=== PATIENT | male | born 1965 | race Caucasian/White ===

== ENCOUNTER 2020-09-03 08:03 | Emergency (ER) | payer MEDICAID, SELFPAY ==
[2020-09-03 08:04] VITALS: BP 156/86; PULSE 76; RESP 22; TEMP 36; O2SAT 96; BMI 32.4
[2020-09-03 08:05] VITALS: BP 156/86; PULSE 76; RESP 22; TEMP 36; O2SAT 96
--- NOTE | 2020-09-03 08:12 | EDS_ITS ---
HPI History of Present Illness Chief Complaint: Bite Narrative Narrative: Patient presents with multiple dog bites. He states that he went to pet the dog this morning about an hour ago when it started to bite him. He sustained bites to the left and right arm. His last tetanus is unknown. He sustained a laceration to the left proximal forearm and left wrist area. He sustained also multiple puncture wounds. He called EMS and they administered fentanyl for pain control. He has had no fevers. Bleeding was controlled on scene. The dog's immunizations are all up-to-date as well. Tetanus Immunization: Unknown PFSH PFSH Medical History Asthma Chest pain Coronary artery disease GERD (gastroesophageal reflux disease) Hypertension Myocardial infarct Smoker Home Medications cefuroxime axetil 500 mg PO BID #20 tab 09/03/20 [Rx Last Taken Unknown] hydrocodone-acetaminophen 1 tab PO Q6H PRN PRN 3 Days #10 tablet 09/03/20 [Rx Last Taken Unknown] Allergy/AdvReac Type Severity Reaction Status Date / Time Penicillins [PCN] Allergy Vomiting Verified 09/03/20 08:06 Surgical History History of coronary artery stent placement Social History Smoking Status: Current some day smoker ROS [facility] ED Constitutional Constitutional ED: Denies chills or fever(s) Eyes Eyes: Denies blurry vision, change in vision or diplopia ENT ENT ED: Denies ear pain, rhinorrhea or sore throat Cardiovascular Cardiovascular: Denies chest pain or palpitations Respiratory/Chest Respiratory/Chest: Denies cough, dyspnea or sputum Gastrointestinal Gastrointestinal: Denies abdominal pain, diarrhea, nausea or vomiting Genitourinary Genitourinary ED: Denies dysuria, hematuria or urinary frequency Musculoskeletal Musculoskeletal: Denies back pain or neck pain Integumentary Reports other Details: Multiple dog bites Neurologic Neurologic: Denies headache(s), numbness or weakness Psychiatric Psychiatric: Denies anxiety or depression Endocrine Endocrinology: Denies polydipsia or polyuria EXAM Physical Exam Const Vital Signs: 09/03/20 08:04 09/03/20 08:05 Temperature 96.8 F L 96.8 F L Temperature Source Oral Oral Pulse Rate 76 76 Respiratory Rate 22 H 22 H Blood Pressure 156/86 H 156/86 H Blood Pressure Mean 109 109 Pulse Ox 96 96 Oxygen Delivery Method Room Air Room Air Positive well nourished and well developed General Appearance ED: well developed HEENT normocephalic and atraumatic Eyes PERRL and EOMs intact bilaterally Neck full ROM and supple Extremity Extremity Narrative: Distal left upper arm, whole left forearm and right forearm due to dog bitesTenderness Neuro oriented x3, CN's II-XII intact bilaterally and no focal motor deficits Sensorium / Orientation: alert Skin Skin Narrative: Multiple dog bite puncture wounds noted at the left distal forearm, left distal upper arm and right forearm. He also has a 2.5 cm laceration on the dorsal side of left wrist. There is also a 7 cm T-shaped laceration of the left proximal forearm on the radial side. Bleeding is controlled in all of these areas. Trauma: other MDM MDM MDM Narrative Medical decision making narrative: The patient had his tetanus updated. I started him on Ceftin for antibiotic prophylaxis. Lacerations were repaired with 10 total sutures, loosely approximated. I will give him follow-up with wound care as this will likely need multiple visits to ensure proper healing. Discharge Plan Triage Chief Complaint: Bite ED Provider: Benigno Valentin Dx/Rx/DC Orders Clinical Impression: Dog bite of arm Instructions: ED Dog Bite Prescriptions: New cefuroxime axetil 500 mg tablet 500 mg PO BID Qty: 20 RF: 0 hydrocodone-acetaminophen [hydrocodone-acetaminophen] 1 TABLET tablet 1 tab PO Q6H PRN PRN (Reason: Pain) 3 Days Qty: 10 RF: 0 Primary Care Provider: Care Physician,No Primary Referrals: Care Physician,No Primary [Primary Care Provider] - Clinic,NOW [NON-STAFF] - Disposition Disposition: Home, self care
[2020-09-03] MEDS: CEFUROXIME AXETIL 250 MG TABLET 500 MG PO (08:30)
[2020-09-03] MEDS: Diphth,Pertuss(Acell),Tet Vac 0.5 ML Vial IM (08:35)
[2020-09-03] MEDS: Lidocaine 1% (20 ml mdv) 20 ML Vial INFILT (09:30)
[2020-09-03 09:35] VITALS: BP 176/88; PULSE 76; RESP 16; O2SAT 97
== END 2020-09-03 09:35 | disposition home or self-care (01) ==
PROVIDERS: Emergency Provider Emergency Medicine
DX: S50.872A Other superficial bite of left forearm, initial encounter (principal); S50.871A Other superficial bite of right forearm, initial encounter; S60.872A Other superficial bite of left wrist, initial encounter; W54.0XXA Bitten by dog, initial encounter; Y93.9 Activity, unspecified; Y92.9 Unspecified place or not applicable; I25.2 Old myocardial infarction; I25.10 Atherosclerotic heart disease of native coronary artery without angina pectoris; J45.909 Unspecified asthma, uncomplicated; Z95.5 Presence of coronary angioplasty implant and graft; Z87.891 Personal history of nicotine dependence
CPT/HCPCS: 12004; 90471; 90715; 99285

== ENCOUNTER 2020-09-05 23:50 | Emergency (ER) | payer MEDICAID, SELFPAY ==
[2020-09-05 23:50] VITALS: BP 159/76; PULSE 118; RESP 18; TEMP 36.7; O2SAT 99; BMI 33.4
[2020-09-05 23:52] VITALS: BP 159/76; PULSE 100; RESP 18; TEMP 36.7; O2SAT 99
--- NOTE | 2020-09-06 00:27 | CT_ITS ---
STUDY: CT LEFT FOREARM WITH CONTRAST REASON FOR EXAM: Male, 55 years old. infected dog bite to left forearm RADIATION DOSAGE (If Supplied By Facility): CTDIvol = ( 24.58 ) mGy, DLP = ( 910.93 ) mGycm TECHNIQUE: Transaxial CT imaging of the forearm was performed post contrast administration. The examination was performed with intravenous administration of IV 100mL Isovue-300. Sagittal and coronal images were reconstructed. Individualized dose optimization techniques were used for this CT. COMPARISON: None. FINDINGS: No acute osseous injury. Diffuse subcutaneous soft tissue swelling and edema with subcutaneous emphysema compatible with history of dog bite. Likely cellulitis. No evidence of abscess. No evidence of deep muscular extension. CT/Extremity Upper WITH Contrast IMPRESSION: Probable cellulitis. No evidence of abscess. No evidence of osseous involvement. Electronically Signed: Chalo Finch DO at 1:31 EDT Tel , Service support ,
[2020-09-06 00:49] LABS: Anion Gap 4 (5-15); BUN 17 mg/dL (7-18); BUN/Creat Ratio 10.8 RATIO (10-20); Calcium,Total 8.5 mg/dL (8.5-10.1); Chloride 101 mmol/L (98-107); Creatinine, Serum 1.58 mg/dL (0.70-1.30); EST Glomerular Filtration Rate 49 mL/min (>60); Est Glom Filt Rate - Afr Amer 59 mL/min (>60); Estimated Creatinine Clearance 47.11 ml/min; Glucose 132 mg/dL (74-106); Potassium 4.2 mmol/L (3.5-5.1); Sodium Level 132 mmol/L (136-145)
[2020-09-06 00:52] VITALS: BP 159/76; PULSE 100; RESP 18; TEMP 36.7; O2SAT 99
[2020-09-06 01:08] LABS: Absolute Lymphocyte Count 1.34 X10^3/uL (0.83-4.51); Absolute Neutrophil Count 19.4 X10^3/uL (2.0-7.7); Basophil# 0.08 X10^3/uL; Basophil% 0.4 % (0-1); Eosinophil# 0.29 X10^3/uL; Eosinophils% 1.3 % (0-5); Hematocrit 42.1 % (40-54); Hemoglobin 13.8 g/dL (13.0-16.5); Lymphocyte # 1.34 X10^3/ul (0.83-4.51); Lymphocyte % 5.9 % (19-41); Mean Corp Hgb Conc 32.8 g/dL (32-36); Mean Corpuscular Hgb 28.3 pg (27.0-32.0); Mean Corpuscular Volume 86.4 fL (80-94); Mean Platelet Vol. 10.9 fl (6.2-12.0); Monocyte% 6.2 % (0-10); NRBC Flagged by Analyzer 0 % (0-5); Neutrophil # 19.38 X10^3/uL (2.7-7.7); Neutrophil % 85.6 % (47-70); Platelet Count 337 K/mm3 (150-450); RBC Distribution Width CV 13.5 % (11.6-14.6); RBC Distribution Width SD 42.7 fl (35.1-43.9); Red Blood Count 4.87 M/mm3 (4.6-6.2); White Blood Count 22.6 K/mm3 (4.4-11.0)
[2020-09-06] MEDS: Ciprofloxacin 400 MG/200 ML BAG 200 MG IV (01:49)
[2020-09-06 01:50] VITALS: BP 146/80
[2020-09-06 02:00] VITALS: BP 146/80; PULSE 91; RESP 18; TEMP 36.9; O2SAT 99
[2020-09-06 02:52] LABS: Lactic Acid 1.3 mmol/L (0.4-1.9)
--- NOTE | 2020-09-06 03:22 | EDS_ITS ---
HPI History of Present Illness Chief Complaint: Bite Informant: patient Occured/Mechanism Comment: Dog bite on September 03 Onset/Context/Timing Onset: Days Context: Gradual Onset Timing: Continuous Quality of Pain: Aching Location: Left forearm and hand Current Severity: Moderate Maximum Severity: Moderate Worsened by: Use Associated Symptoms Associated Symptoms: Negative for Parasthesia, Weakness and Loss of Funtion Narrative Narrative: Patient was seen on September 03 after dog bite to his left forearm and hand. This was a large wound, gaping open. It was irrigated and closed in the ED. The patient was started on clindamycin. Despite his compliance with antibiotics, the areas have been increasingly warm, red, swollen. He has a wound to his proximal third left forearm that is draining pus Tetanus Immunization: <5 years Prior similar symptoms: No ROS ROS ED Constitutional Constitutional ED: Denies chills, fever(s) or sweats Eyes Eyes: Denies change in vision ENT ENT ED: Denies ear pain Cardiovascular Cardiovascular: Denies chest pain Respiratory/Chest Respiratory/Chest: Denies dyspnea Gastrointestinal Gastrointestinal: Denies abdominal pain Genitourinary Genitourinary ED: Denies dysuria Musculoskeletal Musculoskeletal: Reports arthralgias and myalgias; Denies back pain or neck pain Integumentary Reports abscess; Denies Abrasions or rash Neurologic Neurologic: Denies headache(s), paresthesias or weakness Psychiatric Psychiatric: Denies depression Endocrine Endocrinology: Denies polyuria Hematologic/Lymphatic Hematologic/Lymphatic: Denies easy bruising Allergic/Immunologic Allergic/Immunologic ED: Denies urticaria PFSH PFSH Medical History Asthma Chest pain Coronary artery disease GERD (gastroesophageal reflux disease) Hypertension Myocardial infarct Smoker Home Medications cefuroxime axetil 500 mg PO BID #20 tab 09/03/20 [Rx Last Taken Unknown] hydrocodone-acetaminophen 1 tab PO Q6H PRN PRN 3 Days #10 tablet 09/03/20 [Rx Last Taken Unknown] Allergy/AdvReac Type Severity Reaction Status Date / Time Penicillins [PCN] Allergy Vomiting Verified 09/05/20 23:52 Surgical History History of coronary artery stent placement Social History Smoking Status: Current some day smoker EXAM Physical Exam Const Vital Signs: 09/05/20 23:50 09/05/20 23:52 09/06/20 00:52 Temperature 98.1 F 98.1 F 98.1 F Temperature Source Temporal Temporal Temporal Pulse Rate 118 H 100 100 Respiratory Rate 18 18 18 Blood Pressure 159/76 H 159/76 H 159/76 H Blood Pressure Mean 103 103 103 Pulse Ox 99 99 99 Oxygen Delivery Method Room Air Room Air Room Air 09/06/20 01:50 09/06/20 02:00 Temperature 98.5 F Temperature Source Temporal Pulse Rate 91 Respiratory Rate 18 Blood Pressure 146/80 H 146/80 H Blood Pressure Mean 102 102 Pulse Ox 99 Oxygen Delivery Method Room Air Positive well nourished and well developed General Appearance ED: well developed HEENT normocephalic and atraumatic Eyes EOMs intact bilaterally Neck full ROM Resp normal respiratory effort Cardio regular rhythm Extremity full ROM; Negative for normal to inspection Extremity Narrative: Multiple sutured wounds to his left forearm and hand with diffuse swelling and tenderness, erythema, warmth. There is some minimal pus draining from the wound to his left proximal forearm General Extremety ED: Yes edema and tenderness; Negative for deformity General Extremity: edema; Negative for deformity Neuro oriented x3 and no sensory deficits noted Sensorium / Orientation: alert Motor Exam: strength 5/5 throughout Psych mental status grossly normal Skin Skin Narrative: See above MDM MDM MDM Narrative Medical decision making narrative: Patient has failed outpatient prophylaxis for his dog bite. His white count is 22,000. Lactate was normal. CT showed cell ulitis without signs of abscess. Patient will need his wounds washed out and will need IV antibiotics. He has antibiotic allergies and was treated with clindamycin and Cipro. I do not have hand surgery or plastic surgery at this facility. I spoke with orthopedics and they do not treat this problem. After discussion with the patient, he will be transferred to [facility], accepted by Dr. Wilks. Lab Data Attestation: I reviewed the patient's lab results. Labs: Laboratory Results - last 24 hr 09/06/20 09/06/20 09/06/20 00:25 00:25 00:25 WBC 22.6 H RBC 4.87 Hgb 13.8 Hct 42.1 MCV 86.4 MCH 28.3 MCHC 32.8 RDW Std Deviation 42.7 RDW Coeff of Johnny 13.5 Plt Count 337 MPV 10.9 Immature Gran % (Auto) 0.600 Neut % (Auto) 85.6 H Lymph % (Auto) 5.9 L [place] % (Auto) 6.2 Eos % (Auto) 1.3 Baso % (Auto) 0.4 Absolute Neuts (auto) 19.4 H Absolute Lymphs (auto) 1.34 Nucleated RBC % 0 Sodium 132 L Potassium 4.2 Chloride 101 Carbon Dioxide 27.0 Anion Gap 4 L BUN 17 Creatinine 1.58 H Estim Creat Clear Calc 47.11 Est GFR (MDRD) Af Amer 59 L Est GFR (MDRD) Non-Af 49 L BUN/Creatinine Ratio 10.8 Glucose 132 H Lactic Acid 1.3 Calcium 8.5 Radiography Diagnostic Testing: Radiology Impression Upper Extremity CT 09/06/20 00:27 IMPRESSION: Probable cellulitis. No evidence of abscess. No evidence of osseous involvement. Electronically Signed: Chalo Finch DO at 1:31 EDT Tel , Service support , Discharge Plan Triage Chief Complaint: Bite ED Provider: Bong Holt Dx/Rx/DC Orders Clinical Impression: Dog bite of left forearm, Cellulitis of forearm, left Prescriptions: No Action cefuroxime axetil 500 mg tablet 500 mg PO BID Qty: 20 RF: 0 hydrocodone-acetaminophen [hydrocodone-acetaminophen] 1 TABLET tablet 1 tab PO Q6H PRN PRN (Reason: Pain) 3 Days Qty: 10 RF: 0 Primary Care Provider: Care Physician,No Primary Referrals: Care Physician,No Primary [Primary Care Provider] - Disposition Disposition: Transfer to another type HCF
[2020-09-06 04:00] VITALS: BP 138/83; PULSE 101; RESP 18; TEMP 37; O2SAT 93
--- NOTE | 2020-09-10 14:22 | ED.RN ---
PT NOTIFIED OF PRELIMINARY POSITIVE BLOOD CULTURES. HAS APPT WITH PCP IN 2 DAYS, REPORTS HE IS DOING MUCH BETTER. WILL RELAY INFORMATION TO PCP ON VISIT. PT INSTRUCTED TO RETURN WITH ANY ISSUES.
== END 2020-09-06 04:01 | disposition other institution (70) ==
PROVIDERS: Emergency Provider Emergency Medicine
DX: S50.872A Other superficial bite of left forearm, initial encounter (principal); S60.572A Other superficial bite of hand of left hand, initial encounter; L03.114 Cellulitis of left upper limb; W54.0XXA Bitten by dog, initial encounter; Y93.9 Activity, unspecified; Y92.9 Unspecified place or not applicable; I25.2 Old myocardial infarction; I25.10 Atherosclerotic heart disease of native coronary artery without angina pectoris; J45.909 Unspecified asthma, uncomplicated; Z95.5 Presence of coronary angioplasty implant and graft; Z87.891 Personal history of nicotine dependence
CPT/HCPCS: 36415; 73201; 80048; 83605; 85025; 87040; 87077; 87426; 96365; 96368; 99285; J7050; Q9967; A4216; J0744

== ENCOUNTER 2021-05-16 08:03 | Emergency (ER) | payer MEDICAID, SELFPAY ==
[2021-05-16 08:05] VITALS: BP 189/103; PULSE 101; RESP 18; TEMP 36.2; O2SAT 97; BMI 32.6
--- NOTE | 2021-05-16 08:16 | EDS_ITS ---
HPI HPI - URI History of Present Illness Chief Complaint: Shortness of Breath Detail of Chief Complaint: Mild dyspnea, cough, headache Informant: patient Narrative Narrative: Patient presents to the emergency department with complaint of some mild dyspnea as well as cough and headache that started yesterday. He has not tested himself for COVID and denies any exposures or close contacts. Patient does not have the COVID-vaccine. He denies chest pain. Patient denies fever. He does complain of body aches Prior similar symptoms: No ROS ROS ED Constitutional Constitutional ED: Reports systems reviewed and no addt'l complaints, except as documented; Denies body ache(s), change in weight or chills Eyes Eyes: Denies acute decrease in peripheral vision, change in vision, double vision or loss of vision ENT ENT ED: Reports none and sore throat; Denies ear pain, lip swelling, loss taste/smell, neck pain or otalgia Cardiovascular Cardiovascular: Reports none; Denies abdominal pain, chest pain with activity, leg edema, lightheadedness, palpitations, rapid heart rate or syncope Respiratory/Chest Respiratory/Chest: Reports none, cough and dyspnea; Denies change in mental status, dry cough, hemoptysis, shortness of breath at rest or shortness of breath with exertion Gastrointestinal Gastrointestinal: Reports none; Denies abdominal pain, change in stool characte r, diarrhea, hematemesis, hematochezia, melena, rectal bleeding or vomiting Genitourinary Genitourinary ED: Reports none; Denies abdominal discomfort, anuria, dysuria, genital pain or polyuria Musculoskeletal Musculoskeletal: Reports none and myalgias; Denies arthralgias, back pain, difficulty walking, extremity pain or muscle weakness Integumentary Reports none; Denies abscess or rash Neurologic Neurologic: Reports none and headache(s); Denies abnormal gait, confusion, focal weakness, frequent falls, loss of vision, numbness, paresthesias, radicular pain, vertigo or weakness Psychiatric Psychiatric: Reports systems reviewed and no addt'l complaints, except as documented and none; Denies behavioral changes, confusion, difficulty concentrating, hallucinations, suicidal ideation, tactile hallucinations or visual hallucinations Endocrine Endocrinology: Denies none, cold intolerance, excessive sweating, fatigue or heat intolerance Hematologic/Lymphatic Hematologic/Lymphatic: Reports none; Denies anemia, easy bleeding or easy bruising Allergic/Immunologic Allergic/Immunologic ED: Denies as per HPI, none, lip swelling, mouth swelling, throat swelling, tongue swelling or hives PFSH PFSH Medical History Asthma Chest pain Coronary artery disease GERD (gastroesophageal reflux disease) Hypertension Myocardial infarct Smoker Home Medications lisinopril 5 mg PO DAILY #30 tab 05/16/21 [Rx Last Taken Unknown] Allergy/AdvReac Type Severity Reaction Status Date / Time Penicillins [PCN] Allergy Vomiting Verified 05/16/21 08:04 Surgical History History of coronary artery stent placement Social History Smoking Status: Former smoker EXAM Physical Exam Const Vital Signs: 05/16/21 08:05 05/16/21 08:22 Temperature 97.2 F L Temperature Source Temporal Pulse Rate 101 H Respiratory Rate 18 Respiratory Effort Normal Non-Labored Respiratory Depth Normal Respiratory Pattern Normal Blood Pressure 189/103 H Blood Pressure Mean 131 Pulse Ox 97 Oxygen Delivery Method Room Air Positive well nourished and well developed General Appearance ED: well developed and NAD HEENT Reports TM's clear and moist mucous membranes normocephalic and atraumatic; Negative for trauma or tenderness Tympanic Membrane ED: Yes TM's clear Eyes PERRL and EOMs intact bilaterally General Eye ED: Negative for pale conjunctiva or scleral icterus Neck no lymphadenopathy, supple and no JVD General: Negative for tenderness Chest Wall inspection of chest normal and palpation of chest normal Chest: Negative for tenderness Resp normal respiratory effort and clear to auscultation bilaterally Effort and Inspection: Negative for respiratory distress or pain with movement Auscultation: Negative for rhonchi, wheezes or diminished lung sounds Cardio regular rate, regular rhythm, S1 normal heart sound, S2 normal heart sound and no murmurs Peripheral Pulses: pulses 2+ throughout GI normal to inspection, nondistended, normoactive bowel sounds, soft to palpation, non-tender, non-distended and no masses Back/Spine no CVA tenderness and no thoracic nor lumbar tenderness Extremity normal to inspection General Extremety ED: Negative for edema General Extremity: Negative for edema Neuro oriented x3, CN's II-XII intact bilaterally, no sensory deficits noted and gait normal Sensorium / Orientation: awake, alert, oriented to person, oriented to place and oriented to time Motor Exam: strength 5/5 throughout and strength abnormal Psych mental status grossly normal Skin no rashes or lesions noted and no wounds MDM MDM MDM Narrative Medical decision making narrative: Patient had a rapid COVID-19 test that was positive. At this point I discussed with him monoclonal antibody infusion and he wants to proceed with that. Symptom onset occurred: [date] Positive COVID-19 test occurred: [date] The FDA has authorized the emergency use of monoclonal antibody treatment (bamlanivimab/etesevimab or casirivimab/imdevimab) for mild to moderate COVID-19 in adults and pediatric patients with positive results of direct SARS?Cov?2 viral testing ages 12 and older, at least 40 kg, who are at high risk for progressing to severe COVID-19 and or hospitalization. The significant known and potential risks (allergic reactions, worsening of symptoms after treatment, or side effects from injection including brief pain, bleeding, bruising of the skin, soreness, swelling, possible infection at the infusion site) and benefits (decrease chance of progression to severe COVID-19) of a monoclonal antibody infusion, and the extent to which such potential risks and benefits are unknown. Note that worsening symptoms after treatment may occur but it is unknown whether these symptoms are related to treatment or are due to the progression of COVID-19. Worsening symptoms may include: fever, difficulty breathing, rapid or slow heart rate, tiredness, weakness or confusion. If these symptoms occur, patients are encouraged to seek immediate medical attention. These treatments are still being studied, all possible side effects may not be listed or known at this time. Patients treated with monoclonal antibody infusion should continue to self- isolate and use infection control measures (such as wear mask, isolate, social distance, avoid sharing personal items, clean and disinfect high touch surfaces, and frequent handwashing) according to the CDC guidelines. The fact sheet for patients, parents and caregivers will be provided prior to the administration of the medication. No drugs are approved by the FDA at this time to treat outpatients with mild or moderate symptoms of COVID-19. In addition to IV monoclonal antibodies, there are oral medications that have received authorization from the FDA to treat [id number] COVID-19 in patients at high risk for progression to severe COVID-19. These medications may not be appropriate for all patients and available drug supply may be limited. However, these oral medications may be more effective against the omicron variant. The following information was communicated to the patient or caregiver: Monoclonal antibody infusion for COVID-19 is not an FDA approved drug. The FDA has authorized the emergency use of monoclonal antibody therapy. The patient had the option to refuse or accept treatment with monoclonal antibody therapy. The patient was informed that the number of people treated with monoclonal antibody therapy at this time is small. The potential benefits and the potential risks of monoclonal antibody therapy are not fully known. Potential benefits of monoclonal antibody include a reduced risk of progressing to severe COVID-19 infection. Potential risks or side effects of monoclonal antibody therapy include allergic reactions, side effects from injection including brief pain, bleeding, bruising of the skin, soreness, swelling, possible infection at the infusion site and worsening of symptoms. Due to the changes in the virus that causes COVID-19, some monoclonal antibody treatments may not be effective for all forms of the virus (known as variants). This includes the omicron variant. The patient stated understanding of this information communicated and wished to proceed with monoclonal antibody infusion therapy. Current symptoms include: Shortness of breath, cough (productive versus nonproductive), fever, headache, nausea/vomiting, body aches, chills, general malaise, loss of taste or smell, sneezing, nasal congestion. Discharge Plan Triage Chief Complaint: Shortness of Breath ED Provider: Lorene Lin Dx/Rx/DC Orders Clinical Impression: COVID-19 Instructions: ED - COVID Monoclonal AB Infusion ..., Caring for Someone Who Has COVID-19 Prescriptions: New lisinopril 5 mg tablet 5 mg PO DAILY Qty: 30 RF: 0 Primary Care Provider: Care Physician,No Primary Referrals: Frank Sanchez MD [NON-STAFF] - 5-7 Days Care Physician,No Primary [Primary Care Provider] - Disposition Disposition: Home, Self Care
== END 2021-05-16 09:19 | disposition home or self-care (01) ==
PROVIDERS: Emergency Provider Emergency Medicine; Visit Provider Emergency Medicine
DX: U07.1 COVID-19 (principal); I10 Essential (primary) hypertension; I25.10 Atherosclerotic heart disease of native coronary artery without angina pectoris; Z87.891 Personal history of nicotine dependence; I25.2 Old myocardial infarction; J45.909 Unspecified asthma, uncomplicated; Z79.899 Other long term (current) drug therapy
CPT/HCPCS: 87426; 87804; 99282

== ENCOUNTER 2021-05-20 14:55 | Outpatient (CLI) | payer MEDICAID, SELFPAY ==
[2021-05-20] MEDS: 0.9% Saline Lock 10 ML Syringe IV (15:27)
[2021-05-20 15:28] VITALS: BP 158/86; PULSE 86; RESP 16; TEMP 36.4; O2SAT 100; BMI 28.1
[2021-05-20 16:02] VITALS: BP 137/75; PULSE 71; RESP 16; TEMP 37.1; O2SAT 98
[2021-05-20 16:58] VITALS: BP 129/83; PULSE 69; RESP 16; TEMP 36.9; O2SAT 100
== END 2021-05-20 23:59 | disposition home or self-care (01) ==
LOC: MS3OUT 14:56 → MS3 14:57
PROVIDERS: Referring Provider Emergency Medicine; Visit Provider Emergency Medicine
DX: U07.1 COVID-19 (principal)
CPT/HCPCS: J7050; M0245; Q0245; A4216

== ENCOUNTER 2021-07-19 12:16 | Emergency (ER) | payer MEDICAID, SELFPAY ==
[2021-07-19 12:17] VITALS: BP 146/90; PULSE 60; RESP 18; TEMP 36.4; O2SAT 100; BMI 29.0
[2021-07-19 12:59] LABS: Absolute Lymphocyte Count 1.62 X10^3/uL (0.83-4.51); Absolute Neutrophil Count 11.2 X10^3/uL (2.0-7.7); Basophil# 0.09 X10^3/uL; Basophil% 0.6 % (0-1); Eosinophil# 0.18 X10^3/uL; Eosinophils% 1.3 % (0-5); Hematocrit 44.3 % (40-54); Lymphocyte # 1.62 X10^3/ul (0.83-4.51); Lymphocyte % 11.7 % (19-41); Mean Corp Hgb Conc 33.9 g/dL (32-36); Mean Corpuscular Hgb 29.4 pg (27.0-32.0); Mean Corpuscular Volume 86.9 fL (80-94); Mean Platelet Vol. 11.1 fl (6.2-12.0); Monocyte# 0.72 X10^3/uL; Monocyte% 5.2 % (0-10); NRBC Flagged by Analyzer 0 % (0-5); Neutrophil # 11.16 X10^3/uL (2.7-7.7); Neutrophil % 80.6 % (47-70); Platelet Count 336 K/mm3 (150-450); RBC Distribution Width CV 14.2 % (11.6-14.6); RBC Distribution Width SD 45.4 fl (35.1-43.9); White Blood Count 13.9 K/mm3 (4.4-11.0)
[2021-07-19 13:13] LABS: Anion Gap 3 (5-15); BUN 15 mg/dL (7-18); BUN/Creat Ratio 13.2 RATIO (10-20); Calcium,Total 9.1 mg/dL (8.5-10.1); Chloride 109 mmol/L (98-107); Creatinine, Serum 1.14 mg/dL (0.70-1.30); EST Glomerular Filtration Rate 70 mL/min (>60); Est Glom Filt Rate - Afr Amer 85 mL/min (>60); Estimated Creatinine Clearance 67.65 ml/min; Glucose 119 mg/dL (74-106); Potassium 4.2 mmol/L (3.5-5.1); Sodium Level 138 mmol/L (136-145)
[2021-07-19 13:23] LABS: Mucous, Urine 0 SEEN /hpf (<or=2+); Red Blood Cells-Urine 0 SEEN /hpf (0-5); Squamous Epithelial Cells - UA 0 SEEN /hpf (0-5); White Blood Cells 0 SEEN /hpf (0-5)
[2021-07-19 13:24] LABS: Color, Urine Yellow (Yellow); Glucose, Dipstick Normal (Normal); Ketone-Dipstick Negative (Negative); Leukocyte Esterase-Dipstick Negative /ul (Negative); Nitrite-Dipstick Negative (Negative); Occult Blood-Urine Negative /ul (Negative); Protein-Dipstick Negative (Negative); Specific Gravity, Urine 1.015 (1.002-1.030); Urine Bilirubin Dipstick Negative (Negative); Urine Clarity Clear (Clear); Urine Urobilinogen Normal (Normal)
[2021-07-19 13:32] LABS: Bacteria 2+ /hpf (None Seen)
--- NOTE | 2021-07-19 13:39 | CT_ITS ---
STUDY: CT ABDOMEN AND PELVIS WITHOUT CONTRAST REASON FOR EXAM: Male, 55 years old. Flank pain RADIATION DOSAGE (If Supplied By Facility): CTDIvol = ( 15.20 ) mGy, DLP = ( 767.28 ) mGycm TECHNIQUE: Transaxial images were obtained from the dome of the diaphragm to the symphysis pubis without oral contrast, and without intravenous contrast. Sagittal and coronal images were reconstructed. Individualized dose optimization techniques were used for this CT. COMPARISON: None. FINDINGS: The visualized lung bases are unremarkable. Coronary artery calcification. Normal liver. There are multiple small gallstones. Mildly distended gallbladder. Normal spleen. Normal pancreas. Normal bilateral adrenal glands. Normal right kidney. Normal left kidney. There is a small hiatal hernia. Normal small intestine. Normal colon. The appendix is visualized and appears normal. There is scattered atherosclerotic calcification of the abdominal aorta, without a demonstrated aneurysm. Normal inferior vena cava. Normal retroperitoneum. Normal urinary bladder. Normal abdominal wall. There are mild degenerative changes of the visualized lumbar spine. CT/Abdomen/Pelvis without Cont IMPRESSION: Multiple small gallstones. Electronically Signed: Juan Su MD at 14:22 EDT ,
[2021-07-19] MEDS: Ondansetron 4 MG/2 ML Vial IV (13:49)
[2021-07-19] MEDS: 0.9% Normal Saline 1,000 ML 1000 ML IV (13:49)
[2021-07-19] MEDS: Ketorolac 15 MG/ML Vial IV (13:49)
--- NOTE | 2021-07-19 13:50 | EDS_ITS ---
HPI <BRADY Baker - Last Filed: 07/19/21 16:28> History of Present Illness Chief Complaint: Abd Pain Narrative Narrative: 55-year-old male with history of high blood pressure cardiac stents, CAD presents the emergency department with a sudden onset of left upper, lower abdominal pain with immediate nausea vomiting x3. Patient states it was sharp, stabbing, on arrival here, he states it did come down little bit, he still feels nauseous. Patient denies any history of kidney stones, belly surgeries. Denies any fevers or chills. Patient states this came on all of a sudden. Denies any blood in stool or vomit. PFSH <BRADY Baker - Last Filed: 07/19/21 16:28> FOR[facility]LY [facility], LATER [facility] Medical History Asthma Chest pain Coronary artery disease GERD (gastroesophageal reflux disease) Hypertension Myocardial infarct Smoker Home Medications lisinopril 5 mg PO DAILY #30 tab 05/16/21 [Rx Last Taken Unknown] Allergy/AdvReac Type Severity Reaction Status Date / Time Penicillins [PCN] Allergy Vomiting Verified 07/19/21 12:18 Surgical History History of coronary artery stent placement Social History Smoking Status: Former smoker ROS <BRADY Baker - Last Filed: 07/19/21 16:28> ROS ED ROS Narrative Constitutional: Negative for fever, chills, weight loss or gain, weakness Eyes: Negative for vision loss, vision change, double vision ENT: Negative for any hearing changes, ringing in the ears, dizziness, discharge, pain Nose: Negative for any congestion, runny nose, sinus pain, allergies Throat: Negative for any sore throat hoarseness, voice changes, Cardiovascular: Negative for any chest pain, tightness, palpitations, racing heartbeat Respiratory: Negative for any coughs, sputum production, coughing, hemoptysis, shortness of breath, shortness of breath on exertion, Gastrointestinal: Negative for any diarrhea, constipation, blood in stool, blood in vomit. Positive for abdominal pain, nausea and vomiting : Negative for any urinary frequency, incontinence, dysuria, retention, blood in urine Muscle skeletal: Negative for any muscle joint pain, stiffness, myalgias, arthralgias, neck pain, back pain Neurological: Negative for any headache, head injury, dizziness, syncope, numbness or tingling Skin: Negative for any rashes, lumps, itching, abrasions, lacerations Psychiatric: Negative for any depression, anxiety, stress, suicidal ideation, homicidal ideation Hematologic: Negative for any easy bruising, excessive bruising, easy bleeding Allergies: Negative for any eczema, hives, rash EXAM <BRADY Baker - Last Filed: 07/19/21 16:28> Physical Exam Const Vital Signs: 07/19/21 12:17 07/19/21 15:50 07/19/21 16:31 Temperature 97.6 F L Temperature Source Temporal Pulse Rate 60 62 63 Respiratory Rate 18 22 H 18 Blood Pressure 146/90 H 135/80 H 149/83 H Blood Pressure Mean 108 98 Pulse Ox 100 99 99 Oxygen Delivery Method Room Air Room Air Positive well nourished and well developed General Appearance ED: well developed Eyes PERRL and EOMs intact bilaterally Neck no lymphadenopathy and supple Chest Wall inspection of chest normal and palpation of chest normal Resp normal respiratory effort and clear to auscultation bilaterally Cardio regular rate and regular rhythm GI non-distended GI Narrative: Patient is tenderness left upper quadrant, left lower quadrant. Palpation: soft Rectal Exam: tenderness Back/Spine no CVA tenderness Extremity normal to inspection Neuro oriented x3 and CN's II-XII intact bilaterally Sensorium / Orientation: alert Psych mental status grossly normal Skin no rashes or lesions noted and no wounds <Dr. Hans Whatley, - Last Filed: 07/19/21 16:43> Physical Exam Const Vital Signs: 07/19/21 12:17 07/19/21 15:50 07/19/21 16:31 Temperature 97.6 F L Temperature Source Temporal Pulse Rate 60 62 63 Respiratory Rate 18 22 H 18 Blood Pressure 146/90 H 135/80 H 149/83 H Blood Pressure Mean 108 98 Pulse Ox 100 99 99 Oxygen Delivery Method Room Air Room Air MDM <BRADY Baker Last Filed: 07/19/21 16:28> MDM Lab Data Lab results narrative: Patient appears well, patient appears nontoxic, vital signs are stable. Patient presents to the emergency department with a sudden onset of left upper, lower abdominal pain with nausea vomiting. Patient was given IV fluids, IV Toradol, IV Zofran, this did improve the symptoms, patient was sleeping on repeat exam. Patient CT of the abdomen pelvis showed multiple small gallstones, mild inflammation of the gallbladder. Due to this finding, the patient's white blood count of 13 his sudden onset of pain, patient will be given an ultrasound of the right upper quadrant. Patient returns from ultrasound in no distress, patient is resting. Patient ultrasound shows cholelithiasis, normal distended gallbladder, negative for any cholecystitis. At this time, I believe patient is stable for discharge. Patient remains pain-free on reassessment. Patient will follow up with surgery and instructed to follow-up with surgery. Patient is agreed with the plan instructed to stay away from fried fatty foods. Patient stable for discharge Labs: Laboratory Results - last 24 hr 07/19/21 07/19/21 07/19/21 12:43 12:43 12:43 WBC 13.9 H RBC 5.10 Hgb 15.0 Hct 44.3 MCV 86.9 MCH 29.4 MCHC 33.9 RDW Std Deviation 45.4 H RDW Coeff of Johnny 14.2 Plt Count 336 MPV 11.1 Immature Gran % (Auto) 0.600 Neut % (Auto) 80.6 H Lymph % (Auto) 11.7 L Ness % (Auto) 5.2 Eos % (Auto) 1.3 Baso % (Auto) 0.6 Absolute Neuts (auto) 11.2 H Absolute Lymphs (auto) 1.62 Nucleated RBC % 0 Sodium 138 Potassium 4.2 Chloride 109 H Carbon Dioxide 26.0 Anion Gap 3 L BUN 15 Creatinine 1.14 Estim Creat Clear Calc 67.65 Est GFR (MDRD) Af Amer 85 Est GFR (MDRD) Non-Af 70 BUN/Creatinine Ratio 13.2 Glucose 119 H Calcium 9.1 Total Bilirubin 0.80 Direct Bilirubin 0.11 AST 31 ALT 39 Alkaline Phosphatase 146 H Total Protein 7.9 Albumin 3.9 Globulin 4.0 Lipase 100 Urine Color Urine Clarity Urine pH Ur Specific [place] Urine Protein Urine Glucose (UA) Urine Ketones Urine Occult Blood Urine Nitrite Urine Bilirubin Urine Urobilinogen Ur Leukocyte Esterase Urine RBC Urine WBC Ur Squamous Epith Cells Urine Bacteria Urine Mucus 07/19/21 13:15 WBC RBC Hgb Hct MCV MCH MCHC RDW Std Deviation RDW Coeff of Johnny Plt Count MPV Immature Gran % (Auto) Neut % (Auto) Lymph % (Auto) Ness % (Auto) Eos % (Auto) Baso % (Auto) Absolute Neuts (auto) Absolute Lymphs (auto) Nucleated RBC % Sodium Potassium Chloride Carbon Dioxide Anion Gap BUN Creatinine Estim Creat Clear Calc Est GFR (MDRD) Af Amer Est GFR (MDRD) Non-Af BUN/Creatinine Ratio Glucose Calcium Total Bilirubin Direct Bilirubin AST ALT Alkaline Phosphatase Total Protein Albumin Globulin Lipase Urine Color Yellow Urine Clarity Clear Urine pH 8.0 Ur Specific [place] 1.015 Urine Protein Negative Urine Glucose (UA) Normal Urine Ketones Negative Urine Occult Blood Negative Urine Nitrite Negative Urine Bilirubin Negative Urine Urobilinogen Normal Ur Leukocyte Esterase Negative Urine RBC 0 SEEN Urine WBC 0 SEEN Ur Squamous Epith Cells 0 SEEN Urine Bacteria 2+ Urine Mucus 0 SEEN Radiography Diagnostic Testing: Clinical Impression(s) from Imaging Studies Abdomen/Pelvis CT 07/19/21 13:39 IMPRESSION: Multiple small gallstones. Electronically Signed: Juan Su MD at 14:22 EDT , Gallbladder Ultrasound 07/19/21 15:00 IMPRESSION: Cholelithiasis. Electronically Signed: Aki Bolaños MD at 16:13 EDT , <Dr. 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 Agree with assessment work-up. He complains of right flank pain. Patient medicated for pain with Toradol, Zofran and symptoms improved. CT of the abdomen pelvis did not show any renal calculi or ureteral calculi. There are gallstones present for which an ultrasound of the right upper quadrant was ordered and is negative for acute cholecystitis but does show cholelithiasis. Patient reevaluated is currently pain-free resting comfortably. I feel he is safe for outpatient follow-up and given a general surgery referral. Other than a leukocytosis his lab work is unremarkable. He seems to have a little white blood cell count frequently and this is actually lower than his previous. Lab Data Attestation: I reviewed the patient's lab results. Labs: Laboratory Results - last 24 hr 07/19/21 07/19/21 07/19/21 12:43 12:43 12:43 WBC 13.9 H RBC 5.10 Hgb 15.0 Hct 44.3 MCV 86.9 MCH 29.4 MCHC 33.9 RDW Std Deviation 45.4 H RDW Coeff of Johnny 14.2 Plt Count 336 MPV 11.1 Immature Gran % (Auto) 0.600 Neut % (Auto) 80.6 H Lymph % (Auto) 11.7 L Ness % (Auto) 5.2 Eos % (Auto) 1.3 Baso % (Auto) 0.6 Absolute Neuts (auto) 11.2 H Absolute Lymphs (auto) 1.62 Nucleated RBC % 0 Sodium 138 Potassium 4.2 Chloride 109 H Carbon Dioxide 26.0 Anion Gap 3 L BUN 15 Creatinine 1.14 Estim Creat Clear Calc 67.65 Est GFR (MDRD) Af Amer 85 Est GFR (MDRD) Non-Af 70 BUN/Creatinine Ratio 13.2 Glucose 119 H Calcium 9.1 Total Bilirubin 0.80 Direct Bilirubin 0.11 AST 31 ALT 39 Alkaline Phosphatase 146 H Total Protein 7.9 Albumin 3.9 Globulin 4.0 Lipase 100 Urine Color Urine Clarity Urine pH Ur Specific [place] Urine Protein Urine Glucose (UA) Urine Ketones Urine Occult Blood Urine Nitrite Urine Bilirubin Urine Urobilinogen Ur Leukocyte Esterase Urine RBC Urine WBC Ur Squamous Epith Cells Urine Bacteria Urine Mucus 07/19/21 13:15 WBC RBC Hgb Hct MCV MCH MCHC RDW Std Deviation RDW Coeff of Johnny Plt Count MPV Immature Gran % (Auto) Neut % (Auto) Lymph % (Auto) Ness % (Auto) Eos % (Auto) Baso % (Auto) Absolute Neuts (auto) Absolute Lymphs (auto) Nucleated RBC % Sodium Potassium Chloride Carbon Dioxide Anion Gap BUN Creatinine Estim Creat Clear Calc Est GFR (MDRD) Af Amer Est GFR (MDRD) Non-Af BUN/Creatinine Ratio Glucose Calcium Total Bilirubin Direct Bilirubin AST ALT Alkaline Phosphatase Total Protein Albumin Globulin Lipase Urine Color Yellow Urine Clarity Clear Urine pH 8.0 Ur Specific [place] 1.015 Urine Protein Negative Urine Glucose (UA) Normal Urine Ketones Negative Urine Occult Blood Negative Urine Nitrite Negative Urine Bilirubin Negative Urine Urobilinogen Normal Ur Leukocyte Esterase Negative Urine RBC 0 SEEN Urine WBC 0 SEEN Ur Squamous Epith Cells 0 SEEN Urine Bacteria 2+ Urine Mucus 0 SEEN Radiography Diagnostic Testing: Clinical Impression(s) from Imaging Studies Abdomen/Pelvis CT 07/19/21 13:39 IMPRESSION: Multiple small gallstones. Electronically Signed: Juan Su MD at 14:22 EDT , Gallbladder Ultrasound 07/19/21 15:00 IMPRESSION: Cholelithiasis. Electronically Signed: Aki Bolaños MD at 16:13 EDT , Discharge Plan Triage Chief Complaint: Abd Pain ED Midlevel Provider: De Ortiz ED Provider: De Ortiz Dx/Rx/DC Orders Clinical Impression: Cholelithiasis, Abdominal pain Instructions: Abdominal Pain, ED Gallstones with Biliary Colic Prescriptions: No Action lisinopril 5 mg tablet 5 mg PO DAILY Qty: 30 RF: 0 Primary Care Provider: Care Physician,No Primary Referrals: Zaina Lawler MD [STAFF PHYSICIAN] - (Please follow-up secondary to your cholelithiasis which means you have gallstones) Care Physician,No Primary [Primary Care Provider] - Print Language: Uzbek Disposition Disposition: Home, Self Care Discharge Date/Time: 07/19/21 16:32
[2021-07-19 14:36] LABS: AST(SGOT) 31 U/L (15-37); Alanine Aminotransfer ALT/SGPT 39 U/L (16-61); Albumin, Serum 3.9 g/dL (3.2-5.0); Alkaline Phosphatase 146 U/L (45-117); Bilirubin, Direct 0.11 mg/dL (0.00-0.30); Lipase 100 U/L (73-393); Protein, Total 7.9 g/dL (6.4-8.2)
--- NOTE | 2021-07-19 15:00 | US_ITS ---
STUDY: ABDOMINAL ULTRASOUND - RIGHT UPPER QUADRANT REASON FOR VISIT: Male, 55 years old Gall stones TECHNIQUE: Ultrasound evaluation of the right upper quadrant was performed with real-time and static matos-scale imaging. TECHNICAL QUALITY: Adequate. COMPARISON: CT earlier today FINDINGS: Liver: The liver measures 16.5 cm. There is normal echogenicity of the liver. The bile ducts are within normal limits. There is hepatic color flow. The direction of portal flow is hepatopetal. There is no demonstrated mass lesion. Gallbladder: Normal distended gallbladder. The gallbladder wall measures 2 mm. There is a negative sonographic Arndt''s sign. There is no pericholecystic fluid. There are multiple echogenic structures within the gallbladder, consistent with multiple gallstones. Common Bile Duct (C.B.D.): The common bile duct measures 5 mm. Pancreas: Normal size of the head, body and tail of the pancreas. There is normal echogenicity of the pancreas. There is no demonstrated pancreatic mass or cyst. Right Kidney: Normal size of the right kidney. The right kidney measures 10.6 cm. Normal renal cortex. The right cortex measures 1.3 cm. There is no demonstrated renal mass or cyst. There is no right hydronephrosis. US/Gallbladder IMPRESSION: Cholelithiasis. Electronically Signed: Aki Bolaños MD at 16:13 EDT ,
[2021-07-19 15:50] VITALS: BP 135/80; PULSE 62; RESP 22; O2SAT 99
[2021-07-19 16:31] VITALS: BP 149/83; PULSE 63; RESP 18; O2SAT 99
== END 2021-07-19 16:32 | disposition home or self-care (01) ==
PROVIDERS: Emergency Provider Nurse Practitioner; Visit Provider Nurse Practitioner
DX: K80.20 Calculus of gallbladder without cholecystitis without obstruction (principal); I10 Essential (primary) hypertension; Z87.891 Personal history of nicotine dependence; I25.10 Atherosclerotic heart disease of native coronary artery without angina pectoris; I25.2 Old myocardial infarction; J45.909 Unspecified asthma, uncomplicated; Z79.899 Other long term (current) drug therapy; Z95.5 Presence of coronary angioplasty implant and graft
CPT/HCPCS: 74176; 76705; 80048; 80076; 81001; 83690; 85025; 96361; 96374; 96375; 99282; A4216; J2405

== ENCOUNTER → 2024-05-04 | Outpatient (CLI) | payer MEDICAID, SELFPAY ==
--- NOTE | 2024-05-04 15:23 | RAD_ITS ---
STUDY: X-RAY - LUMBAR SPINE REASON FOR EXAM: Male, 58 years old. Pain. TECHNIQUE: 6 view(s) of the lumbar spine were obtained. COMPARISON: None FINDINGS: Accentuated lordosis. Mild levoscoliosis. Minimal alignment of the vertebrae. Diffuse mild lower thoracic and lumbosacral facet sclerosis. Minimal diffuse intervertebral disc space narrowing with osteophytes most marked at L1-2. Vascular calcification. RAD/L/S Spine Min 4 Views IMPRESSION: Osteopenia with mild lower thoracic and lumbosacral spondylosis as described. No acute finding. Electronically Signed: Gene Whitney MD at 15:48 EST ,
--- NOTE | 2024-05-04 15:30 | RAD_ITS ---
STUDY: X-RAY - RIGHT HAND REASON FOR EXAM: Male, 58 years old. PAIN TECHNIQUE: 4 views of the right hand. COMPARISON: None. FINDINGS: Normal radiocarpal articulation. Normal distal radioulnar joint. Normal visualized carpal bones. Normal carpal articulations. There is severe degenerative arthrosis of the carpometacarpal (CMC) articulation of the thumb. Normal second through fifth carpometacarpal joints. Normal metacarpi. Normal metacarpophalangeal joint of the thumb. Normal interphalangeal joint of the thumb. Normal proximal and distal phalanges of the thumb. Normal metacarpophalangeal joints of the second through fifth fingers. Normal proximal and distal interphalangeal joints of the second through fifth fingers. Normal phalanges of the second through fifth fingers. The soft tissue structures are unremarkable. 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 Electronically Signed: Sav Osborn MD at 15:15 EST ,
== END | disposition home or self-care (01) ==
LOC: RAD 15:23
PROVIDERS: Referring Provider Anesthesiology; Visit Provider Anesthesiology
DX: M79.641 Pain in right hand (principal); M47.816 Spondylosis without myelopathy or radiculopathy, lumbar region
CPT/HCPCS: 72110; 73130

== ENCOUNTER 2024-08-10 11:00 | Outpatient (RCR) | payer MEDICAID, SELFPAY ==
--- NOTE | 2024-07-15 12:42 | HP.PTEVAL_ITS ---
Patient's Visit Information Visit Information Visit Information: CHELO CARSON is a 58 year old M referred to Physical Therapy by Dr. Clay Morgan MD with a diagnosis of Lumbar spondylosis. Date of Evaluation: 07/15/24 Physical Therapist: CORBY Snow Visit Plan Frequency: 2x /Week Duration: 2 Months Plan: 2x/week for 8 weeks for core stability, B hip stretching *HS, piriformis, LTR, B hip strength, posture exercises with HEP HEP: green strap HS stretch, chair piriformis stretch, LTR Subjective Subjective: Pt has back pain everyday. 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 He has pain towards the end of the day/end of his shift. He has no pain with driving. He has to reposition if he sits too long. He has pain that goes down to B sides of his hips with walking. Getting out of bed is hard with back and neck stiffness. C5 DDD and another one in his neck is ruptured and had nerve blocks. He had x-rays of his lumbar spine and he had severe arthritis and some bone weakness. He has no done any injections in his LB. Dr wants him to do PT first and then they will talk about the next step. Pain back pain: Pain Intensity (Out of 10): 4 B leg pain: Pain Intensity (Out of 10): 0 Objective Objective: LE MMT: R hip flex 16.1 and L 16.7 R knee ext 18 and L 15.7 R knee flex 9.9 and L 6.8 Trunk AROM: Flexion 100, ext 25%, SB B 75 and Rot B 100% Gait: walks with decrease stance time on the R LE Standing heel and toe raises able to walk on heels and toes B Pt had increase pain on the R side with LTR Pt has tight B HS and B Piriformis tightness (R hip tighter) prone lying a little bit of stretch pain MAYNOR: a little bit of pain but no pain when went back into prone. Press up: increase back pain Balance/Special Test Scores Oswestry Low Back Score: 11 Goals Goal 1:: I HEP Goal Time Frame: 6-8 Weeks Goal 2:: Increase LE strength (at the time of the eval: LE MMT: R hip flex 16.1 and L 16.7 R knee ext 18 and L 15.7 R knee flex 9.9 and L 6.8). Goal Time Frame: 6-8 Weeks Goal 3:: Increase flexibility on the R side (piriformis, HS, LTR) and complete those ROM stretches without pain Goal Time Frame: 6-8 Weeks Goal 4:: Be able to tolerated work duties longer without having to sit and rest Goal Time Frame: 6-8 Weeks Rehabilitation Potential Rehabilitation Potential: Good Anticipated Interventions Patient/Client Instruction: Educate patient on: Condition For the Purpose of:: To decrease pain, To increase ROM, To improve muscle performance and motor function, To improve ability to perform ADL's, To increase tolerance to activity/condition/position, To improve performance and independence with ADL's, To decrease level of supervision to perform tasks, To improve gait and locomotor functions, To improve health of tissue, To decrease soft tissue restriction and To increase flexibility/ROM Therapeutic Exercise to Include: Strength training, Postural training, Flexibilty training, Gait and locomotor training, Neuromotor development, Active ROM, Dynamic Lumbar Stabilization and Scapular Strength/Stabilization For the Purpose of:: To decrease pain, To increase ROM, To improve nutrient delivery to tissue, To increase oxygenation perfusion, To improve muscle performance and motor function, To improve ability to perform ADL's, To increase tolerance to activity/condition/position, To improve performance and independence with ADL's, To decrease level of supervision to perform tasks, To improve ability of physical actions for home/community/work/leisure, To improve gait and locomotor functions, To improve health of tissue, To decrease soft tissue restriction, To increase flexibility/ROM and To improve endurance Functional Training to Include: Gait training For the Purpose of:: To improve gait and locomotor functions Cryotherapy (ice pack, ice massage): Yes Thermo therapy (hot pack): Yes For the Purpose of:: To decrease pain, To decrease swelling/inflammation and To increase ROM Text: Thank you for the opportunity to evaluate your patient. For Medicare and Medicare HMO plans, please review the plan of care and approve it. It will need to be FAXED BACK to us at [phone] for Medicare purposes. For Medicare only, by signing this I certify the plan of care. Please let me know if there are questions or concerns regarding this plan of care. Physician Signature: Date:
--- NOTE | 2024-08-10 11:25 | HP.PTDCSUM ---
Discharge Summary D/C summary: It has been my pleasure to treat CHELO CARSON referred by Dr. Clay Morgan MD, with the diagnosis of Lumbar spondylosis for a total of 7 visit(s). Discharge Date: 08/10/24 Please see the following information for a summary of their discharge status. Subjective Subjective: Pt starts having back pain mid day and worse in the evenings. His pain is not as intense. He is back to work and his first day was 17.5 hours and back pain got worse. He reports that he just gets up more often. He has to make a follow up with his Dr. He is doing HEP in evenings and it does help some. Pt reports that he will continue with HEP for now and go back to for reassessment. His HEP does help him so not so stiff in the mornings. Pain back pain: Pain Intensity (Out of 10): 5 B leg pain: Pain Intensity (Out of 10): 0 Overall Improvement % Improvement: 20 Objective Objective/Function: R hip flex 18.1 and L 19.1 R knee ext 20.6 and L 20 R knee flex 13 and L 11 Good B Piriformis and HS length Pt is tighter with LTR on the L compared to the R but will continue to work on this at home. Goals Goal 1:: I HEP Goal Progress: Goal Met Goal 2:: Increase LE strength (at the time of the eval: LE MMT: R hip flex 16.1 and L 16.7 R knee ext 18 and L 15.7 R knee flex 9.9 and L 6.8). Goal Progress: Goal Met Goal 3:: Increase flexibility on the R side (piriformis, HS, LTR) and complete those ROM stretches without pain Goal Progress: Goal Met Goal 4:: Be able to tolerated work duties longer without having to sit and rest Goal Progress: Progressing Plan Plan: DC PT back to . D/C Information Discharge Comments: DC PT to HEP and back to for reassessment d/c sentence: If there are questions or concerns regarding this patient's physical therapy, please feel free to call me at [phone]. Thank you for the referral of this patient. Sincerely, Madison Oconnell, MPT Balance/Gait/Functional tests Balance/Special Test Scores Oswestry Low Back Score: 12 Improvement % Improvement: 20
== END 2024-08-10 12:36 | disposition home or self-care (01) ==
LOC: PT 11:00
PROVIDERS: Referring Provider Anesthesiology; Visit Provider Anesthesiology
DX: M47.816 Spondylosis without myelopathy or radiculopathy, lumbar region (principal)
CPT/HCPCS: 97110; 97161; 97530

== ENCOUNTER 2024-10-24 17:31 | Emergency (ER) | payer MEDICAID, SELFPAY ==
[2024-10-24 17:33] VITALS: BP 128/80; PULSE 93; RESP 16; TEMP 36.4; O2SAT 95; BMI 31.9
--- NOTE | 2024-10-24 18:35 | EX.ED.DYSGE1 ---
HPI History of Present Illness Chief Complaint: Overdose Informant: patient and EMS Onset/Context/Timing Onset: Today Context: Sudden Onset Timing: Continuous Quality: Weakness Location: Generalized Worsened by: Nothing Relieved by: Nothing Narrative Narrative: Patient presents with altered mental status that occurred today. Patient states he took what he thought was a anti-inflammatory medicine. Patient states that he passed out shortly after this. EMS reports giving the patient Narcan and his mental status improved after that. Patient denies any shortness of breath. Patient denies any nausea or vomiting. Patient denies any chest pain. Patient denies any fevers or chills. Patient is having difficulty staying awake. Patient is able to answer questions but falls asleep easily. [facility] Medical History Obesity History of ST elevation myocardial infarction (STEMI) (01/14/16) Gallstones Essential hypertension Atherosclerotic heart disease of [place] coronary artery without angina pectoris COVID-19 (05/16/21) Cellulitis of forearm, left Dog bite of left forearm GERD (gastroesophageal reflux disease) Smoker Asthma Home Medications ?Medication ?Instructions ?Recorded ?Last Taken ?Type NK 10/24/24 Unknown History Allergy/AdvReac Type Severity Reaction Status Date / Time Penicillins (PCN) Allergy Vomiting Verified 10/24/24 17:33 Family History Grandmother Diabetes Heart disease Hypertension Uncle Cancer skin Sister Breast cancer Hypertension Mother Hypertension Heart disease Father Heart disease Surgical History History of coronary artery stent placement (03/14/16) Social History Smoking Status: Current some day smoker tobacco type: cigarettes and cigars per week: 7 alcohol intake: never substance use type: does not use ROS ROS ED Constitutional Constitutional ED: Denies chills or fever(s) Eyes Eyes: Denies blurry vision or change in vision ENT ENT ED: Denies rhinorrhea or sore throat Cardiovascular Cardiovascular: Denies chest pain or palpitations Respiratory/Chest Respiratory/Chest: Denies cough or dyspnea Gastrointestinal Gastrointestinal: Denies nausea or vomiting Genitourinary Genitourinary ED: Denies dysuria or hematuria Musculoskeletal Musculoskeletal: Denies back pain or neck pain Integumentary Denies abscess or rash Neurologic Neurologic: Denies headache(s) or weakness Allergic/Immunologic Allergic/Immunologic ED: Denies mouth swelling or urticaria EXAM Physical Exam Const Vital Signs: 10/24/24 17:33 10/24/24 19:33 10/24/24 21:00 Temperature 97.6 F L 97.8 F Temperature Source Oral Oral Pulse Rate 93 96 86 Respiratory Rate 16 19 H 18 Blood Pressure 128/80 H 132/76 H 135/84 H Blood Pressure Mean 96 94 101 Pulse Ox 95 97 94 Oxygen Delivery Method Room Air Room Air 10/24/24 22:17 10/24/24 23:00 Temperature 98.4 F 97.8 F Temperature Source Oral Pulse Rate 83 80 Respiratory Rate 19 H 23 H Blood Pressure 156/78 H 131/87 H Blood Pressure Mean 104 101 Pulse Ox 100 96 Oxygen Delivery Method Room Air Positive well nourished and well developed General Appearance ED: well developed and NAD HEENT Reports moist mucous membranes Eyes PERRL and EOMs intact bilaterally Eyes Narrative: Pupils are 2 mm and reactive. Neck supple and no JVD Resp normal respiratory effort and clear to auscultation bilaterally Cardio regular rate and regular rhythm GI non-tender and non-distended Palpation: soft Neuro oriented x3, CN's II-XII intact bilaterally and no sensory deficits noted Sensorium / Orientation: alert Motor Exam: strength 5/5 throughout Psych mental status grossly normal Skin no rashes or lesions noted MDM MDM MDM Narrative Medical decision making narrative: Differential diagnosis includes opiate overdose, dehydration, and electrolyte abnormality. CBC will be obtained to assess for leukocytosis and anemia. Basic metabolic profile will be obtained to assess for electrolyte abnormality and renal function. History & Record Review Additional record(s) reviewed:: Prior ED visit and Prior labs Lab Data Attestation: I reviewed the patient's lab results. Lab results narrative: CBC was reviewed. There is a leukocytosis of 21.4. This is consistent with previous results. Basic metabolic profile was reviewed. Potassium was 5.4. There is some hemolysis noted. BUN was 23 and creatinine was 2.13. This was increased from previous results. Labs: Laboratory Results - last 24 hr 10/24/24 19:02 WBC 21.4 H RBC 5.22 Hgb 15.2 Hct 45.7 MCV 87.5 MCH 29.1 MCHC 33.3 RDW Std Deviation 45.0 H RDW Coeff of Johnny 14.0 Plt Count 295 MPV 10.9 Immature Gran % (Auto) 0.800 Neut % (Auto) 89.1 H Lymph % (Auto) 3.9 L [place] % (Auto) 6.0 Eos % (Auto) 0.0 Baso % (Auto) 0.2 Absolute Neuts (auto) 19.0 H Absolute Lymphs (auto) 0.83 Nucleated RBC % 0 Sodium 138 Potassium 5.4 H Chloride 107 Carbon Dioxide 18.9 L Anion Gap 13 BUN 23 H Creatinine 2.13 H Estim Creat Clear Calc 40.00 L Est GFR (MDRD) Non-Af 35 L BUN/Creatinine Ratio 10.7 Glucose 93 Calcium 8.4 Treatment and Re-Evaluation :: Patient was given a repeat dose of Narcan here. Patient became more awake and alert after this. Patient was given IV fluids. Patient was advised of his findings. Patient was directed to stop using opiate pain medication. Patient was instructed to drink plenty of fluids. Patient was instructed to follow-up with his primary care physician in 5 to 7 days. Patient understood and was agreeable with plan. All questions were answered. Discharge Plan Triage Chief Complaint: Overdose ED Provider: Sandro Johnson Dx/Rx/DC Orders Clinical Impression: Opiate overdose, Essential hypertension Instructions: ED Overdose, Opiate Prescriptions: No Action NK Primary Care Provider: Care Physician,No Primary Referrals: Care Physician,No Primary [Primary Care Provider] - Activity Restrictions/Additional Instructions: Follow-up with your primary care physician in 5 to 7 days. Print Language: Citizen Of [place] Disposition Disposition: Home, Self Care Discharge Date/Time: 10/24/24 23:11
[2024-10-24] MEDS: Naloxone 2 MG/2 ML Syringe IV (19:01)
[2024-10-24 19:14] LABS: Absolute Lymphocyte Count 0.83 X10^3/uL (0.83-4.51); Basophil# 0.05 X10^3/uL; Basophil% 0.2 % (0-1); Hematocrit 45.7 % (40-54); Hemoglobin 15.2 g/dL (13.0-16.5); Lymphocyte # 0.83 X10^3/ul (0.83-4.51); Lymphocyte % 3.9 % (19-41); Mean Corp Hgb Conc 33.3 g/dL (32-36); Mean Corpuscular Hgb 29.1 pg (27.0-32.0); Mean Corpuscular Volume 87.5 fL (80-94); Mean Platelet Vol. 10.9 fl (6.2-12.0); Monocyte# 1.29 X10^3/uL; NRBC Flagged by Analyzer 0 % (0-5); Neutrophil # 19.02 X10^3/uL (2.7-7.7); Neutrophil % 89.1 % (47-70); Platelet Count 295 K/mm3 (150-450); Red Blood Count 5.22 M/mm3 (4.6-6.2); White Blood Count 21.4 K/mm3 (4.4-11.0)
[2024-10-24 19:33] VITALS: BP 132/76; PULSE 96; RESP 19; TEMP 36.6; O2SAT 97
[2024-10-24 20:09] LABS: Anion Gap 13 (5-15); BUN 23 mg/dL (4-19); BUN/Creat Ratio 10.7 RATIO (10-20); Calcium,Total 8.4 mg/dL (7.6-11.0); Carbon Dioxide 18.9 mmol/L (21.0-32.0); Chloride 107 mmol/L (98-108); Creatinine, Serum 2.13 mg/dL (0.70-1.20); EST Glomerular Filtration Rate 35 (>60); Glucose 93 mg/dL (70-99); Potassium 5.4 mmol/L (3.3-5.1); Sodium Level 138 mmol/L (133-145)
[2024-10-24 21:00] VITALS: BP 135/84; PULSE 86; RESP 18; O2SAT 94
[2024-10-24] MEDS: 0.9% Normal Saline (1000mL) 1,000 ML 1000 ML IV (21:16)
[2024-10-24 22:17] VITALS: BP 156/78; PULSE 83; RESP 19; TEMP 36.9; O2SAT 100
[2024-10-24 23:00] VITALS: BP 131/87; PULSE 80; RESP 23; TEMP 36.6; O2SAT 96
== END 2024-10-24 23:11 | disposition home or self-care (01) ==
PROVIDERS: Emergency Provider Emergency Medicine; Visit Provider Emergency Medicine
DX: T40.2X4A Poisoning by other opioids, undetermined, initial encounter (principal); I25.10 Atherosclerotic heart disease of native coronary artery without angina pectoris; I10 Essential (primary) hypertension; I25.2 Old myocardial infarction; F17.290 Nicotine dependence, other tobacco product, uncomplicated; Z95.5 Presence of coronary angioplasty implant and graft; F17.210 Nicotine dependence, cigarettes, uncomplicated
CPT/HCPCS: 80048; 85025; 96361; 96374; 99285; A4216

== ENCOUNTER → 2024-11-24 | Outpatient (CLI) | payer MEDICAID, SELFPAY ==
[2024-11-24 12:35] LABS: Hematocrit 38.1 % (40-54); Hemoglobin 12.5 g/dL (13.0-16.5); Immature Granulocytes Count 0.100 X10^3/uL (0.0-0.0); Mean Corp Hgb Conc 32.8 g/dL (32-36); Mean Corpuscular Volume 83.7 fL (80-94); Mean Platelet Vol. 11.8 fl (6.2-12.0); NRBC Flagged by Analyzer 0 % (0-5); Platelet Count 525 K/mm3 (150-450); RBC Distribution Width CV 13.2 % (11.6-14.6); RBC Distribution Width SD 40.4 fl (35.1-43.9); Red Blood Count 4.55 M/mm3 (4.6-6.2); White Blood Count 9.5 K/mm3 (4.4-11.0)
[2024-11-24 13:03] LABS: AST(SGOT) 64 U/L (<=37); Alanine Aminotransfer ALT/SGPT 74 U/L (<=46); Albumin, Serum 3.6 g/dL (3.4-4.8); Alkaline Phosphatase 139 U/L (40-129); Anion Gap 16 (5-15); BUN 22 mg/dL (4-19); BUN/Creat Ratio 20.6 RATIO (10-20); Calcium,Total 9.5 mg/dL (7.6-11.0); Carbon Dioxide 22.6 mmol/L (21.0-32.0); Chloride 99 mmol/L (98-108); Cholesterol 171 mg/dL (<=200); Globulin 3.8 g/dL (2.2-4.2); Glucose 138 mg/dL (70-99); Low Density Lipoprotein Calc. 122 mg/dL; Potassium 4.3 mmol/L (3.3-5.1); Triglycerides 109 mg/dL; Very Low Density Lipoprotein 22 mg/dL (5-40); cholesterol:hdl ratio screen 6.20
== END | disposition home or self-care (01) ==
LOC: VSLAB 10:35
PROVIDERS: PCP Family Medicine; Visit Provider Family Medicine
DX: I25.10 Atherosclerotic heart disease of native coronary artery without angina pectoris (principal)
CPT/HCPCS: 36415; 80053; 80061; 83036; 84443; 85025

== ENCOUNTER → 2024-11-28 | Outpatient (CLI) | payer MEDICAID, SELFPAY ==
--- NOTE | 2024-11-28 16:26 | RAD_ITS ---
PROCEDURE: CHEST PA AND LATERAL 11/28/2024 REASON FOR EXAM: Shortness of breath TECHNIQUE: CHEST PA AND LATERAL COMPARISON: None FINDINGS: No focal consolidation. Bibasilar subsegmental atelectasis. Trace left base effusion. No pneumothorax.. Cardiac silhouette is within normal limits. No acute fractures. RAD/Chest PA and Lateral IMPRESSION: No focal consolidation. Bibasilar subsegmental atelectasis. Trace left base eff usion. Reading Location: [id number]
--- OUTSIDE RECORDS SUMMARY | 2024-11-28 22:53 | XMS RPT_ITS | CCD ---
Author Organization [facility] Care Team Providers Care Glass Mechanic Name Role Phone Unavailable Primary Care Provider Unavailabl e Care Physician, No Primary Primary Care Provider Unavailable Cathy CAMARILLO, Dr. Williamson Attending Provider [phone] Dr. Clay Morgan MD Referring Provider [phone] Care Physician, No Primary Primary Care Provider Unavailable Dr. Clay Morgan MD Attending Provider [phone] Dr. Clay Morgan MD Referring Provider [phone] Dr. Sandro Johnson DO Emergency Provider Care Physician, No Primary Primary Care Unava ilable Clay Morgan Referring Unavailable Clay Morgan Attending Unavailable Care Physician, No Primary Primary Care Unava ilable Sandro Johnson Attending Unavailable Rona VSCaron Malave Attending Unavailable Caron Cazares Primary Care Unavailable Care Physician, No Primary Primary Care Unava ilable Clay Morgan Referring Unavailable Clay Morgan Attending Unavailable Allergies Allergy Classification Reported Allergen(s) Allergy Type Date of Onset Reaction(s) Facility Penicillins (antibiotic) (2 sources) Penicillins Drug Allergy 1 Nausea And Vomiting [facility] (4 sources) Penicillins; Translations: [Penicillins] Allergy to substance 2 Vomiting [facility] Medications Current Medications Medication Drug Class(es) Dates Sig (Normalized) Sig (Original) Acetaminophen (1 source) Start: 09-06-2020 acetaminophen (TYLENOL) tablet 650 mg amoxicillin 875 mg / clavulanate 125 mg oral tablet (1 source) Penicillin-class Antibacterial Start: 09-08-2020 End: 09-12-2020 take 1 tablet by mouth twice daily amoxicillin-clavul anate (AUGMENTIN) 875-125 MG per tablet Take 1 tablet by mouth 2 times daily for 4 days 8 tablet 0 09/08/2020 09/12/2020 Active aspirin 81 mg chewable tablet (3 sources) Platelet Aggregation Inhibitor, Nonsteroidal Anti-inflammatory Drug Start: 09-09-2020 take 1 tablet by mouth once daily aspirin 81 MG chewable tablet Take 1 tablet by mouth daily 30 tablet 3 09/09/2020 Active Start: 09-07-2020 aspirin chewab le tablet 81 mg atorvastatin 80 mg oral tablet (3 sources) HMG-CoA Reductase Inhibitor Start: 09-08-2020 take 1 tablet by mouth once daily atorvastatin (LIPITOR) 80 MG tablet Take 1 tablet by mouth nightly 30 tablet 3 09/08/2020 Active Start: 09-06-2020 take 80 mg by mouth once daily 80 mg, Oral, NIGHTLY, First dose on [facility]iana 09/06/20 at 2100 0.4 ml enoxaparin sodium 100 mg/ml prefilled syringe (1 source) Low Molecular Weight Heparin Start: 09-07-2020 enoxaparin (LOVENOX) injection 40 mg famotidine 20 mg oral tablet (1 source) Histamine-2 Receptor Antagonist Start: 09-06-2020 take 20 mg by mouth twice daily 20 mg, Oral, 2 TIMES DAILY, First dose on Eliana 09/06/20 at 2100 Gauze Bandages (BANDAGE COTTON ROLL 4.5X4YD) MISC (1 source) Start: 09-13-2020 Gauze Bandages (BANDAGE COTTON ROLL 4.5X4YD) [facility] Indications: Dog bite of left upper extremity, sequela Wrap gauze bandage around wound as needed daily. 1 each 0 09/13/2020 Active [place] (Nk) (1 source) Start: 10-24-2024 [place] (Nk) Active October 24, 2024 12:00am oxyCODONE hydrochloride 5 mg oral tablet (2 sources) Opioid Agonist Start: 09-06-2020 take 2.5 mg by mouth every six hours as needed for pain 2.5 mg, Oral, EVERY 6 HOURS PRN, Pain Moderate (4-6), Starting [facility] 09/06/20 at 1602 Start: 09-06-2020 take 5 mg by mouth e very six hours as needed for pain 5 mg, Oral, EVERY 6 HOURS PRN, Pain Severe (7-10), Starting [facility] 09/06/20 at 1602 perflutren lipid microspheres (DEFINITY) injection 1.65 mg (1 source) Start: 09-06-2020 End: 09-09-2020 1.65 mg (1.5 mL), Intravenous, IMG ONCE PRN, Other, Suboptimal Echo Image, Starting [facility] 09/06/20 at 1602, For 72 hours Administer up to 1.65 mg via slow IVP for suboptimal echocardiogram enhancement.&nb sp;May administer as concentrated dose or diluted in 8.5 mL of 0.9% sodium chloride for a total volume of 10 mL. May administer as divided doses to reach optimal image enhancement. Promethazine (1 source) Phenothiazine Start: 09-06-2020 promethazine (PHENERGAN) tablet 12.5 mg sennosides, fdc 1.76 mg/ml oral solution (1 source) Start: 09-06-2020 take 8.8 mg by mouth twice daily as needed for constipation 8.8 mg (5 mL), Oral, 2 TIMES DAILY PRN, Constipation, Starting [facility] 09/06/20 at 1602 First line therapy for constipation 3 ml sodium chloride 9 mg/ml injection (4 sources) Start: 09-06-2020 take 1 dose intravenously twice daily 5-40 mL, Intravenous, EVERY 12 HOURS SCHEDULED (2 times per day), First dose on Eliana 09/06/20 at 2100 For Line Patency: Peripheral IV = 5 mL; Midline or Central Line = 10 mL/lumen. &nbs p;If following IV push medication, administer flush at same rate as the IV push. Flush volume is determined by type of infusion therapy being given. F or non-viscous solutions use: Periphera l IV = 5 mL Midline or Central Line = 10 mL/lumen &nbsp ;For viscous solutions (i.e. blood components, parenteral nutrition, contrast media, or after obtaining blood sample) use: Periphera l IV = 10 mL Midline or Central Line = 20 mL/lumen Start: 09-06-2020 End: 09-09-2020 5-40 mL, Intravenous, PRN, L ine Care, Per Aligning Inspector Request, Starting [facility] 09/06/20 at 1602, For 72 hours May use order for Line Care after every IV line use and Agitated Saline Bubble Study. Administration for Bubble Study per narrow gauge operator request for only. Remove 1 mL 0.9% sodium chloride from 10 mL syringe for creating agitated saline. If following IV push medication, administer flush at same rate as the IV push. Flush volume is determined by type of infusion therapy being given. For non-viscous solutions use: Peripheral IV = 5 mL Midline or Central Line = 10 mL/lumen For viscous solutions (i.e. blood components, parenteral nutrition, contrast media, or after obtaining blood sample) use: Peripheral IV = 10 mL Midline or Central Line = 20 mL/lumen Start: 09-06-2020 take 25 mL intraveno usly every hour as needed 25 mL, Intravenous, at 100 mL/hr, PRN, If patient receiving piggyback infusions without ordered maintenance IV fluids or with frequent/long duration piggyback infusions, Starting [facility] 09/06/20 at 1602 Administer at the same rate as the piggyback being infused. sodium chloride flush 0.9 % injection 3 mL (1 source) Start: 09-06-2020 sodium chlorid e flush 0.9 % injection 3 mL vancomycin (VANCOCIN) 1,750 mg in dextrose 5 % 500 mL IVPB (1 source) Start: 09-06-2020 vancomycin (VA NCOCIN) 1,750 mg in dextrose 5 % 500 mL IVPB Completed/Discontinued Medications Medication Drug Class(es) Dates Sig (Normalized) Sig (Original) calcium chloride 0.0014 meq/ml / potassium chloride 0.004 meq/ml / sodium chloride 0.103 meq/ml / sodium lactate 0.028 meq/ml injectable solution (1 source) Start: 09-06-2020 End: 09-07-2020 lactated ringers infusion cefTRIAXone sodium 1,000 mg in dextrose 5 % 50 mL IVPB (add-vantage) (2 sources) Start: 09-07-2020 1,000 mg, Intravenous, EVERY 24 HOURS, First dose on Thu09/07/20 at 0900, Until Discontinued Start: 09-06-2020 End: 09-06-2020 cefTRIAXone sodium 1,000 mg in dextrose 5 % 50 mL IVPB (add-vantage) gadobutrol (GADAVIST) injection 9 mL (1 source) Start: 09-06-2020 End: 09-06-2020 gadobutrol (GADAVIST) injection 9 mL 10 ml lidocaine hydrochloride 10 mg/ml injection (1 source) Antiarrhythmic, Amide Local Anesthetic Start: 09-06-2020 End: 09-06-2020 lidocaine PF 1 % injection 30 mL lisinopril 5 mg oral tablet (3 sources) Angiotensin Converting Enzyme Inhibitor Start: 05-16-2021 End: 10-24-2024 take 1 tablet by mouth once daily Lisinopril 5 mg tablet Discontinued 5 mg PO DAILY 30 0 May 16, 2021 1:00am October 24, 2024 6:23pm 100 ml metroNIDAZOLE 5 mg/ml injection (2 sources) Nitroimidazole Antimicrobial Start: 09-06-2020 500 mg, Intravenous, EVERY 8 HOURS, First dose on Thu09/06/20 at 1800, Until Discontinued Start: 09-06-2020 End: 09-06-2020 metronidazole (FLAGYL) 500 m g in NaCl 100 mL IVPB premix Problems Active Problems Problem Classification Problem Date Documented Da te Episodic/Chronic Abdominal pain (7 sources) Abdominal pain; Translations: [Unspecified abdominal pain] 07-25-2021 Episodic Biliary tract disease (5 sources) Biliary calculus; Translations: [Calculus of gallbladder without cholecystitis without obstruction] 09-17-2021 Episodic Coronary atherosclerosis and other heart disease (5 sources) History of acute ST segment elevation myocardial infarction; Translations: [Old myocardial infarction] Onset: 01-14-2016 09-17-2021 Chronic Comment on above: Inferior STEMI 2015 Diabetes mellitus without complication (1 source) Prediabetes; Translations: [Prediabetes] Onset: 09-13-2020 09-13-2020 Episodic Diseases of white blood cells (1 source) Leukocytosis; Translations: [Elevated white blood cell count, unspecified] Chronic E Codes: Natural/environment (2 sources) Dog bite - wound; Translations: [Bitten by dog, subsequent encounter] Episodic Essential hypertension (2 sources) Essential hypertension; Translations: [Essential (primary) hypertension] 08-22-2021 Chronic Open wounds of extremities (7 sources) Dog bite of upper limb; Translations: [Open bite of unspecified upper arm, initial encounter] 09-13-2020 Episodic Other circulatory disease (1 source) Elevated blood pressure; Translations: [Elevated blood-pressure reading, without diagnosis of hypertension] Onset: 09-13-2020 09-13-2020 Episodic Other nutritional; endocrine; and metabolic disorders (2 sources) Obesity; Translations: [Obesity, unspecified] 09-17-2021 Chronic Poisoning by other medications and drugs (2 sources) Overdose of opiate; Translations: [Poisoning by unspecified narcotics, accidental (unintentional), initial encounter] Onset: 10-27-2024 10-24-2024 Episodic Residual codes; unclassified (2 sources) Family history of cancer of colon; Translations: [Family history of malignant neoplasm of digestive organs] 07-25-2021 Episodic Skin and subcutaneous tissue infections (6 sources) Cellulitis of left upper limb; Translations: [Cellulitis of left upper limb] Onset: 09-06-2020 Episodic Past or Other Problems Problem Classification Problem Date Documented Da te Episodic/Chronic Other connective tissue disease (1 source) Pain in right hand; Translations: [Pain in right hand] Onset: 05-27-2024 Episodic Viral infection (3 sources) Disease caused by 2019-nCoV; Translations: [COVID-19] Onset: 05-16-2021 08-22-2021 Episodic Results Test Name Value Interpretation Reference Range Facility CBC W/Diff, Automatedon -3 Absolute Lymph 2.04 X10 3/uL Normal 0.83-4.51 [facility] Comment on above: Performed By: #### L 501.9985, L500.4100, L500.4050, L100.0100, L501.9520 #### [facility] [place], [address] Absolute Neut 6.3 X10 3/uL Normal 2.0-7.7 [facility] Comment on above: Performed By: #### L [id number], L500.4100, L500.4050, L100.0100, [id number] #### [facility] [address] [place], [address] Basophils/100 WBC (Bld) 1.1 % High 0-1 [facility] Comment on above: Performed By: #### L [id number], L500.4100, L500.4050, L100.0100, [id number] #### [facility] [address] [place], [address] Eosinophils/100 WBC (Bld) 2.1 % Normal 0-5 [facility] Comment on above: Performed By: #### L [id number], L500.4100, L500.4050, L100.0100, [id number] #### [facility] [address] [place], [address] Erythrocyte distribution width (RBC) [Ratio] 13.2 % Normal 11.6-14.6 [facility] Comment on above: Performed By: #### L 501.9985, L500.4100, L500.4050, L100.0100, [id number] #### [facility] [address] [place], [address] Hematocrit (Bld) [Volume fraction] 38.1 % Low 40-54 [facility] Comment on above: Performed By: #### L [id number], L500.4100, L500.4050, L100.0100, [id number] #### [facility] [address] [place], [address] Hemoglobin (Bld) [Mass/Vol] 12.5 g/dL Low 13.0-16.5 [facility] Comment on above: Performed By: #### L 501.9985, L500.4100, L500.4050, L100.0100, [id number] #### [facility] [address] [place], [address] IG% 1.100 High 0.0-0.9 [facility] Comment on above: Result Comment: IG% - Immature Granulocytes (promyelocytes, myelocytes and metamyelocytes) > 1% indicates that a LEFT SHIFT is Present. Performed By: #### L 501.9985, L500.4100, L500.4050, L100.0100, [id number] #### [facility] [address] [place], [address] Lymphocytes/100 WBC (Bld) 21.5 % Normal 19-41 [facility] Comment on above: Performed By: #### L 501.9985, L500.4100, L500.4050, L100.0100, [id number] #### [facility] [address] [place], [address] MCH (RBC) [Entitic mass] 27.5 pg Normal 27.0-32.0 [facility] Comment on above: Performed By: #### L 501.9985, L500.4100, L500.4050, L100.0100, [id number] #### [facility] [address] [place], [address] MCHC (RBC) [Mass/Vol] 32.8 g/dL Normal 32-36 [facility] Comment on above: Performed By: #### L 501.9985, L500.4100, L500.4050, L100.0100, [id number] #### [facility] [address] [place], [address] MCV (RBC) [Entitic vol] 83.7 fL Normal 80-94 [facility] Comment on above: Performed By: #### L 501.9985, L500.4100, L500.4050, L100.0100, [id number] #### [facility] [address] [place], [address] Monocytes/100 WBC (Bld) 7.9 % Normal 0-10 [facility] Comment on above: Performed By: #### L 501.9985, L500.4100, L500.4050, L100.0100, [id number] #### [facility] [address] [place], [address] Neutrophils/100 WBC (Bld) 66.3 % Normal 47-70 [facility] Comment on above: Performed By: #### L 501.9985, L500.4100, L500.4050, L100.0100, [id number] #### [facility] [address] [place], [address] Nucleated RBC (Bld) [#/Vol] 0 10*3/uL Normal 0-5 [facility] Comment on above: Performed By: #### L 501.9985, L500.4100, L500.4050, L100.0100, [id number] #### [facility] [address] [place], [address] Platelet mean volume (Bld) [Entitic vol] 11.8 fL Normal 6.2-12.0 [facility] Comment on above: Performed By: #### L 501.9985, L500.4100, L500.4050, L100.0100, [id number] #### [facility] [address] [place], [address] Platelets (Bld) [#/Vol] 525 10*3/uL High 150-450 [facility] Comment on above: Performed By: #### L 501.9985, L500.4100, L500.4050, L100.0100, [id number] #### [facility] [address] [place], [address] RBC (Bld) [#/Vol] 4.55 10*6/uL Low 4.6-6.2 [facility] Comment on above: Performed By: #### L 501.9985, L500.4100, L500.4050, L100.0100, [id number] #### [facility] [address] [place], [address] RDW SD 40.4 fl Normal 35.1-43.9 [facility] Comment on above: Performed By: #### L 501.9985, L500.4100, L500.4050, L100.0100, [id number] #### [facility] [address] [place], [address] WBC (Bld) [#/Vol] 9.5 10*3/uL Normal 4.4-11.0 [facility] Comment on above: Performed By: #### L 501.9985, L500.4100, L500.4050, L100.0100, [id number] #### [facility] [address] [place], [address] Comprehensive Metabolic Prof [facility] 11-24-2024 Albumin [Mass/Vol] 3.6 g/dL Normal 3.4-4.8 [facility] Comment on above: Performed By: #### L 501.9985, L500.4100, L500.4050, L100.0100, [id number] #### [facility] [address] [place], [address] Albumin/Globulin [Mass ratio] 0.9 {ratio} Normal 0.9-2.4 [facility] Comment on above: Performed By: #### L 501.9985, L500.4100, L500.4050, L100.0100, [id number] #### [facility] [address] [place], [address] ALK PHOS 139 U/L High 40-129 [facility] Comment on above: Performed By: #### L 501.9985, L500.4100, L500.4050, L100.0100, [id number] #### [facility] [address] [place], [address] ALT [Catalytic activity/Vol] 74 U/L High <=46 [facility] Comment on above: Performed By: #### L 501.9985, L500.4100, L500.4050, L100.0100, [id number] #### [facility] [address] [place], [address] AST [Catalytic activity/Vol] 64 U/L High <=37 [facility] Comment on above: Performed By: #### L 501.9985, L500.4100, L500.4050, L100.0100, [id number] #### [facility] [address] [place], [address] Bilirubin [Mass/Vol] 0.42 mg/dL Normal 0.00-1.30 [facility] Comment on above: Performed By: #### L 501.9985, L500.4100, L500.4050, L100.0100, [id number] #### [facility] [address] [place], [address] BUN/CRE 20.6 RATIO High 10-20 [facility] Comment on above: Performed By: #### L 501.9985, L500.4100, L500.4050, L100.0100, [id number] #### [facility] [address] [place], [address] Calcium [Mass/Vol] 9.5 mg/dL Normal 7.6-11.0 [facility] Comment on above: Performed By: #### L 501.9985, L500.4100, L500.4050, L100.0100, [id number] #### [facility] [address] [place], [address] Chloride [Moles/Vol] 99 mmol/L Normal 98-108 [facility] Comment on above: Performed By: #### L 501.9985, L500.4100, L500.4050, L100.0100, [id number] #### [facility] [address] [place], [address] CO2 [Moles/Vol] 22.6 mmol/L Normal 21.0-32.0 [facility] Comment on above: Performed By: #### L 501.9985, L500.4100, L500.4050, L100.0100, [id number] #### [facility] [address] [place], [address] Creatinine [Mass/Vol] 1.06 mg/dL Normal 0.70-1.20 [facility] Comment on above: Performed By: #### L 501.9985, L500.4100, L500.4050, L100.0100, [id number] #### [facility] [address] [place], [address] GAP 16 High 5-15 [facility] Comment on above: Performed By: #### L 501.9985, L500.4100, L500.4050, L100.0100, L501.9520 #### [facility] [address] [place], [address] GFR/1.73 sq M.predicted among non-blacks MDRD (S/P/Bld) [Vol rate/Area] 80 mL/min/{1.73_m2} Normal >60 [facility] Comment on above: Result Comment: mL/m in/1.73m2 CKD-EPI Creatinine Equation (2020) Performed By: #### L 501.9985, L500.4100, L500.4050, L100.0100, [id number] #### [facility] [address] [place], [address] Globulin (S) [Mass/Vol] 3.8 g/dL Normal 2.2-4.2 [facility] Comment on above: Performed By: #### L 501.9985, L500.4100, L500.4050, L100.0100, [id number] #### [facility] [address] [place], [address] Glucose [Mass/Vol] 138 mg/dL High 70-99 [facility] Comment on above: Performed By: #### L 501.9985, L500.4100, L500.4050, L100.0100, [id number] #### [facility] [address] [place], [address] Potassium [Moles/Vol] 4.3 mmol/L Normal 3.3-5.1 [facility] Comment on above: Performed By: #### L 501.9985, L500.4100, L500.4050, L100.0100, L501.9520 #### [facility] [address] [place], [address] Sodium [Moles/Vol] 137 mmol/L Normal 133-145 [facility] Comment on above: Performed By: #### L 501.9985, L500.4100, L500.4050, L100.0100, [id number] #### [facility] [address] [place], [address] T PROT 7.4 g/dL Normal 5.9-8.4 [facility] Comment on above: Performed By: #### L 501.9985, L500.4100, L500.4050, L100.0100, [id number] #### [facility] [address] [place], [address] Urea nitrogen [Mass/Vol] 22 mg/dL High 4-19 [facility] Comment on above: Performed By: #### L 501.9985, L500.4100, L500.4050, L100.0100, L501.9520 #### [facility] [address] [place], [address] Hemoglobin A1con 11-24-2024 HbA1c (Bld) [Mass fraction] 6.6 % High <=5.6 [facility] Comment on above: Result Comment: Norm al < 5.7 % Prediabetic 5.7 - 6.4 % Diabetic >or= 6.5 % Please note range changes. Performed By: #### L 501.9985, L500.4100, L500.4050, L100.0100, L501.9520 #### [facility] [address] [place], [address] Lipid Profileon 11-24-2024 CHOL:HDL 6.20 Normal [facility] Comment on above: Performed By: #### L 501.9985, L500.4100, L500.4050, L100.0100, L501.9520 ####[facility] [address] [place], [address] Cholesterol [Mass/Vol] 171 mg/dL Normal <=200 [facility] Comment on above: Result Comment: Chol esterol level, Desirable <200 mg/dL Borderline high cholesterol 200-239 mg/dL High cholesterol >=240 mg/dL Recommendations of the NCEP Adult Treatment Panel for the following risk-cutoff thresholds for the [place] population. Performed By: #### L 501.9985, L500.4100, L500.4050, L100.0100, L501.9520 ####[facility] [address] [place], [address] Cholesterol in HDL [Mass/Vol] 28 mg/dL Low [facility] Comment on above: Result Comment: Allyn onal Cholesterol Education Program (NCEP) guidelines: <40 mg/dL: Low HDL-cholesterol (major risk factor for CHD) >= 60 mg/dL: High HDL-cholesterol (negative risk factor for CHD) HDL-cholesterol is affected by a number of factors, e.g. smoking, exercise, hormones, sex and age. Performed By: #### L 501.9985, L500.4100, L500.4050, L100.0100, L501.9520 ####[facility] [address] [place], [address] Cholesterol in LDL [Mass/Vol] 122 mg/dL Normal [facility] Comment on above: Result Comment: Bord sfpouv=488-205 mg/dL Higher Uzjt=600 mg/dL or greater Friedwald Equation for LDL-C Performed By: #### L 501.9985, L500.4100, L500.4050, L100.0100, L501.9520 ####[facility] [address] [place], [address] Cholesterol in VLDL [Mass/Vol] 22 mg/dL Normal 5-40 [facility] Comment on above: Performed By: #### L 501.9985, L500.4100, L500.4050, L100.0100, L501.9520 ####[facility] [address] [place], [address] Triglyceride [Mass/Vol] 109 mg/dL Normal [facility] Comment on above: Result Comment: The drugs N-Acetylcysteine and Metamizole may falsely depress this assay. Normal range: <150 mg/dL Borderline High: 150-199 mg/dL High: 200-499 mg/dL Very High: >500 mg/dL Performed By: #### L 501.9985, L500.4100, L500.4050, L100.0100, L501.9520 ####[facility] [address] [place], [address] Thyroid Stim Hormone (TSH)on 11-24-2024 TSH 2.950 uIU/mL Normal 0.300-4.200 [facility] Comment on above: Performed By: #### L 501.9985, L500.4100, L500.4050, L100.0100, L501.9520 ####[facility] [address] [place], [address] Absolute lymphocyte countOrd ered By: Sandro Johnson on 10-24-2024 Lymphocytes Auto (Unsp spec) [#/Vol] 0.83 10*3/uL 0.83-4.51 [facility] Absolute neutrophil countOrd ered By: Sandro Johnson on 10-24-2024 Neutrophils (Bld) [#/Vol] 19.0 10*3/uL High 2.0-7.7 [facility] Anion gap in Serum or Plasma Ordered By: Sandro Johnson on 10-24-2024 Anion gap [Moles/Vol] 13 mmol/L 5-15 [facility] Automated lymphocyte count a s percentage of total leukocytesOrdered By: Sandro Johnson on 10-24-2024 Lymphocytes/100 WBC Auto (Unsp spec) 3.9 % Low 19-41 [facility] BUN/creatinine ratioOrdered By: Sandro Johnson on 10-24-2024 Urea nitrogen/Creatinine [Mass ratio] 10.7 mg/mg 10- [facility] Basic Metabolic Profile (BMP )on 10-24-2024 BUN/CRE 10.7 RATIO Normal - [facility] Comment on above: Performed By: #### L 500.2500, L100.0100 #### [facility] [address] [place], [address] Calcium [Mass/Vol] 8.4 mg/dL Normal 7.6-11.0 [facility] Comment on above: Performed By: #### L 500.2500, L100.0100 #### [facility] [address] [place], [address] Chloride [Moles/Vol] 107 mmol/L Normal 98-108 [facility] Comment on above: Performed By: #### L 500.2500, L100.0100 #### [facility] [address] [place], [address] CO2 [Moles/Vol] 18.9 mmol/L Low 21.0-32.0 [facility] Comment on above: Performed By: #### L 500.2500, L100.0100 #### [facility] [address] [place], [address] Creatinine [Mass/Vol] 2.13 mg/dL High 0.70-1.20 [facility] Comment on above: Performed By: #### L 500.2500, L100.0100 #### [facility] [address] [place], [address] ECRCL 40.00 ml/min Low 50-250 [facility] Comment on above: Performed By: #### L 500.2500, L100.0100 #### [facility] [address] [place], [address] GAP 13 Normal 5-15 [facility] Comment on above: Performed By: #### L 500.2500, L100.0100 #### [facility] [address] [place], [address] GFR/1.73 sq M.predicted among non-blacks MDRD (S/P/Bld) [Vol rate/Area] 35 mL/min/{1.73_m2} Low >60 [facility] Comment on above: Result Comment: mL/m in/1.73m2 CKD-EPI Creatinine Equation (2020) Performed By: #### L 500.2500, L100.0100 #### [facility] [address] [place], [address] Glucose [Mass/Vol] 93 mg/dL Normal 70-99 [facility] Comment on above: Performed By: #### L 500.2500, L100.0100 #### [facility] [address] [place], [address] Potassium [Moles/Vol] 5.4 mmol/L High 3.3-5.1 [facility] Comment on above: Result Comment: Hemo lysis present, Results??could be affected. ?? Performed By: #### L 500.2500, L100.0100 #### [facility] [address] [place], [address] Sodium [Moles/Vol] 138 mmol/L Normal 133-145 [facility] Comment on above: Performed By: #### L 500.2500, L100.0100 #### [facility] [address] [place], [address] Urea nitrogen [Mass/Vol] 23 mg/dL High 4-19 [facility] Comment on above: Performed By: #### L 500.2500, L100.0100 #### [facility] [address] [place], [address] Basophil percentageOrdered B y: Sandro Johnson on 10-24-2024 Basophils/100 WBC (Bld) 0.2 % 0-1 [facility] CBC W/Diff, Automatedon 09-27 Absolute Lymph 0.83 X10 3/uL Normal 0.83-4.51 [facility] Comment on above: Performed By: #### L 500.2500, L100.0100 #### [facility] [address] [place], [address] Absolute Neut 19.0 X10 3/uL High 2.0-7.7 [facility] Comment on above: Performed By: #### L 500.2500, L100.0100 #### [facility] [address] [place], [address] Basophils/100 WBC (Bld) 0.2 % Normal 0-1 [facility] Comment on above: Performed By: #### L 500.2500, L100.0100 #### [facility] [address] [place], [address] Eosinophils/100 WBC (Bld) 0.0 % Normal 0-5 [facility] Comment on above: Performed By: #### L 500.2500, L100.0100 #### [facility] [address] [place], [address] Erythrocyte distribution width (RBC) [Ratio] 14.0 % Normal 11.6-14.6 [facility] Comment on above: Performed By: #### L 500.2500, L100.0100 #### [facility] [address] [place], [address] Hematocrit (Bld) [Volume fraction] 45.7 % Normal 40-54 [facility] Comment on above: Performed By: #### L 500.2500, L100.0100 #### [facility] [address] [place], [address] Hemoglobin (Bld) [Mass/Vol] 15.2 g/dL Normal 13.0-16.5 [facility] Comment on above: Performed By: #### L 500.2500, L100.0100 #### [facility] [address] [place], [address] IG% 0.800 Normal 0.0-0.9 [facility] Comment on above: Result Comment: IG% - Immature Granulocytes (promyelocytes, myelocytes and metamyelocytes) > 1% indicates that a LEFT SHIFT is Present. Performed By: #### L 500.2500, L100.0100 #### [facility] [address] [place], [address] Lymphocytes/100 WBC (Bld) 3.9 % Low 19-41 [facility] Comment on above: Performed By: #### L 500.2500, L100.0100 #### [facility] [address] [place], [address] MCH (RBC) [Entitic mass] 29.1 pg Normal 27.0-32.0 [facility] Comment on above: Performed By: #### L 500.2500, L100.0100 #### [facility] [address] [place], [address] MCHC (RBC) [Mass/Vol] 33.3 g/dL Normal 32-36 [facility] Comment on above: Performed By: #### L 500.2500, L100.0100 #### [facility] [address] [place], [address] MCV (RBC) [Entitic vol] 87.5 fL Normal 80-94 [facility] Comment on above: Performed By: #### L 500.2500, L100.0100 #### [facility] [address] [place], [address] Monocytes/100 WBC (Bld) 6.0 % Normal 0-10 [facility] Comment on above: Performed By: #### L 500.2500, L100.0100 #### [facility] [address] [place], [address] Neutrophils/100 WBC (Bld) 89.1 % High 47-70 [facility] Comment on above: Performed By: #### L 500.2500, L100.0100 #### [facility] [address] [place], [address] Nucleated RBC (Bld) [#/Vol] 0 10*3/uL Normal 0-5 [facility] Comment on above: Performed By: #### L 500.2500, L100.0100 #### [facility] [address] [place], [address] Platelet mean volume (Bld) [Entitic vol] 10.9 fL Normal 6.2-12.0 [facility] Comment on above: Performed By: #### L 500.2500, L100.0100 #### [facility] [address] [place], [address] Platelets (Bld) [#/Vol] 295 10*3/uL Normal 150-450 [facility] Comment on above: Performed By: #### L 500.2500, L100.0100 #### [facility] [address] [place], [address] RBC (Bld) [#/Vol] 5.22 10*6/uL Normal 4.6-6.2 [facility] Comment on above: Performed By: #### L 500.2500, L100.0100 #### [facility] [address] [place], [address] RDW SD 45.0 fl High 35.1-43.9 [facility] Comment on above: Performed By: #### L 500.2500, L100.0100 #### [facility] [address] [place], [address] WBC (Bld) [#/Vol] 21.4 10*3/uL High 4.4-11.0 [facility] Comment on above: Performed By: #### L 500.2500, L100.0100 #### [facility] [address] [place], [address] Carbon dioxide, total [Moles /volume] in Central venous bloodOrdered By: Sandro Johnson on 10-24-2024 CO2 [Moles/Vol] 18.9 mmol/L Low 21.0-32.0 [facility] Chloride assayOrdered By: Marco A Johnson on 10-24-2024 Chloride [Moles/Vol] 107 mmol/L 98-108 [facility] Summary on 10-24-2024 Emergency Department Summary [facility] Medical Records Department [address] [place] [address] Emergency Department Summary 10/24/24 MR#: [id number] Acct: [id number] Name: CHILO CARSON Rep #: [id number] : 1965 59 From: Sandro Johnson DO PCP: Care Physician,No Primary Status:DEP ER Location: ED HPI History of Present Illness Chief Complaint: Overdose Informant: patient and EMS Onset/Context/Timing Onset: Today Context: Sudden Onset Timing: Continuous Quality: Weakness Location: Generalized Worsened by: Nothing Relieved by: Nothing Narrative Narrative: Patient presents with altered mental status that occurred today. Patient states he took what he thought was a anti-inflammatory medicine. Patient states that he passed out shortly after this. EMS reports giving the patient Narcan and his mental status improved after that. Patient denies any shortness of breath. Patient denies any nausea or vomiting. Patient denies any chest pain. Patient denies any fevers or chills. Patient is having difficulty staying awake. Patient is able to answer questions but falls asleep easily. PFSH PFSH Medical History Obesity History of ST elevation myocardial infarction (STEMI) (01/14/16) Gallstones Essential hypertension Atherosclerotic heart disease of [place] coronary artery without angina pectoris COVID-19 (05/16/21) Cellulitis of forearm, left Dog bite of left forearm GERD (gastroesophageal reflux disease) Smoker Asthma Home Medications ???Medication ???Instructions ???Recorded ???Last Taken ???Type NK 10/24/24 Unknown History Allergy/AdvReac Type Severity Reaction Status Date / Time Penicillins (PCN) Allergy Vomiting Verified 10/24/24 17:33 Family History Grandmother Diabetes Heart disease Hypertension Uncle Cancer skin Sister Breast cancer Hypertension Mother Hypertension Heart disease Father Heart disease Surgical History History of coronary artery stent placement (03/14/16) Social History Smoking Status: Current some day smoker tobacco type: cigarettes and cigars per week: 7 alcohol intake: never substance use type: does not use ROS ROS ED Constitutional Constitutional ED: Denies chills or fever(s) Eyes Eyes: Denies blurry vision or change in vision ENT ENT ED: Denies rhinorrhea or sore throat Cardiovascular Cardiovascular: Denies chest pain or palpitations Respiratory/Chest Respiratory/Chest: Denies cough or dyspnea Gastrointestinal Gastrointestinal: Denies nausea or vomiting Genitourinary Genitourinary ED: Denies dysuria or hematuria Musculoskeletal Musculoskeletal: Denies back pain or neck pain Integumentary Denies abscess or rash Neurologic Neurologic: Denies headache(s) or weakness Allergic/Immunologic Allergic/Immunologic ED: Denies mouth swelling or urticaria EXAM Physical Exam Const Vital Signs: 10/24/24 17:33 10/24/24 19:33 10/24/24 21:00 Temperature 97.6 F L 97.8 F Temperature Source Oral Oral Pulse Rate 93 96 86 Respiratory Rate 16 19 H 18 Blood Pressure 128/80 H 132/76 H 135/84 H Blood Pressure Mean 96 94 101 Pulse Ox 95 97 94 Oxygen Delivery Method Room Air Room Air 10/24/24 22:17 10/24/24 23:00 Temperature 98.4 F 97.8 F Temperature Source Oral Pulse Rate 83 80 Respiratory Rate 19 H 23 H Blood Pressure 156/78 H 131/87 H Blood Pressure Mean 104 101 Pulse Ox 100 96 Oxygen Delivery Method Room Air Positive well nourished and well developed General Appearance ED: well developed and NAD HEENT Reports moist mucous membranes Eyes PERRL and EOMs intact bilaterally Eyes Narrative: Pupils are 2 mm and reactive. Neck supple and no JVD Resp normal respiratory effort and clear to auscultation bilaterally Cardio regular rate and regular rhythm GI non-tender and non-distended Palpation: soft Neuro oriented x3, CN's II-XII intact bilaterally and no sensory deficits noted Sensorium / Orientation: alert Motor Exam: strength 5/5 throughout Psych mental status grossly normal Skin no rashes or lesions noted MDM MDM MDM Narrative Medical decision making narrative: Differential diagnosis includes opiate overdose, dehydration, and electrolyte abnormality. CBC will be obtained to assess for leukocytosis and anemia. Basic metabolic profile will be obtained to assess for electrolyte abnormality and renal function. History Record Review Additional record(s) reviewed:: Prior ED visit and Prior labs Lab Data Attestation: I reviewed the patient's lab results. Lab results narrative: CBC was re (more content not included)... Normal [facility] Eosinophil percentageOrdered By: Sandro Johnson on 10-24-2024 Eosinophils/100 WBC (Bld) 0.0 % 0-5 [facility] Erythrocyte distribution wid th ratioOrdered By: Sandro Johnson on 10-24-2024 Erythrocyte distribution width (RBC) [Ratio] 14.0 % 11.6-14.6 [facility] Erythrocyte distribution wid th standard deviationOrdered By: Sandro Johnson on 10-24-2024 Erythrocyte distribution width (RBC) [Ratio] 45.0 fl High 35.1-43.9 [facility] Glomerular filtration rate ( GFR) estimation/1.73 sq m using serum, plasma, or whole bOrdered By: Sandro Johnson on 10-24-2024 GFR/1.73 sq M.predicted among non-blacks MDRD (S/P/Bld) [Vol rate/Area] 35 mL/min/{1.73_m2} Low >60 [facility] Comment on above: mL/min/1.73m2 CKD-EP I Creatinine Equation (2020) Hematocrit Auto (Bld) [Volum e fraction]Ordered By: Sandro Johnson on 10-24-2024 Hematocrit (Bld) [Volume fraction] 45.7 % 40-54 [facility] Hemoglobin measurementOrdere d By: Sandro Johnson on 10-24-2024 Hemoglobin (Bld) [Mass/Vol] 15.2 g/dL 13.0-16.5 [facility] Immature granulocytes/100 WB C Auto (Bld)Ordered By: Sandro Johnson on 10-24-2024 Immature granulocytes/100 WBC (Bld) 0.800 % 0.0-0.9 [facility] Comment on above: IG% - Immature Granu locytes (promyelocytes, myelocytes and metamyelocytes) > 1% indicates that a LEFT SHIFT is Present. MCV (mean corpuscular volume ) determinationOrdered By: Sandro Johnson on 10-24-2024 MCV (RBC) [Entitic vol] 87.5 fL 80-94 [facility] Mean corpuscular hemoglobin (MCH) determinationOrdered By: Sandro Johnson on 10-24-2024 MCH (RBC) [Entitic mass] 29.1 pg 27.0-32.0 [facility] Mean corpuscular hemoglobin concentration (MCHC) determinationOrdered By: Sandro Johnson on 10-24-2024 MCHC (RBC) [Mass/Vol] 33.3 g/dL 32-36 [facility] Mean platelet volume determi nationOrdered By: Sandro Johnson on 10-24-2024 Platelet mean volume (Bld) [Entitic vol] 10.9 fL 6.2-12.0 [facility] Monocyte percentageOrdered B y: Sandro Johnson on 10-24-2024 Monocytes/100 WBC (Bld) 6.0 % 0-10 [facility] Neutrophil percentageOrdered By: Sandro Johnson on 10-24-2024 Neutrophils/100 WBC (Bld) 89.1 % High 47-70 [facility] Nucleated red blood cell per centageOrdered By: Sandro Johnson on 10-24-2024 Nucleated RBC/100 WBC (Bld) [Ratio] 0 % 0-5 [facility] Platelet countOrdered By: Marco A Johnson on 10-24-2024 Platelets (Bld) [#/Vol] 295 10*3/uL 150-450 [facility] Potassium measurement (mass/ volume)Ordered By: Sandro Johnson on 10-24-2024 Potassium (Unsp spec) [Mass/Vol] 5.4 mmol/L High 3.3-5.1 [facility] Comment on above: Hemolysis present, R esults could be affected. RBC Auto (Bld) [#/Vol]Ordere d By: Sandro Johnson on 10-24-2024 RBC (Bld) [#/Vol] 5.22 10*6/uL 4.6-6.2 [facility] Serum creatinine measurement (mass/volume)Ordered By: Sandro Johnson on 10-24-2024 Creatinine [Mass/Vol] 2.13 mg/dL High 0.70-1.20 [facility] Serum glucose measurement (m ass/volume)Ordered By: Sadnro Johnson on 10-24-2024 Glucose [Mass/Vol] 93 mg/dL 70-99 [facility] Serum or plasma calcium shruthi urement (mass/volume)Ordered By: Sandro Johnson on 10-24-2024 Calcium [Mass/Vol] 8.4 mg/dL 7.6-11.0 [facility] Serum or plasma urea nitroge n measurement (mass/volume)Ordered By: Sandro Johnson on 10-24-2024 Urea nitrogen [Mass/Vol] 23 mg/dL High 4-19 [facility] Sodium levelOrdered By: Sandro Mcdanielskourtney on 10-24-2024 Sodium [Moles/Vol] 138 mmol/L 133-145 [facility] White blood cell (WBC) count Ordered By: Sandro Mcdanielskourtney on 10-24-2024 WBC (Bld) [#/Vol] 21.4 10*3/uL High 4.4-11.0 [facility] PT D/C Summary (1)on 025 PT D/C Summary (1) [facility] Physical Therapy [facility] [address] [place] [address] / REHABILITATION SERVICES DISCHARGE SUMMARY MR#: [id number] Acct: [id number] Name: CHILO CARSON Rep #: [id number] : 1965 58 From: Madison TAVAREZ Referring Dr.: Dr. Clay Morgan MD Status: REG R Insurance[facility] Discharge Summary D/C summary: It has been my pleasure to treat CHILO CARSON referred by Dr. Clay Morgan MD, with the diagnosis of Lumbar spondylosis for a total of 7 visit(s). Discharge Date: 08/10/24 Please see the following information for a summary of their discharge status. Subjective Subjective: Pt starts having back pain mid day and worse in the evenings. His pain is not as intense. He is back to work and his first day was 17.5 hours and back pain got worse. He reports that he just gets up more often. He has to make a follow up with his Dr. He is doing HEP in evenings and it does help some. Pt reports that he will continue with HEP for now and go back to Dr for reassessment. His HEP does help him so not so stiff in the mornings. Pain back pain: Pain Intensity (Out of 10): 5 B leg pain: Pain Intensity (Out of 10): 0 Overall Improvement % Improvement: 20 Objective Objective/Function: R hip flex 18.1 and L 19.1 R knee ext 20.6 and L 20 R knee flex 13 and L 11 Good B Piriformis and HS length Pt is tighter with LTR on the L compared to the R but will continue to work on this at home. Goals Goal 1:: I HEP Goal Progress: Goal Met Goal 2:: Increase LE strength (at the time of the eval: LE MMT: R hip flex 16.1 and L 16.7 R knee ext 18 and L 15.7 R knee flex 9.9 and L 6.8). Goal Progress: Goal Met Goal 3:: Increase flexibility on the R side (piriformis, HS, LTR) and complete those ROM stretches without pain Goal Progress: Goal Met Goal 4:: Be able to tolerated work duties longer without having to sit and rest Goal Progress: Progressing Plan Plan: DC PT back to . D/C Information Discharge Comments: DC PT to HEP and back to Dr for reassessment d/c sentence: If there are questions or concerns regarding this patient's physical therapy, please feel free to call me at [phone]. Thank you for the referral of this patient. Sincerely, CORBY Snow Balance/Gait/Functiona l tests Balance/Special Test Scores Oswestry Low Back Score: 12 Improvement % Improvement: 20 08/10/24 1125 CC: Dr. Clay Morgan MD; No Primary Care Physician Signed Normal [facility] Inital Evaluation (1) - PTon 07-15-2024 Inital Evaluation (1) - PT [facility] Physical Therapy [address] [place] [address] / REHABILITATION SERVICES INITIAL EVALUATION MR#: [id number] Acct: [id number] Name: CHILO CARSON Rep #: [id number] : 1965 58 From: [place] TAVAREZ Referring Dr.: Dr. Clay Morgan MD Status: REG RCR Insurance: [facility] SELF PAY INSURANCE Patient's Visit Information Visit Information Visit Information: CHILO CARSON is a 58 year old M referred to Physical Therapy by Dr. Clay Morgan MD with a diagnosis of Lumbar spondylosis. Date of Evaluation: 07/15/24 Physical Therapist: CORBY Snow Visit Plan Frequency: 2x /Week Duration: 2 Months Plan: 2x/week for 8 weeks for core stability, B hip stretching *HS, piriformis, LTR, B hip strength, posture exercises with HEP HEP: green strap HS stretch, chair piriformis stretch, LTR Subjective Subjective: Pt has back pain everyday. 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 He has pain towards the end of the day/end of his shift. He has no pain with driving. He has to reposition if he sits too long. He has pain that goes down to B sides of his hips with walking. Getting out of bed is hard with back and neck stiffness. C5 DDD and another one in his neck is ruptured and had nerve blocks. He had x-rays of his lumbar spine and he had severe arthritis and some bone weakness. He has no done any injections in his LB. Dr wants him to do PT first and then they will talk about the next step. Pain back pain: Pain Intensity (Out of 10): 4 B leg pain: Pain Intensity (Out of 10): 0 Objective Objective: LE MMT: R hip flex 16.1 and L 16.7 R knee ext 18 and L 15.7 R knee flex 9.9 and L 6.8 Trunk AROM: Flexion 100, ext 25%, SB B 75 and Rot B 100% Gait: walks with decrease stance time on the R LE Standing heel and toe raises able to walk on heels and toes B Pt had increase pain on the R side with LTR Pt has tight B HS and B Piriformis tightness (R hip tighter) prone lying a little bit of stretch pain MAYNOR: a little bit of pain but no pain when went back into prone. Press up: increase back pain Balance/Special Test Scores Oswestry Low Back Score: 11 Goals Goal 1:: I HEP Goal Time Frame: 6-8 Weeks Goal 2:: Increase LE strength (at the time of the eval: LE MMT: R hip flex 16.1 and L 16.7 R knee ext 18 and L 15.7 R knee flex 9.9 and L 6.8). Goal Time Frame: 6-8 Weeks Goal 3:: Increase flexibility on the R side (piriformis, HS, LTR) and complete those ROM stretches without pain Goal Time Frame: 6-8 Weeks Goal 4:: Be able to tolerated work duties longer without having to sit and rest Goal Time Frame: 6-8 Weeks Rehabilitation Potential Rehabilitation Potential: Good Anticipated Interventions Patient/Client Instruction: Educate patient on: Condition For the Purpose of:: To decrease pain, To increase ROM, To improve muscle performance and motor function, To improve ability to perform ADL's, To increase tolerance to activity/condition/pos ition, To improve performance and independence with ADL's, To decrease level of supervision to perform tasks, To improve gait and locomotor functions, To improve health of tissue, To decrease soft tissue restriction and To increase flexibility/ROM Therapeutic Exercise to Include: Strength training, Postural training, Flexibilty training, Gait and locomotor training, Neuromotor development, Active ROM, Dynamic Lumbar Stabilization and Scapular Strength/Stabilization For the Purpose of:: To decrease pain, To increase ROM, To improve nutrient delivery to tissue, To increase oxygenation perfusion, To improve muscle performance and motor function, To improve ability to perform ADL's, To increase tolerance to activity/condition/pos ition, To improve performance and independence with ADL's, To decrease level of supervision to perform tasks, To improve ability of physical actions for home/community/work/le isure, To improve gait and locomotor functions, To improve health of tissue, To decrease soft tissue restriction, To increase flexibility/ROM and To improve endurance Functional Training to Include: Gait training For the Purpose of:: To improve gait and locomotor functions Cryotherapy (ice pack, ice massage): Yes Thermo therapy (hot pack): Yes For the Purpose of:: To decrease pain, To decrease swelling/inflammation and To increase ROM Text: Thank you for the opportunity to evaluate your patient. For Medicare and Medicare HMO plans, please review the plan of care and approve it. It will need to be FAXED BACK to us at [phone] for Medicare purposes. For Medicare only, by signing this I certify the plan of care. Please let me know if there are questions or concerns regarding this plan of care. Physician Signature: (more content not included)... Normal [facility] Hand Min 3 Viewson 5 Hand Min 3 Views [facility] Imaging Services [address] [place] [address] Hand Min 3 Views MR#: [id number] Acct: [id number] Name: CHILO CARSON Rep #: [id number] : 1965 M 58 From: Sav Osborn MD PCP: Care Physician,No Primary Status: REG CLI Study: Hand Min 3 Views Date of Exam: 05/04/24 Exam# [id number] Ordering Dr: Clay Morgan MD [id number] STUDY: X-RAY - RIGHT HAND REASON FOR EXAM: Male, 58 years old. PAIN TECHNIQUE: 4 views of the right hand. COMPARISON: None. FINDINGS: Normal radiocarpal articulation. Normal distal radioulnar joint. Normal visualized carpal bones. Normal carpal articulations. There is severe degenerative arthrosis of the carpometacarpal (CMC) articulation of the thumb. Normal second through fifth carpometacarpal joints. Normal metacarpi. Normal metacarpophalangeal joint of the thumb. Normal interphalangeal joint of the thumb. Normal proximal and distal phalanges of the thumb. Normal metacarpophalangeal joints of the second through fifth fingers. Normal proximal and distal interphalangeal joints of the second through fifth fingers. Normal phalanges of the second through fifth fingers. The soft tissue structures are unremarkable. 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 Electronically Signed: Sav Osborn MD at 15:15 EST Reading Location ID and State: [facility] [place] , Service support , CC: Dr. Clay Morgan MD; No Primary Care Physician Lsat Instructor: Signed Normal [facility] L/S Spine Min 4 Viewson L/S Spine Min 4 Views [facility] Imaging Services [address] [place], [place] [id number] [phone] L/S Spine Min 4 Views MR#: [id number] Acct: [id number] Name: CHILO CARSON Rep #: [id number] : 1965 M 58 From: Gene Whitney MD PCP: Care Physician,No Primary Status: REG CLI Study: L/S Spine Min 4 Views Date of Exam: 05/04/24 Exam# [id number] Ordering Dr: Clay Morgan MD [id number] STUDY: X-RAY - LUMBAR SPINE REASON FOR EXAM: Male, 58 years old. Pain. TECHNIQUE: 6 view(s) of the lumbar spine were obtained. COMPARISON: None FINDINGS: Accentuated lordosis. Mild levoscoliosis. Minimal alignment of the vertebrae. Diffuse mild lower thoracic and lumbosacral facet sclerosis. Minimal diffuse intervertebral disc space narrowing with osteophytes most marked at L1-2. Vascular calcification. RAD/L/S Spine Min 4 Views IMPRESSION: Osteopenia with mild lower thoracic and lumbosacral spondylosis as described. No acute finding. Electronically Signed: Gene Whitney MD at 15:48 EST Reading Location ID and State: [address] [place] [address] , Service support , CC: Dr. Clay Morgan MD; No Primary Care Physician Lsat Instructor: Signed Normal [facility] Absolute lymphocyte counton 07-19-2021 Lymphocytes Auto (Unsp spec) [#/Vol] 1.62 10*3/uL 0.83-4.51 [facility] Work Phone: Basophil percentageon 2021 Basophil percentage 0 SEEN /hpf [facility] Work Phone: Basophils/100 WBC (Bld) 0.6 % 0-1 [facility] Work Phone: Bilirubin [Mass/Vol] 0.80 mg/dL 0.20-1.00 [facility] Work Phone: Comment on above: For patients on eltr ombopag therapy, use of Dimension Wisner TBIL is not recommended. Chloride [Moles/Vol] 109 mmol/L 98-107 [facility] Work Phone: Eosinophils/100 WBC (Bld) 1.3 % 0-5 [facility] Work Phone: Glucose [Mass/Vol] 119 mg/dL 74-106 [facility] Work Phone: Comment on above: Fasting Glucose resu lt from 100 to 125 mg/dL suggests IMPAIRED HOMEOSTASIS per A.D.A. criteria. Neutrophils (Bld) [#/Vol] 11.2 10*3/uL 2.0-7.7 [facility] Work Phone: Neutrophils/100 WBC (Bld) 80.6 % 47-70 [facility] Work Phone: Potassium [Moles/Vol] 4.2 mmol/L 3.5-5.1 [facility] Work Phone: Protein [Mass/Vol] 7.9 g/dL 6.4-8.2 [facility] Work Phone: Sodium [Moles/Vol] 138 mmol/L 136-145 [facility] Work Phone: WBC (Bld) [#/Vol] 13.9 10*3/uL 4.4-11.0 [facility] Work Phone: Bilirubin Test strip Ql (U)o n 07-19-2021 Bilirubin Ql (U) Negative Negative [facility] Work Phone: Blood erythrocytes count (nu mber/volume)on 07-19-2021 RBC (Bld) [#/Vol] 5.10 10*6/uL 4.6-6.2 [facility] Work Phone: Blood hemoglobin measurement (mass/volume)on 07-19-2021 Hemoglobin (Bld) [Mass/Vol] 15.0 g/dL 13.0-16.5 [facility] Work Phone: Blood lymphocytes/100 leukoc yteson 07-19-2021 Lymphocytes/100 WBC (Bld) 11.7 % 19-41 [facility] Work Phone: Blood monocytes/100 leukocyt eson 07-19-2021 Monocytes/100 WBC (Bld) 5.2 % 0-10 [facility] Work Phone: Blood platelet mean volumeon 07-19-2021 Platelet mean volume (Bld) [Entitic vol] 11.1 fL 6.2-12.0 [facility] Work Phone: Determination of erythrocyte mean corpuscular volume (MCV)on 07-19-2021 MCV (RBC) [Entitic vol] 86.9 fL 80-94 [facility] Work Phone: Direct bilirubinon 2 Bilirubin.direct [Mass/Vol] 0.11 mg/dL 0.00-0.30 [facility] Work Phone: Hematocrit Auto (Bld) [Volum e fraction]on 07-19-2021 Hematocrit (Bld) [Volume fraction] 44.3 % 40-54 [facility] Work Phone: Ketones Test strip Ql (U)on 07-19-2021 Ketones Ql (U) Negative Negative [facility] Work Phone: Laboratory - Chemistry and C hemistry - challengeon 07-19-2021 ALP [Catalytic activity/Vol] 146 U/L 45-117 [facility] Work Phone: ALT [Catalytic activity/Vol] 39 U/L 16-61 [facility] Work Phone: CO2 [Moles/Vol] 26.0 mmol/L 21.0-32.0 [facility] Work Phone: Globulin (S) [Mass/Vol] 4.0 g/dL 2.2-4.2 [facility] Work Phone: Lipase [Catalytic activity/Vol] 100 U/L 73-393 [facility] Work Phone: Urea nitrogen/Creatinine [Mass ratio] 13.2 mg/mg 10-20 [facility] Work Phone: Laboratory - Hematology and Cell countson 07-19-2021 Erythrocyte distribution width (RBC) [Entitic vol] 45.4 fL 35.1-43.9 [facility] Work Phone: Erythrocyte distribution width (RBC) [Ratio] 14.2 % 11.6-14.6 [facility] Work Phone: Immature granulocytes/100 WBC (Bld) 0.600 % 0.0-0.9 [facility] Work Phone: Comment on above: IG% - Immature Granu locytes (promyelocytes, myelocytes and metamyelocytes) > 1% indicates that a LEFT SHIFT is Present. MCH (RBC) [Entitic mass] 29.4 pg 27.0-32.0 [facility] Work Phone: Nucleated RBC/100 WBC (Bld) [Ratio] 0 % 0-5 [facility] Work Phone: MCHC Auto (RBC) [Mass/Vol]on 07-19-2021 MCHC (RBC) [Mass/Vol] 33.9 g/dL 32-36 [facility] Work Phone: Mucus LM Ql (Urine sed)on Mucus Ql (Urine sed) 0 SEEN /hpf [facility] Work Phone: Nitrite Test strip Ql (U)on 07-19-2021 Nitrite Ql (U) Negative Negative [facility] Work Phone: No Panel Informationon 07-19 Estimated Creatinine Clearance Calc 67.65 ml/min [facility] Work Phone: Estimated GFR (MDRD) Amer 85 mL/min >60 [facility] Work Phone: Comment on above: GFR Calc Estimated GFR (MDRD) Non-Af Amer 70 mL/min >60 [facility] Work Phone: Comment on above: Non- GFR Calc Platelets bldon 07-19-2021 Platelets (Bld) [#/Vol] 336 10*3/uL 150-450 [facility] Work Phone: Protein Test strip Ql (U)on 07-19-2021 Protein Ql (U) Negative Negative [facility] Work Phone: Serum or plasma albumin shruthi urement (mass/volume)on 07-19-2021 Albumin [Mass/Vol] 3.9 g/dL 3.2-5.0 [facility] Work Phone: Serum or plasma calcium shruthi urement (mass/volume)on 07-19-2021 Calcium [Mass/Vol] 9.1 mg/dL 8.5-10.1 [facility] Work Phone: Serum or plasma creatinine m easurement (mass/volume)on 07-19-2021 Creatinine [Mass/Vol] 1.14 mg/dL 0.70-1.30 [facility] Work Phone: Comment on above: The validity of the calculated GFR & GFRAA in patients over 70 years has not been determined. Clinical correlation is essential. Serum or plasma urea nitroge n measurement (mass/volume)on 07-19-2021 Urea nitrogen [Mass/Vol] 15 mg/dL 7-18 [facility] Work Phone: Squamous epithelial cells de tection in urine sediment by light microscopyon 07-19-2021 Epithelial cells.squamous LM Ql (Urine sed) 0 SEEN /hpf [facility] Work Phone: Thin prep Papanicolaou smear with manual screeningon 07-19-2021 Thin prep Papanicolaou smear with manual screening 31 U/L 15-37 [facility] Work Phone: Thin prep Papanicolaou smear with manual screening 3 5-15 [facility] Work Phone: Urine blood detectionon 06-26 RBC Ql (U) Negative Negative [facility] Work Phone: RBC Ql (U) 0 SEEN /hpf [facility] Work Phone: Urine clarityon 07-19-2021 Clarity (U) Clear Clear [facility] Work Phone: Urine color determinationon 07-19-2021 Color (U) Yellow Yellow [facility] Work Phone: Urine glucose detectionon Glucose Ql (U) Normal mg/dl Normal [facility] Work Phone: Urine leukocyte esterase det ection by dipstickon 07-19-2021 Leukocyte esterase Test strip Ql (U) Negative Negative [facility] Work Phone: Urine pHon 07-19-2021 pH (U) 8.0 [pH] [facility] Work Phone: Urine sediment bacteria coun t by microscopy (number/high power field)on 07-19-2021 Bacteria LM.HPF (Urine sed) [#/Area] 2 /[HPF] None Seen [facility] Work Phone: Urine specific gravity measu rementon 07-19-2021 Specific gravity (U) [Rel density] 1.015 [facility] Work Phone: Urobilinogen Auto test strip Ql (U)on 07-19-2021 Urobilinogen Ql (U) Normal mg/dl Normal [facility] Work Phone: No Panel Informationon 05-16 Influenza Types A,B Direct FA (RAGHAV) [facility] Work Phone: HIV 1,2 Ab; p24 Agon 021 HIV 1,2 Ab; p24 Ag Non-Reactive Normal Nonreactive [facility] Comment on above: Result Comment: Results obtained using the FDA cleared 4th generation HIV test. This test detects antibodies to HIV1, HIV2, HIV Group O, and the presence of the HIV-1 p24 antigen. A Non-Reactive re- sult indicates the patient is negative for both HIV antibody and HIV p24 antigen. All reactive results will undergo reflex confirmation testing at an additional charge. Performed By: #### H IV4, HEPC #### [facility] [address] [place] [phone] HIV ScreenOrdered By: Max Lerma on 09-13-2020 HIV 1+2 [id number] AG, EIA Non-Reactive Nonreactive NA [facility] Work Phone: Comment on above: Results obtained using the FDA cleared 4th generation HIV test. This test detects antibodies to HIV1, HIV2, HIV Group O, and the presence of the HIV-1 p24 antigen. A Non-Reactive re- sult indicates the patient is negative for both HIV antibody and HIV p24 antigen. All reactive results will undergo reflex confirmation testing at an additional charge. Hep C Antibodyon 09-13-2020 Hep C Antibody Not detected Normal Not-Detected [facility] Comment on above: Result Comment: Patients with DETECTED Hepatitis C Ab results should have a new specimen submitted for supplemental testing with a Hepatitis C Quantitative RNA assay (viral load), if clinically indicated. Performed By: #### H IV4, HEPC #### [facility] [address] [place] [phone] Hepatitis C AntibodyOrdered By: Max Lerma on 09-13-2020 Hepatitis C Ab Not detected Not-Detected [facility] Work Phone: Comment on above: Patients with DETECTED Hepatitis C Ab results should have a new specimen submitted for supplemental testing with a Hepatitis C Quantitative RNA assay (viral load), if clinically indicated. No Panel InformationOrdered By: Max Lerma on 09-13-2020 Test Performed by [facility], [address] [place] [id number] [facility] Work Phone: [facility] Work Phone: CULT/STAIN - AEROBIC AND SOFY EROBICon 09-11-2020 CULT/STAIN - AEROBIC AND ANAEROBIC CULT./ST. BACTERIA --> Status: F No growth at 3 days. 1 Organism Propionibacterium acnes Few Normal [facility] Comment on above: Performed By: #### H EMDF, MG3, PHOS3, CMP3M #### [facility] [address] [place], [place] CULTURE BLOODon 09-11-2020 Microscopic examination of blood, culture CULTURE BLOOD --> Status: F No growth at 5 days. Normal [facility] Comment on above: Performed By: #### H EMDF, MG3, PHOS3, CMP3M #### [facility] [address], [place] CULTURE BLOOD (Two)on 2020 Microscopic examination of blood, culture CULTURE BLOOD (Two) --> Status: F No growth at 5 days. Normal [facility] Comment on above: Performed By: #### H EMDF, MG3, PHOS3, CMP3M #### [facility] [address], [place] CBC auto differentialOrdered By: Leonardo De La Cruz on 09-08-2020 Absolute Baso # 0.1 10*3/uL 0.0 - 0.2 10*3/uL [facility] Work Phone: [phone] Absolute Neut # 6.6 10*3/uL 1.8 - 7.0 10*3/uL [facility] Work Phone: [phone] Basophils/100 WBC (Bld) 0.8 % 0.0 - 2.0 % [facility] Work Phone: [phone] Eosinophils (Bld) [#/Vol] 0.4 10*3/uL 0.0 - 0.5 10*3/uL [facility] Work Phone: [phone] Eosinophils/100 WBC (Bld) 4.2 % 1.0 - 6.0 % [facility] Work Phone: [phone] Granulocytes/100 WBC (Bld) 62.4 % 40.0 - 80.0 % [facility] Work Phone: [phone] Hematocrit (Bld) [Volume fraction] 38.0 % Low 40.0 - 52.0 % [facility] Work Phone: [phone] Hemoglobin.gastrointest inal spec 1 Ql (Stl) 12.8 g/dL Low 13.0 - 18.0 g/dL [facility] Work Phone: [phone] Interpretation and review of laboratory results Abnormal [facility] Work Phone: [phone] Lymphocytes (Bld) [#/Vol] 2.5 10*3/uL 1.0 - 4.3 10*3/uL [facility] Work Phone: [phone] Lymphocytes/100 WBC (Bld) 23.8 % 20.0 - 40.0 % [facility] Work Phone: [phone] MCH (RBC) [Entitic mass] 29.6 pg 26.0 - 34.0 pg [facility] Work Phone: [phone] MCHC (RBC) [Mass/Vol] 33.7 % 32.0 - 36.0 % [facility] Phone: [phone] MCV (RBC) [Entitic vol] 88.0 fL 80.0 - 98.0 fL [facility] Phone: [phone] Monocytes (Bld) [#/Vol] 0.9 10*3/uL High 0.0 - 0.8 10*3/uL [facility] Work Phone: [phone] Monocytes/100 WBC (Bld) 8.8 % 2.0 - 10.0 % [facility] Phone: [phone] Platelet distribution width (Bld) [Ratio] 13.7 % 11.5 - 14.5 % [facility] Phone: [phone] Platelet mean volume (Bld) [Entitic vol] 9.7 fL 7.4 - 10.4 fL [facility] Phone: [phone] Platelets (Bld) [#/Vol] 283 10*3/uL 140 - 440 10*3/uL [facility] Work Phone: [phone] RBC (Bld) [#/Vol] 4.32 10*6/uL Low 4.40 - 5.9 0 10*6/uL [facility] Work Phone: [phone] WBC (Bld) [#/Vol] 10.6 10*3/uL 3.6 - 10.7 10*3/uL [facility] Work Phone: [phone] Test Performed by [id number] [place] [address] Work Phone: [facility] Work Phone: Comp Panel with Mg Reflexon 09-08-2020 Calcium [Mass/Vol] 8.6 mg/dL Normal 8.4-10.4 [facility] Comment on above: Performed By: #### H EMDF, MG3, PHOS3, CMP3M #### [facility] [address] [place] [address] ALP [Catalytic activity/Vol] 105 U/L Normal 38-126 [facility] Comment on above: Performed By: #### H EMDF, MG3, PHOS3, CMP3M #### [facility] [address], [place] ALT [Catalytic activity/Vol] 36 U/L Normal 0-49 [facility] Comment on above: Result Comment: The ALT test is performed by an updated assay method. Please note that the reference intervals have been changed and are now sex specific. Performed By: #### H EMDF, MG3, PHOS3, CMP3M #### [facility] [address] [place], [place] Anion gap [Moles/Vol] 8 mmol/L Normal 3-13 [facility] Comment on above: Performed By: #### H EMDF, MG3, PHOS3, CMP3M #### [facility] [address], [place] AST [Catalytic activity/Vol] 41 U/L Normal 15-46 [facility] Comment on above: Performed By: #### H EMDF, MG3, PHOS3, CMP3M #### [facility] [address] [place], [place] Bilirubin [Mass/Vol] 0.6 mg/dL Normal 0.2-1.3 [facility] Comment on above: Performed By: #### H EMDF, MG3, PHOS3, CMP3M #### [facility] [address], [place] CO2 [Moles/Vol] 22 mmol/L Normal 22-30 [facility] Comment on above: Performed By: #### H EMDF, MG3, PHOS3, CMP3M #### [place] [address] [place], [place] Creatinine [Mass/Vol] 0.94 mg/dL Normal 0.52-1.25 [facility] Comment on above: Performed By: #### H EMDF, MG3, PHOS3, CMP3M #### [place] [address] [place], [place] eGFR OTHER > 90.0 Normal >60 [facility] Comment on above: Result Comment: KDIG O guidelines provide the following GFR categories: Stage GFR(ml/min/1.73 m2) Terms G1 >=90 Normal or high G2 60-89 Mildly decreased* G3a 45-59 Mildly to moderately decreased G3b 30-44 Moderately to severely decreased G4 15-29 Severely decreased G5 <15 Kidney failure *Relative to young adult level. In the absence of evidence of kidney damage, neither GFR category G1 nor G2 fulfill the criteria for CKD. The CKD-EPI equation is validated in individuals 18 years of age and older. Currently the best equation for estimating glomerular filtration rate (GFR) from serum creatinine in children is the Bedside Vann equation. It is less accurate in patients with extremes of muscle mass, restriction of dietary protein, ingestion of creatine, extra-renal metabolism of creatinine, or treatment with medications that affect renal tubular creatinine secretion. Performed By: #### H EMDF, MG3, PHOS3, CMP3M #### [place] [address] [place], [place] GFR/1.73 sq M.predicted among blacks MDRD (S/P/Bld) [Vol rate/Area] mL/min/{1.73_m2} Normal >60 [facility] Comment on above: Performed By: #### H EMDF, MG3, PHOS3, CMP3M #### [address] Glucose [Mass/Vol] 82 mg/dL Normal 70-100 [facility] Comment on above: Performed By: #### H EMDF, MG3, PHOS3, CMP3M #### [address] Protein [Mass/Vol] 6.7 g/dL Normal 6.3-8.2 [facility] Comment on above: Performed By: #### H EMDF, MG3, PHOS3, CMP3M #### [place] [address] [address] [place], [place] Urea nitrogen [Mass/Vol] 14 mg/dL Normal 7-20 [facility] Comment on above: Performed By: #### H EMDF, MG3, PHOS3, CMP3M #### [place] [address] [address] [place], [place] Potassium [Moles/Vol] 4.3 mmol/L Normal 3.5-5.1 [facility] Comment on above: Performed By: #### H EMDF, MG3, PHOS3, CMP3M #### [place] [address] [address] [place] Albumin [Mass/Vol] 3.6 g/dL Normal 3.5-5.0 [facility] Comment on above: Performed By: #### H EMDF, MG3, PHOS3, CMP3M #### [place] [address] [place] Chloride [Moles/Vol] 107 mmol/L Normal 98-107 [facility] Comment on above: Performed By: #### H EMDF, MG3, PHOS3, CMP3M #### [place] [address] [place], [place] Sodium [Moles/Vol] 137 mmol/L Normal 135-145 [facility] Comment on above: Performed By: #### H EMDF, MG3, PHOS3, CMP3M #### [place] [address] [place], [place] Comprehensive Metabolic Pane l w/ Reflex to MGOrdered By: Leonardo De La Cruz on 09-08-2020 Albumin [Mass/Vol] 3.6 g/dL 3.5 - 5.0 g/dL [facility] Work Phone: ALP (Bld) [Catalytic activity/Vol] 105 U/L 38 - 126 U/L [facility] Work Phone: ALT [Catalytic activity/Vol] 36 U/L 0 - 49 U/L [facility] Work Phone: Comment on above: The ALT test is perf ormed by an updated assay method. Please note that the reference intervals have been changed and are now sex specific. Anion gap [Moles/Vol] 8 mmol/L 3 - 13 mmol/L [facility] Work Phone: AST [Catalytic activity/Vol] 41 U/L 15 - 46 U/L [facility] Work Phone: Bilirubin [Mass/Vol] 0.6 mg/dL 0.2 - 1 .3 mg/dL [facility] Work Phone: Calcium [Mass/Vol] 8.6 mg/dL 8.4 - 10. 4 mg/dL [facility] Work Phone: Chloride [Moles/Vol] 107 mmol/L 98 - 10 7 mmol/L [facility] Work Phone: CO2 [Moles/Vol] 22 mmol/L 22 - 30 mmol/L [facility] Work Phone: Creatinine [Mass/Vol] 0.94 mg/dL 0.52 - 1.25 mg/dL [facility] Work Phone: [phone] EGFR IF NonAfrican Jordanian >90.0 >60 mL/min [facility] Work Phone: Comment on above: KDIGO guidelines pro vide the following GFR categories: Stage GFR(ml/min/1.73 m2) Terms G1 >=90 Normal or high G2 60-89 Mildly decreased* G3a 45-59 Mildly to moderately decreased G3b 30-44 Moderately to severely decreased G4 15-29 Severely decreased G5 <15 Kidney failure *Relative to young adult level. In the absence of evidence of kidney damage, neither GFR category G1 nor G2 fulfill the criteria for CKD. The CKD-EPI equation is validated in individuals 18 years of age and older. Currently the best equation for estimating glomerular filtration rate (GFR) from serum creatinine in children is the Bedside Vann equation. It is less accurate in patients with extremes of muscle mass, restriction of dietary protein, ingestion of creatine, extra-renal metabolism of creatinine, or treatment with medications that affect renal tubular creatinine secretion. Free PSA/Total PSA [Mass fraction] 6.7 g/dL 6.3 - 8.2 g/dL [facility] Work Phone: GFR/1.73 sq M.predicted among blacks MDRD (S/P/Bld) [Vol rate/Area] mL/min/{1.73_m2} >60 mL/min [facility] Work Phone: Glucose [Mass/Vol] 82 mg/dL 70 - 100 mg/dL [facility] Work Phone: Potassium [Moles/Vol] 4.3 mmol/L 3.5 - 5.1 mmol/L [facility] Work Phone: Sodium [Moles/Vol] 137 mmol/L 135 - 145 mmol/L [facility] Work Phone: Urea nitrogen (BldV) [Mass/Vol] 14 mg/dL 7 - 20 mg/dL [facility] Work Phone: Hemogram w/ Autodiffon 09-08 Abs Baso Cnt 0.1 10*3/uL Normal 0.0-0.2 [facility] Comment on above: Performed By: #### H EMDF, MG3, PHOS3, CMP3M #### [facility] [employer] [address] Abs Neutrophile Cnt 6.6 10*3/uL Normal 1.8-7.0 [facility] Comment on above: Performed By: #### H EMDF, MG3, PHOS3, CMP3M #### [address] Basophils/100 WBC (Bld) 0.8 % Normal 0.0-2.0 [facility] Comment on above: Performed By: #### H EMDF, MG3, PHOS3, CMP3M #### [address] Eosinophils (Bld) [#/Vol] 0.4 10*3/uL Normal 0.0-0.5 [facility] Comment on above: Performed By: #### H EMDF, MG3, PHOS3, CMP3M #### [place] [address] [address] [place] Eosinophils/100 WBC (Bld) 4.2 % Normal 1.0-6.0 [facility] Comment on above: Performed By: #### H EMDF, MG3, PHOS3, CMP3M #### [place] [address] [place], [place] Erythrocyte distribution width (RBC) [Ratio] 13.7 % Normal 11.5-14.5 [facility] Comment on above: Performed By: #### H EMDF, MG3, PHOS3, CMP3M #### [place] [address] [place], [place] Granulocytes/100 WBC (Bld) 62.4 % Normal 40.0-80.0 [facility] Comment on above: Performed By: #### H EMDF, MG3, PHOS3, CMP3M #### [place] [address] [place], [place] Hematocrit (Bld) [Volume fraction] 38.0 % Low 40.0-52.0 [facility] Comment on above: Performed By: #### H EMDF, MG3, PHOS3, CMP3M #### [place] [address] [place], [place] Hemoglobin (Bld) [Mass/Vol] 12.8 g/dL Low 13.0-18.0 [facility] Comment on above: Performed By: #### H EMDF, MG3, PHOS3, CMP3M #### [place] [address] [place], [place] Lymphocytes (Bld) [#/Vol] 2.5 10*3/uL Normal 1.0-4.3 [facility] Comment on above: Performed By: #### H EMDF, MG3, PHOS3, CMP3M #### [address] Lymphocytes/100 WBC (Bld) 23.8 % Normal 20.0-40.0 [facility] Comment on above: Performed By: #### H EMDF, MG3, PHOS3, CMP3M #### [address] [address] [address] [place], [place] MCH (RBC) [Entitic mass] 29.6 pg Normal 26.0-34.0 [facility] Comment on above: Performed By: #### H EMDF, MG3, PHOS3, CMP3M #### [address] [address] [place], [place] MCHC 33.7 % Normal 32.0-36.0 [facility] Comment on above: Performed By: #### H EMDF, MG3, PHOS3, CMP3M #### [address] MCV (RBC) [Entitic vol] 88.0 fL Normal 80.0-98.0 [facility] Comment on above: Performed By: #### H EMDF, MG3, PHOS3, CMP3M #### [address] Monocytes (Bld) [#/Vol] 0.9 10*3/uL High 0.0-0.8 [facility] Comment on above: Performed By: #### H EMDF, MG3, PHOS3, CMP3M #### [address] Monocytes/100 WBC (Bld) 8.8 % Normal 2.0-10.0 [facility] Comment on above: Performed By: #### H EMDF, MG3, PHOS3, CMP3M #### [address] [address] [place], [place] Platelet mean volume (Bld) [Entitic vol] 9.7 fL Normal 7.4-10.4 [facility] Comment on above: Performed By: #### H EMDF, MG3, PHOS3, CMP3M #### [address] Platelets (Bld) [#/Vol] 283 10*3/uL Normal 140-440 [facility] Comment on above: Performed By: #### H EMDF, MG3, PHOS3, CMP3M #### [address] RBC (Bld) [#/Vol] 4.32 10*6/uL Low 4.40-5.90 [facility] Comment on above: Performed By: #### H EMDF, MG3, PHOS3, CMP3M #### [address] WBC (Bld) [#/Vol] 10.6 10*3/uL Normal 3.6-10.7 [facility] Comment on above: Performed By: #### H EMDF, MG3, PHOS3, CMP3M #### [address] Magnesiumon 09-08-2020 Magnesium [Mass/Vol] 2.3 mg/dL Normal 1.6-2.3 [facility] Comment on above: Performed By: #### H EMDF, MG3, PHOS3, CMP3M #### [address] MagnesiumOrdered By: Leonardo De La Cruz on 09-08-2020 Magnesium [Mass/Vol] 2.3 mg/dL 1.6 - 2 .3 mg/dL [facility] Work Phone: No Panel InformationOrdered By: Leonardo De La Cruz on 09-08-2020 Test Performed by [facility], [address] [place] [id number] [place] [address] Work Phone: [facility] Work Phone: Phosphoruson 09-08-2020 Phosphate [Mass/Vol] 4.3 mg/dL Normal 2.5-4.5 [facility] Comment on above: Performed By: #### H EMDF, MG3, PHOS3, CMP3M #### [address] PhosphorusOrdered By: Humphrey De La Cruz on 09-08-2020 Phosphate [Mass/Vol] 4.3 mg/dL 2.5 - 4 .5 mg/dL [facility] Work Phone: Vancomycin Troughon 09-09-19 Vancomycin Trough 11.6 ug/mL Low 15.0-20.0 [facility] Comment on above: Result Comment: . Performed By: #### H EMDF, MG3, PHOS3, CMP3M #### [facility] [address] [place] [address] Vancomycin, TroughOrdered By : Chilo Burton on 09-08-2020 Interpretation and review of laboratory results Abnormal [facility] Work Phone: 1) Vancomycin Tr 11.6 ug/mL Low 15.0 - 20.0 ug/mL [employer] Work Phone: 1 Comment on above: . Test Performed by [facility], [address] [place] [address] [facility] Work Phone: 1 [employer] Work Phone: 1 CBC auto differentialOrdered By: Leonardo De La Cruz on 09-07-2020 Absolute Baso # 0.1 10*3/uL 0.0 - 0.2 10*3/uL [facility] Work Phone: 1) Absolute Neut # 9.7 10*3/uL High 1.8 - 7.0 10*3/uL [facility] Work Phone: [phone]) 222 Basophils/100 WBC (Bld) 0.5 % 0.0 - 2.0 % [facility] Work Phone: [phone] Eosinophils (Bld) [#/Vol] 0.3 10*3/uL 0.0 - 0.5 10*3/uL [facility] Work Phone: 1) 222 Eosinophils/100 WBC (Bld) 2.4 % 1.0 - 6.0 % [facility] Work Phone: 1) 222 Granulocytes/100 WBC (Bld) 71.1 % 40.0 - 80.0 % [employer] Work Phone: [phone]) 222 Hematocrit (Bld) [Volume fraction] 37.8 % Low 40.0 - 52.0 % [employer] Work Phone: 1) Hemoglobin.gastrointest inal spec 1 Ql (Stl) 12.6 g/dL Low 13.0 - 18.0 g/dL [employer] Work Phone: [phone] Interpretation and review of laboratory results Abnormal [employer] Work Phone: [phone] Lymphocytes (Bld) [#/Vol] 2.2 10*3/uL 1.0 - 4.3 10*3/uL [employer] Work Phone: [phone] Lymphocytes/100 WBC (Bld) 16.0 % Low 20.0 - 40.0 % [employer] Work Phone: [phone] MCH (RBC) [Entitic mass] 29.0 pg 26.0 - 34.0 pg [employer] Work Phone: [phone] MCHC (RBC) [Mass/Vol] 33.3 % 32.0 - 36.0 % [facility] Phone: [phone] MCV (RBC) [Entitic vol] 86.9 fL 80.0 - 98.0 fL [facility] Phone: [phone] Monocytes (Bld) [#/Vol] 1.4 10*3/uL High 0.0 - 0.8 10*3/uL [employer] Work Phone: [phone] Monocytes/100 WBC (Bld) 10.0 % 2.0 - 10.0 % [facility] Phone: [phone] Platelet distribution width (Bld) [Ratio] 13.4 % 11.5 - 14.5 % [facility] Phone: [phone] Platelet mean volume (Bld) [Entitic vol] 9.6 fL 7.4 - 10.4 fL [employer] Work Phone: [phone] Platelets (Bld) [#/Vol] 253 10*3/uL 140 - 440 10*3/uL [employer] Work Phone: [phone] RBC (Bld) [#/Vol] 4.34 10*6/uL Low 4.40 - 5.9 0 10*6/uL [employer] Work Phone: [phone] WBC (Bld) [#/Vol] 13.6 10*3/uL High 3.6 - 10.7 10*3/uL [employer] Work Phone: [phone] Test Performed by [facility], [address] [place] [address] [facility] Work Phone: [facility] Work Phone: Comp Panel with Mg Reflexon 09-07-2020 ALT [Catalytic activity/Vol] 37 U/L Normal 0-49 [facility] Comment on above: Result Comment: The ALT test is performed by an updated assay method. Please note that the reference intervals have been changed and are now sex specific. Performed By: #### H EMDF, MG3, PHOS3, CMP3M #### [address] [place] [address] Calcium [Mass/Vol] 8.5 mg/dL Normal 8.4-10.4 [facility] Comment on above: Performed By: #### H EMDF, MG3, PHOS3, CMP3M #### [address] [address] [place] [address] Glucose [Mass/Vol] 87 mg/dL Normal 70-100 [facility] Comment on above: Performed By: #### H EMDF, MG3, PHOS3, CMP3M #### [address] [place] [address] Urea nitrogen [Mass/Vol] 14 mg/dL Normal 7-20 [facility] Comment on above: Performed By: #### H EMDF, MG3, PHOS3, CMP3M #### [address] [address] [place] [address] ALP [Catalytic activity/Vol] 95 U/L Normal 38-126 [facility] Comment on above: Performed By: #### H EMDF, MG3, PHOS3, CMP3M #### [address] [address] [place] [address] Anion gap [Moles/Vol] 8 mmol/L Normal 3-13 [facility] Comment on above: Performed By: #### H EMDF, MG3, PHOS3, CMP3M #### [address] [place] [address] AST [Catalytic activity/Vol] 35 U/L Normal 15-46 [facility] Comment on above: Performed By: #### H EMDF, MG3, PHOS3, CMP3M #### [address] [address] [place] [place] Bilirubin [Mass/Vol] 1.0 mg/dL Normal 0.2-1.3 [facility] Comment on above: Performed By: #### H EMDF, MG3, PHOS3, CMP3M #### [address] [address] [address] [place] CO2 [Moles/Vol] 24 mmol/L Normal 22-30 [facility] Comment on above: Performed By: #### H EMDF, MG3, PHOS3, CMP3M #### [address] [address] [place], [place] Creatinine [Mass/Vol] 1.02 mg/dL Normal 0.52-1.25 [facility] Comment on above: Performed By: #### H EMDF, MG3, PHOS3, CMP3M #### [address] [address] [place], [place] GFR/1.73 sq M.predicted among blacks MDRD (S/P/Bld) [Vol rate/Area] mL/min/{1.73_m2} Normal >60 [facility] Comment on above: Performed By: #### H EMDF, MG3, PHOS3, CMP3M #### [address] [address] [place] [place] GFR/1.73 sq M.predicted among non-blacks MDRD (S/P/Bld) [Vol rate/Area] 81.8 mL/min/{1.73_m2} Normal >60 [facility] Comment on above: Result Comment: KDIG O guidelines provide the following GFR categories: Stage GFR(ml/min/1.73 m2) Terms G1 >=90 Normal or high G2 60-89 Mildly decreased* G3a 45-59 Mildly to moderately decreased G3b 30-44 Moderately to severely decreased G4 15-29 Severely decreased G5 <15 Kidney failure *Relative to young adult level. In the absence of evidence of kidney damage, neither GFR category G1 nor G2 fulfill the criteria for CKD. The CKD-EPI equation is validated in individuals 18 years of age and older. Currently the best equation for estimating glomerular filtration rate (GFR) from serum creatinine in children is the Bedside Vann equation. It is less accurate in patients with extremes of muscle mass, restriction of dietary protein, ingestion of creatine, extra-renal metabolism of creatinine, or treatment with medications that affect renal tubular creatinine secretion. Performed By: #### H EMDF, MG3, PHOS3, CMP3M #### [address] [address] [place], [place] Protein [Mass/Vol] 6.6 g/dL Normal 6.3-8.2 [facility] Comment on above: Performed By: #### H EMDF, MG3, PHOS3, CMP3M #### [address] Chloride [Moles/Vol] 105 mmol/L Normal 98-107 [facility] Comment on above: Performed By: #### H EMDF, MG3, PHOS3, CMP3M #### [address] Potassium [Moles/Vol] 4.5 mmol/L Normal 3.5-5.1 [facility] Comment on above: Performed By: #### H EMDF, MG3, PHOS3, CMP3M #### [address] [address] [place], [place] Sodium [Moles/Vol] 137 mmol/L Normal 135-145 [facility] Comment on above: Performed By: #### H EMDF, MG3, PHOS3, CMP3M #### [address] [address] [place] [place] Albumin [Mass/Vol] 3.5 g/dL Normal 3.5-5.0 [facility] Comment on above: Performed By: #### H EMDF, MG3, PHOS3, CMP3M #### [address] Comprehensive Metabolic Pane l w/ Reflex to MGOrdered By: Leonardo De La Cruz on 09-07-2020 Albumin [Mass/Vol] 3.5 g/dL 3.5 - 5.0 g/dL [facility] Work Phone: ALP (Bld) [Catalytic activity/Vol] 95 U/L 38 - 126 U/L [facility] Work Phone: ALT [Catalytic activity/Vol] 37 U/L 0 - 49 U/L [facility] Work Phone: Comment on above: The ALT test is perf ormed by an updated assay method. Please note that the reference intervals have been changed and are now sex specific. Anion gap [Moles/Vol] 8 mmol/L 3 - 13 mmol/L [facility] Work Phone: [phone] AST [Catalytic activity/Vol] 35 U/L 15 - 46 U/L [facility] Work Phone: Bilirubin [Mass/Vol] 1.0 mg/dL 0.2 - 1 .3 mg/dL [facility] Work Phone: [phone] Calcium [Mass/Vol] 8.5 mg/dL 8.4 - 10. 4 mg/dL [facility] Work Phone: [phone] Chloride [Moles/Vol] 105 mmol/L 98 - 10 7 mmol/L [facility] Work Phone: [phone] CO2 [Moles/Vol] 24 mmol/L 22 - 30 mmol/L [facility] Work Phone: Creatinine [Mass/Vol] 1.02 mg/dL 0.52 - 1.25 mg/dL [facility] Work Phone: EGFR IF NonAfrican Jordanian 81.8 mL/min >60 [facility] Work Phone: Comment on above: KDIGO guidelines pro vide the following GFR categories: Stage GFR(ml/min/1.73 m2) Terms G1 >=90 Normal or high G2 60-89 Mildly decreased* G3a 45-59 Mildly to moderately decreased G3b 30-44 Moderately to severely decreased G4 15-29 Severely decreased G5 <15 Kidney failure *Relative to young adult level. In the absence of evidence of kidney damage, neither GFR category G1 nor G2 fulfill the criteria for CKD. The CKD-EPI equation is validated in individuals 18 years of age and older. Currently the best equation for estimating glomerular filtration rate (GFR) from serum creatinine in children is the Bedside Vann equation. It is less accurate in patients with extremes of muscle mass, restriction of dietary protein, ingestion of creatine, extra-renal metabolism of creatinine, or treatment with medications that affect renal tubular creatinine secretion. Free PSA/Total PSA [Mass fraction] 6.6 g/dL 6.3 - 8.2 g/dL [facility] Work Phone: GFR/1.73 sq M.predicted among blacks MDRD (S/P/Bld) [Vol rate/Area] mL/min/{1.73_m2} >60 mL/min [facility] Work Phone: Glucose [Mass/Vol] 87 mg/dL 70 - 100 mg/dL [facility] Work Phone: Potassium [Moles/Vol] 4.5 mmol/L 3.5 - 5.1 mmol/L [facility] Work Phone: Sodium [Moles/Vol] 137 mmol/L 135 - 145 mmol/L [facility] Work Phone: Urea nitrogen (BldV) [Mass/Vol] 14 mg/dL 7 - 20 mg/dL [facility] Work Phone: ECHO Complete 2D W Doppler W ColorOrdered By: Leonardo De La Cruz on 09-07-2020 TRANSTHORACIC ECHOCARDIOGRAM PATIENT: Cihlo Carson STUDY DATE: 09/07/2020 : 1965 AGE: 55 HT/WT: 167.6 cm (66 93.9 kg (206.6 in) lb) GENDER: M BP: 123 / 67 LOCATION: [facility] PATIENT Inpatient main STATUS: *ORDERING PHYSICIAN: * Leonardo De La Cruz *READING PHYSICIAN: * Adelaide Serrano *DRY PAN CHARGER: * Ashlyn Yusuf ----- INDICATIONS: CAD s/p ID (2017). ----- CONCLUSIONS SUMMARY: 1. Left ventricle: Systolic function is normal by the biplane method of disks. The estimated ejection fraction is 56%. There are no regional wall motion abnormalities. Left ventricular diastolic function parameters are normal. 2. No significant valve disease. ----- STUDY DATA: Complete transthoracic echocardiogram. Procedure: Image quality was good. M-mode, complete 2D, strain rate, complete spectral Doppler, and color flow Doppler images were acquired and archived for permanent storage and are available for subsequent review. Study status: Routine. Patient status: Inpatient. ----- FINDINGS LEFT VENTRICLE: Average LV global longitudinal strain is -24. The cavity size is normal. Wall thickness is normal. Systolic function is normal by the biplane method of disks. The estimated ejection fraction is 56%. There are no regional wall motion abnormalities. Left ventricular diastolic function parameters are normal. E/e' average: 7.6 RIGHT VENTRICLE: The cavity size is normal. Systolic function is normal. Right ventricular systolic pressure is within the normal range. VENTRICULAR SEPTUM: There is no evidence of a ventricular septal defect. LEFT ATRIUM: The atrium is normal in size. RIGHT ATRIUM: The atrium is normal in size. ATRIAL SEPTUM: Color Doppler shows no shunt. MITRAL VALVE: Structurally normal valve. Doppler: There is no regurgitation. AORTIC VALVE: Trileaflet; mildly thickened, mildly calcified leaflets. Doppler: There is trivial, less than 1+ regurgitation. The peak systolic gradient is 10 mm Hg. The peak systolic velocity is 1.6 m/sec. TRICUSPID VALVE: Structurally normal valve. Doppler: There is trivial, less than 1+ regurgitation. PULMONIC VALVE: Structurally normal valve. Doppler: There is trivial, less than 1+ regurgitation. AORTA: The aorta is normal. PULMONARY ARTERY: Main pulmonary artery: Normal. PERICARDIUM: There is no pericardial effusion. SYSTEMIC VEINS: Inferior vena cava: The vessel is normal. The IVC collapses by greater than 50% with inspiration. ----- Measurements Value Reference Aortic root ID 3.2 cm <4.2 Aortic root ID, STJ, ED (L) 2.1 cm 2.3 - 3.5 Aortic root ID/bsa, STJ, ED (L) 1.0 cm/m^2 1.1 - 1.9 Value Reference Ascending aorta ID, A-P, S 3.1 cm Ascending aorta ID/bsa, A-P, S 1.4 cm/m^2 Left ventricle Value Reference GLS, 2D 21.38 % LV ID, ED 4.6 cm 4.2 - 5.8 LV ID, ES 3.1 cm 2.5 - 4.0 LV ID/bsa, ED 2.2 cm/m^2 2.2 - 3.0 LV ID/bsa, ES 1.4 cm/m^2 1.3 - 2.1 LV PW thickness, ED (H) 1.1 cm 0.6 - 1.0 LV PW/LV ID ratio, ED 0.24 LV wall mass 137 g 96 - 200 LV wall mass/bsa 64 g/m^2 50 - 102 Stroke volume/bsa, 1-p A2C 34.8 ml/m^2 LV end-diastolic volume, 1-p A4C (H) 205 ml 69 - 185 LV end-systolic volume, 1-p A4C (H) 95 ml 22 - 78 LV end-diastolic volume, 2-p (H) 154 ml 62 - 150 LV end-systolic volume, 2-p (H) 67 ml 21 - 61 LV ejection fraction, 2-p 56 % 52 - 72 LV E/e', lateral 6.9 LV E/e', medial 8.5 LV E/e', average 7.6 Ventricular septum Value Reference IVS thickness, ED 0.7 cm 0.6 - 1.0 LVOT Value Reference LVOT ID, A-P 1. (more content not included)... [employer] Work Phone: [place], [facility] Incoming Cardiology Results From [email or web address] - 09/07/2020 2:02 PM EDT TRANSTHORACIC ECHOCARDIOGRAM PATIENT: Chilo Carson STUDY DATE: 09/07/2020 : 1965 AGE: 55 HT/WT: 167.6 cm (66 93.9 kg (206.6 in) lb) GENDER: M BP: 123 / 67 LOCATION: [facility] PATIENT Inpatient main STATUS: *ORDERING PHYSICIAN: * Leonardo De La Cruz *READING PHYSICIAN: * Adelaide Serrano *DRY PAN CHARGER: * Ashlyn Yusuf ----- INDICATIONS: CAD s/p ID (2017). ----- CONCLUSIONS SUMMARY: 1. Left ventricle: Systolic function is normal by the biplane method of disks. The estimated ejection fraction is 56%. There are no regional wall motion abnormalities. Left ventricular diastolic function parameters are normal. 2. No significant valve disease. ----- STUDY DATA: Complete transthoracic echocardiogram. Procedure: Image quality was good. M-mode, complete 2D, strain rate, complete spectral Doppler, and color flow Doppler images were acquired and archived for permanent storage and are available for subsequent review. Study status: Routine. Patient status: Inpatient. ----- FINDINGS LEFT VENTRICLE: Average LV global longitudinal strain is -24. The cavity size is normal. Wall thickness is normal. Systolic function is normal by the biplane method of disks. The estimated ejection fraction is 56%. There are no regional wall motion abnormalities. Left ventricular diastolic function parameters are normal. E/e' average: 7.6 RIGHT VENTRICLE: The cavity size is normal. Systolic function is normal. Right ventricular systolic pressure is within the normal range. VENTRICULAR SEPTUM: There is no evidence of a ventricular septal defect. LEFT ATRIUM: The atrium is normal in size. RIGHT ATRIUM: The atrium is normal in size. ATRIAL SEPTUM: Color Doppler shows no shunt. MITRAL VALVE: Structurally normal valve. Doppler: There is no regurgitation. AORTIC VALVE: Trileaflet; mildly thickened, mildly calcified leaflets. Doppler: There is trivial, less than 1+ regurgitation. The peak systolic gradient is 10 mm Hg. The peak systolic velocity is 1.6 m/sec. TRICUSPID VALVE: Structurally normal valve. Doppler: There is trivial, less than 1+ regurgitation. PULMONIC VALVE: Structurally normal valve. Doppler: There is trivial, less than 1+ regurgitation. AORTA: The aorta is normal. PULMONARY ARTERY: Main pulmonary artery: Normal. PERICARDIUM: There is no pericardial effusion. SYSTEMIC VEINS: Inferior vena cava: The vessel is normal. The IVC collapses by greater than 50% with inspiration. ----- Measurements Value Reference Aortic root ID 3.2 cm <4.2 Aortic root ID, STJ, ED (L) 2.1 cm 2.3 - 3.5 Aortic root ID/bsa, STJ, ED (L) 1.0 cm/m^2 1.1 - 1.9 Value Reference Ascending aorta ID, A-P, S 3.1 cm Ascending aorta ID/bsa, A-P, S 1.4 cm/m^2 Left ventricle Value Reference GLS, 2D 21.38 % LV ID, ED 4.6 cm 4.2 - 5.8 LV ID, ES 3.1 cm 2.5 - 4.0 LV ID/bsa, ED 2.2 cm/m^2 2.2 - 3.0 LV ID/bsa, ES 1.4 cm/m^2 1.3 - 2.1 LV PW thickness, ED (H) 1.1 cm 0.6 - 1.0 LV PW/LV ID ratio, ED 0.24 LV wall mass 137 g 96 - 200 LV wall mass/bsa 64 g/m^2 50 - 102 Stroke volume/bsa, 1-p A2C 34.8 ml/m^2 LV end-diastolic volume, 1-p A4C (H) 205 ml 69 - 185 LV end-systolic volume, 1-p A4C (H) 95 ml 22 - 78 LV end-diastolic volume, 2-p (H) 154 ml 62 - 150 LV end-systolic volume, 2-p (H) 67 ml 21 - 61 LV ejection fraction, 2-p 56 % 52 - 72 LV E/e', lateral 6.9 LV E/e', medial 8.5 LV E/e', average 7.6 Ventricular septum Value Reference IVS thickness, ED 0.7 cm 0.6 - 1.0 LVOT Value Reference LVOT ID, A-P 1.8 cm LVOT mean velocity, S 0.5 m/sec LVOT peak gradient, S 2 mm Hg Stroke volume (SV), LVOT DP 40 ml Stroke index (SV/bsa), LVOT DP 19 ml/m^2 Aortic valve Value Reference Aortic valve peak velocity, S 1.6 m/sec Aortic peak gradient, S 10 mm Hg Left atrium Value Reference LA volume/bsa, ES, 2-p 19 ml/m^2 16 - 34 Mitral valve Value Reference Mitral E-wave peak velocity 0.6 m/sec Mitral A-wave peak velocity 0.6 m/sec Mitral deceleration time 119 ms Mitral E/A ratio, peak 1.0 Systemic veins Value Reference Estimated RAP 3 mm Hg Right ventricle Value Reference TAPSE, 2D 2.7 cm 1.7 - 3.1 RV s', lateral 11.3 cm/sec 6 (more content not included)... [employer] Work Phone: [employer] Work Phone: EKG 12 LeadOrdered By: Blake Edwards on 09-07-2020 [employer] Test Date: 2020-09-06 Pat Name: CHILO CARSON Department: [facility] Room: [facility] Gender: M Worsted Winder: SARAHI : 1965 Requested By: CLINTON EDWARDS Order Number: [id number] Reading MD: Clinton Wilson Measurements Intervals [place] Rate: 88 P: 28 [place]: 144 QRS: -11 QRSD: 87 T: 39 QT: 341 QTc: 413 Interpretive Statements Sinus tachycardia Probable left atrial enlargement Left ventricular hypertrophy Electronically Signed On 09-07-2020 8:34:04 EDT by Clinton EVANS Work Phone: [facility], [facility] Incoming Cardiology Results From [facility] - 09/07/2020 8:35 AM EDT [facility] Test Date: 2020-09-06 Pat Name: CHILO CARSON Department: [facility] Room: 5135 Gender: M Worsted Winder: SARAHI : 1965 Requested By: CLINTON EDWARDS Order Number: [id number] Reading MD: Clinton Wilson Measurements Intervals [place] Rate: 88 P: 28 [place]: 144 QRS: -11 QRSD: 87 T: 39 QT: 341 QTc: 413 Interpretive Statements Sinus tachycardia Probable left atrial enlargement Left ventricular hypertrophy Electronically Signed On 09-07-2020 8:34:04 EDT by Clinton EVANS Work Phone: [employer] Work Phone: Echo Complete w/wo Contrasto n 09-07-2020 Echo Complete w/wo Contrast Patient Name: CHILO CARSON Ultrasound ACCESSION EXAM DATE/TIME PROCEDURE ORDERING PROVIDER [id number] 09/07/2020 12:54 EDT Echo Complete w/wo MD DE LA CRUZ ULYSSES Contrast Reason For Exam (Echo Complete w/wo Contrast) CAD s/p ID (2017) Report TRANSTHORACIC ECHOCARDIOGRAM PATIENT: Chilo Carson STUDY DATE: 09/07/2020 : 1965 AGE: 55 HT/WT: 167.6 cm (66 93.9 kg (206.6 in) lb) GENDER: M BP: 123 / 67 LOCATION: [facility] PATIENT Inpatient main STATUS: *ORDERING PHYSICIAN: * Leonardo De La Cruz *READING PHYSICIAN: * Adelaide Serrano *DRY PAN CHARGER: * Ashlyn Yusuf ----- INDICATIONS: CAD s/p ID (2017). ----- CONCLUSIONS SUMMARY: 1. Left ventricle: Systolic function is normal by the biplane method of disks. The estimated ejection fraction is 56%. There are no regional wall motion abnormalities. Left ventricular diastolic function parameters are normal. 2. No significant valve disease. ----- STUDY DATA: Complete transthoracic echocardiogram. Procedure: Image quality was good. M-mode, complete 2D, strain rate, complete spectral Doppler, and color flow Doppler images were acquired and archived for permanent storage and are available for subsequent review. Study status: Routine. Patient status: Inpatient. ----- FINDINGS LEFT VENTRICLE: Average LV global longitudinal strain is -24. The cavity size is normal. Wall thickness is normal. Systolic function is normal by the biplane method of disks. The estimated ejection fraction is 56%. There are no regional wall motion abnormalities. Left ventricular diastolic function parameters are normal. E/e' average: 7.6 RIGHT VENTRICLE: The cavity size is normal. Systolic function is normal. Right ventricular systolic pressure is within the normal range. VENTRICULAR SEPTUM: There is no evidence of a ventricular septal defect. Ultrasound Report LEFT ATRIUM: The atrium is normal in size. RIGHT ATRIUM: The atrium is normal in size. ATRIAL SEPTUM: Color Doppler shows no shunt. MITRAL VALVE: Structurally normal valve. Doppler: There is no regurgitation. AORTIC VALVE: Trileaflet; mildly thickened, mildly calcified leaflets. Doppler: There is trivial, less than 1+ regurgitation. The peak systolic gradient is 10 mm Hg. The peak systolic velocity is 1.6 m/sec. TRICUSPID VALVE: Structurally normal valve. Doppler: There is trivial, less than 1+ regurgitation. PULMONIC VALVE: Structurally normal valve. Doppler: There is trivial, less than 1+ regurgitation. AORTA: The aorta is normal. PULMONARY ARTERY: Main pulmonary artery: Normal. PERICARDIUM: There is no pericardial effusion. SYSTEMIC VEINS: Inferior vena cava: The vessel is normal. The IVC collapses by greater than 50% with inspiration. ----- Measurements Value Reference Aortic root ID 3.2 cm <4.2 Aortic root ID, STJ, ED (L) 2.1 cm 2.3 - 3.5 Aortic root ID/bsa, STJ, ED (L) 1.0 cm/m^2 1.1 - 1.9 Value Reference Ascending aorta ID, A-P, S 3.1 cm Ascending aorta ID/bsa, A-P, S 1.4 cm/m^2 Left ventricle Value Reference GLS, 2D 21.38 % LV ID, ED 4.6 cm 4.2 - 5.8 LV ID, ES 3.1 cm 2.5 - 4.0 LV ID/bsa, ED 2.2 cm/m^2 2.2 - 3.0 LV ID/bsa, ES 1.4 cm/m^2 1.3 - 2.1 LV PW thickness, ED (H) 1.1 cm 0.6 - 1.0 LV PW/LV ID ratio, ED 0.24 LV wall mass 137 g 96 - 200 LV wall mass/bsa 64 g/m^2 50 - 102 Stroke volume/bsa, 1-p A2C 34.8 ml/m^2 LV end-diastolic volume, 1-p A4C (H) 205 ml 69 - 185 LV end-systolic volume, 1-p A4C (H) 95 ml 22 - 78 LV end-diastolic volume, 2-p (H) 154 ml 62 - 150 LV end-systolic volume, 2-p (H) 67 ml 21 - 61 LV ejection fraction, 2-p 56 % 52 - 72 LV E/e', lateral 6.9 LV E/e', medial 8.5 LV E/e', average 7.6 Ventricular septum Value Reference IVS thickness, ED 0.7 cm 0.6 - 1.0 LVOT Value Reference LVOT ID, A-P 1.8 cm LVOT mean velocity, S 0.5 m/sec LVOT peak gradient, S 2 mm Hg Stroke volume (SV), LVOT DP 40 ml Stroke index (SV/bsa), LVOT DP 19 ml/m^2 Ultrasound Report Aortic valve Value Reference Aortic valve peak velocity, S 1.6 m/sec Aortic peak gradient, S 10 mm Hg Left atrium Value Reference LA volume/bsa, ES, 2-p 19 ml/m^2 16 - 34 Mitral valve Value Reference Mitral E-wave peak velocity 0.6 m/sec Mitral A-wave peak velocity 0.6 m/sec Mitral deceleration time 119 ms Mitral E/A (more content not included)... Normal [facility] Hemogram w/ Autodiffon 09-07 Abs Baso Cnt 0.1 10*3/uL Normal 0.0-0.2 [facility] Comment on above: Performed By: #### H EMDF, MG3, PHOS3, CMP3M #### [address] [address] [place], [place] Abs Neutrophile Cnt 9.7 10*3/uL High 1.8-7.0 [facility] Comment on above: Performed By: #### H EMDF, MG3, PHOS3, CMP3M #### [address] Basophils/100 WBC (Bld) 0.5 % Normal 0.0-2.0 [facility] Comment on above: Performed By: #### H EMDF, MG3, PHOS3, CMP3M #### [address] Eosinophils (Bld) [#/Vol] 0.3 10*3/uL Normal 0.0-0.5 [facility] Comment on above: Performed By: #### H EMDF, MG3, PHOS3, CMP3M #### [address] Eosinophils/100 WBC (Bld) 2.4 % Normal 1.0-6.0 [facility] Comment on above: Performed By: #### H EMDF, MG3, PHOS3, CMP3M #### [address] Erythrocyte distribution width (RBC) [Ratio] 13.4 % Normal 11.5-14.5 [facility] Comment on above: Performed By: #### H EMDF, MG3, PHOS3, CMP3M #### [address] Granulocytes/100 WBC (Bld) 71.1 % Normal 40.0-80.0 [facility] Comment on above: Performed By: #### H EMDF, MG3, PHOS3, CMP3M #### [address] [address] [place], [place] Hematocrit (Bld) [Volume fraction] 37.8 % Low 40.0-52.0 [facility] Comment on above: Performed By: #### H EMDF, MG3, PHOS3, CMP3M #### [address] Hemoglobin (Bld) [Mass/Vol] 12.6 g/dL Low 13.0-18.0 [facility] Comment on above: Performed By: #### H EMDF, MG3, PHOS3, CMP3M #### [address] Lymphocytes (Bld) [#/Vol] 2.2 10*3/uL Normal 1.0-4.3 [facility] Comment on above: Performed By: #### H EMDF, MG3, PHOS3, CMP3M #### [address] Lymphocytes/100 WBC (Bld) 16.0 % Low 20.0-40.0 [facility] Comment on above: Performed By: #### H EMDF, MG3, PHOS3, CMP3M #### [address] MCH (RBC) [Entitic mass] 29.0 pg Normal 26.0-34.0 [facility] Comment on above: Performed By: #### H EMDF, MG3, PHOS3, CMP3M #### [address] MCHC 33.3 % Normal 32.0-36.0 [facility] Comment on above: Performed By: #### H EMDF, MG3, PHOS3, CMP3M #### [address] MCV (RBC) [Entitic vol] 86.9 fL Normal 80.0-98.0 [facility] Comment on above: Performed By: #### H EMDF, MG3, PHOS3, CMP3M #### [facility] [address] [place], [place] Monocytes (Bld) [#/Vol] 1.4 10*3/uL High 0.0-0.8 [facility] Comment on above: Performed By: #### H EMDF, MG3, PHOS3, CMP3M #### [address] [address] [place] [place], [place] Monocytes/100 WBC (Bld) 10.0 % Normal 2.0-10.0 [facility] Comment on above: Performed By: #### H EMDF, MG3, PHOS3, CMP3M #### [address] [address] [address] [place], [place] Platelet mean volume (Bld) [Entitic vol] 9.6 fL Normal 7.4-10.4 [facility] Comment on above: Performed By: #### H EMDF, MG3, PHOS3, CMP3M #### [address] [address] [address] [place], [place] Platelets (Bld) [#/Vol] 253 10*3/uL Normal 140-440 [facility] Comment on above: Performed By: #### H EMDF, MG3, PHOS3, CMP3M #### [address] [address] [address] [place], [place] RBC (Bld) [#/Vol] 4.34 10*6/uL Low 4.40-5.90 [facility] Comment on above: Performed By: #### H EMDF, MG3, PHOS3, CMP3M #### [address] [address] [address] [place], [place] WBC (Bld) [#/Vol] 13.6 10*3/uL High 3.6-10.7 [facility] Comment on above: Performed By: #### H EMDF, MG3, PHOS3, CMP3M #### [address] [address] [address] [place], [place] MRSA by PCROrdered By: Iván Montes on 09-07-2020 Staph Aureus Sc No S. aureus detecte d. Negative nasal MRSA PCR has a high negative predictive value for MRSA pneumonia. Consider stopping vancomycin if no other clinical indication. Contact Antimicrobial Stewardship for further recommendations. The analytical performance characteristics of this assay have been determined by [facility] in accordance with CLIA regulations. The modifications have not been cleared or approved by the U. S. Food and Drug Administration; however, the FDA has determined that such clearance or approval is not necessary. [facility] Work Phone: Test Performed by [employer], [address] [place] [id number] [place], [place] [address] Work Phone: [facility] Work Phone: Magnesiumon 09-07-2020 Magnesium [Mass/Vol] 2.3 mg/dL Normal 1.6-2.3 [facility] Comment on above: Performed By: #### H EMDF, MG3, PHOS3, CMP3M #### [employer] [address] [place] [phone] MagnesiumOrdered By: Leonardo De La Cruz on 09-07-2020 Magnesium [Mass/Vol] 2.3 mg/dL 1.6 - 2 .3 mg/dL [facility] Work Phone: No Panel InformationOrdered By: Leonardo De La Cruz on 09-07-2020 Test Performed by [employer], [address] [place] [id number] [place], [place] [address] Work Phone: [facility] Work Phone: Phosphoruson 09-07-2020 Phosphate [Mass/Vol] 3.9 mg/dL Normal 2.5-4.5 [facility] Comment on above: Performed By: #### H EMDF, MG3, PHOS3, CMP3M #### [employer] [address] [place] [phone] PhosphorusOrdered By: Humphrey De La Cruz on 09-07-2020 Phosphate [Mass/Vol] 3.9 mg/dL 2.5 - 4 .5 mg/dL [facility] Work Phone: Staph Aureus Complete Nasalo n 09-07-2020 Staph Aureus Complete Nasal Staph Screen --> Status: F No S. aureus detected. Negative nasal MRSA PCR has a high negative predictive value for MRSA pneumonia. Consider stopping vancomycin if no other clinical indication. Contact Antimicrobial Stewardship for further recommendations. The analytical performance characteristics of this assay have [facility] in accordance with CLIA regulations. The modifications have not been cleared or approved by the U. S. Food and Drug Administration; however, the FDA has determined that such clearance or approval is not necessary. Negative nasal MRSA PCR has a high negative predictive value for MRSA pneumonia. Consider stopping vancomycin if no other clinical indication. Contact Antimicrobial Stewardship for further recommendations. The analytical performance characteristics of this assay have been determined by [facility] in accordance with CLIA regulations. The modifications have not been cleared or approved by the U. S. Food and Drug Administration; however, the FDA has determined that such clearance or approval is not necessary. Normal [facility] Comment on above: Performed By: #### H EMDF, MG3, PHOS3, CMP3M #### [address] [address] [place], [place] Basic Metabolic Panelon 05-1 Calcium [Mass/Vol] 8.8 mg/dL Normal 8.4-10.4 [facility] Comment on above: Performed By: #### H EMDF, MG3, PHOS3, CMP3M #### [address] [address] [place], [place] Anion gap [Moles/Vol] 10 mmol/L Normal 3-13 [facility] Comment on above: Performed By: #### H EMDF, MG3, PHOS3, CMP3M #### [address] [address] [address] [place], [place] CO2 [Moles/Vol] 22 mmol/L Normal 22-30 [facility] Comment on above: Performed By: #### H EMDF, MG3, PHOS3, CMP3M #### [address] [address] [place] [place], [place] Glucose [Mass/Vol] 126 mg/dL High 70-100 [facility] Comment on above: Performed By: #### H EMDF, MG3, PHOS3, CMP3M #### [address] [address] [place] [address] Urea nitrogen [Mass/Vol] 14 mg/dL Normal 7-20 [facility] Comment on above: Performed By: #### H EMDF, MG3, PHOS3, CMP3M #### [address] [phone] Creatinine [Mass/Vol] 1.13 mg/dL Normal 0.52-1.25 [facility] Comment on above: Performed By: #### H EMDF, MG3, PHOS3, CMP3M #### [address] [phone] GFR/1.73 sq M.predicted among blacks MDRD (S/P/Bld) [Vol rate/Area] 83.7 mL/min/{1.73_m2} Normal >60 [facility] Comment on above: Performed By: #### H EMDF, MG3, PHOS3, CMP3M #### [address] [phone] GFR/1.73 sq M.predicted among non-blacks MDRD (S/P/Bld) [Vol rate/Area] 72.2 mL/min/{1.73_m2} Normal >60 [facility] Comment on above: Result Comment: KDIG O guidelines provide the following GFR categories: Stage GFR(ml/min/1.73 m2) Terms G1 >=90 Normal or high G2 60-89 Mildly decreased* G3a 45-59 Mildly to moderately decreased G3b 30-44 Moderately to severely decreased G4 15-29 Severely decreased G5 <15 Kidney failure *Relative to young adult level. In the absence of evidence of kidney damage, neither GFR category G1 nor G2 fulfill the criteria for CKD. The CKD-EPI equation is validated in individuals 18 years of age and older. Currently the best equation for estimating glomerular filtration rate (GFR) from serum creatinine in children is the Bedside Vann equation. It is less accurate in patients with extremes of muscle mass, restriction of dietary protein, ingestion of creatine, extra-renal metabolism of creatinine, or treatment with medications that affect renal tubular creatinine secretion. Performed By: #### H EMDF, MG3, PHOS3, CMP3M #### [address] [phone] Potassium [Moles/Vol] 4.1 mmol/L Normal 3.5-5.1 [facility] Comment on above: Performed By: #### H EMDF, MG3, PHOS3, CMP3M #### [facility] [address] [place] [address] Chloride [Moles/Vol] 99 mmol/L Normal 98-107 [facility] Comment on above: Performed By: #### H EMDF, MG3, PHOS3, CMP3M #### [facility] [address] [place] [address] Sodium [Moles/Vol] 132 mmol/L Low 135-145 [facility] Comment on above: Performed By: #### H EMDF, MG3, PHOS3, CMP3M #### [address] [address] [place] [address] Basic Metabolic PanelOrdered By: Shaw Zimmerman on 09-06-2020 Anion gap [Moles/Vol] 10 mmol/L 3 - 13 mmol/L [facility] Work Phone: Calcium [Mass/Vol] 8.8 mg/dL 8.4 - 10. 4 mg/dL [facility] Work Phone: Chloride [Moles/Vol] 99 mmol/L 98 - 10 7 mmol/L [facility] Work Phone: CO2 [Moles/Vol] 22 mmol/L 22 - 30 mmol/L [facility] Work Phone: Creatinine [Mass/Vol] 1.13 mg/dL 0.52 - 1.25 mg/dL [facility] Work Phone: EGFR IF NonAfrican Jordanian 72.2 mL/min >60 [facility] Work Phone: Comment on above: KDIGO guidelines pro vide the following GFR categories: Stage GFR(ml/min/1.73 m2) Terms G1 >=90 Normal or high G2 60-89 Mildly decreased* G3a 45-59 Mildly to moderately decreased G3b 30-44 Moderately to severely decreased G4 15-29 Severely decreased G5 <15 Kidney failure *Relative to young adult level. In the absence of evidence of kidney damage, neither GFR category G1 nor G2 fulfill the criteria for CKD. The CKD-EPI equation is validated in individuals 18 years of age and older. Currently the best equation for estimating glomerular filtration rate (GFR) from serum creatinine in children is the Bedside Vann equation. It is less accurate in patients with extremes of muscle mass, restriction of dietary protein, ingestion of creatine, extra-renal metabolism of creatinine, or treatment with medications that affect renal tubular creatinine secretion. GFR/1.73 sq M.predicted among blacks MDRD (S/P/Bld) [Vol rate/Area] 83.7 mL/min/{1.73_m2} >60 [facility] Work Phone: Glucose [Mass/Vol] 126 mg/dL High 70 - 100 mg/dL [employer] Work Phone: [phone] Interpretation and review of laboratory results Abnormal [facility] Work Phone: [phone] Potassium [Moles/Vol] 4.1 mmol/L 3.5 - 5.1 mmol/L [facility] Work Phone: [phone] Sodium [Moles/Vol] 132 mmol/L Low 135 - 145 mmol/L [facility] Work Phone: [phone] Urea nitrogen (BldV) [Mass/Vol] 14 mg/dL 7 - 20 mg/dL [facility] Work Phone: Test Performed by [employer], [address] [place] [id number] [facility] Work Phone: [phone] [facility] Work Phone: [phone] C-Reactive Proteinon 021 CRP [Mass/Vol] 147.5 mg/L High 0.0-6.0 [employer] Comment on above: Result Comment: . Performed By: #### H EMDF, MG3, PHOS3, CMP3M #### [employer] [address] [place] [phone] C-Reactive ProteinOrdered By : Vandana Mccarty on 09-06-2020 CRP [Mass/Vol] 147.5 mg/L High 0.0 - 6.0 mg/L [employer] Work Phone: Comment on above: . Interpretation and review of laboratory results Abnormal [employer] Work Phone: Test Performed by [employer], [address] [place] [id number] [facility] Work Phone: [employer] Work Phone: CR Chest Portableon 09-07-19 21 CR Chest Portable Patient Name: CHILO CARSON Diagnostic Radiology ACCESSION EXAM DATE/TIME PROCEDURE ORDERING PROVIDER [id number] 09/06/2020 10:51 EDT CR Chest Portable [facility] CPT code 13907 Reason For Exam (CR Chest Portable) Pre-op clearance Report Examination: Portable Chest, 09 hours 09/06/2020. Comparison: None. Reason For Study: Preop clearance. Findings: Cardiac silhouette is at the upper limits of normal in size. No mediastinal abnormality is observed. Lungs are diminished in volume. No pleuroparenchymal abnormality is observed. Osseous structures appear intact. Support Devices: None. Conclusion(s): No radiographic evidence of chest pathology. Report Dictated on Final Dictated: 09/06/2020 10:15 am Dictating Physician: MD YANCEY B NELSON Signed Date and Time: 09/06/2020 10:16 am Signed by: MD YANCEY B NELSON Transcribed Date and Time: 09/06/2020 10:15 Normal [facility] CR Forearm 2 Views Lefton CR Forearm 2 Views Left Patient Name: CHILO RICHARD Diagnostic Radiology ACCESSION EXAM DATE/TIME PROCEDURE ORDERING PROVIDER [id number] 09/06/2020 09:26 EDT CR Forearm 2 Views Left [facility] CPT code 25167 Reason For Exam (CR Forearm 2 Views Left) dog bite Report LEFT FOREARM CLINICAL INDICATION: Dog bite AP and lateral plain film views of the left forearm were obtained. COMPARISON: None. FINDINGS: No fracture or dislocation of the left forearm is identified. Mild generalized soft tissue swelling of the proximal aspect of the left forearm is noted. There is no radiopaque foreign body or soft tissue gas. IMPRESSION: No fracture or dislocation of the left forearm is identified. Soft tissue swelling. Report Dictated on Final Dictated: 09/06/2020 9:54 am Dictating Physician: MD CONN JONATHAN R Signed Date and Time: 09/06/2020 9:55 am Signed by: MD CONN JONATHAN R Transcribed Date and Time: 09/06/2020 9:54 Normal [facility] CR Hand Complete 3+ Views Le fton 09-06-2020 CR Hand Complete 3+ Views Left Patient Name: CHILO CARSON Diagnostic Radiology ACCESSION EXAM DATE/TIME PROCEDURE ORDERING PROVIDER [id number] 09/06/2020 08:42 EDT CR Hand Complete 3+ [id number] Views Left CPT code 31031 Reason For Exam (CR Hand Complete 3+ Views Left) dog bite Report LEFT HAND CLINICAL INDICATION: Dog bite AP, lateral, and oblique plain film views of the left hand were obtained. COMPARISON: None FINDINGS: No fracture or dislocation of the left hand is identified. Soft tissue swelling is noted over the dorsum of the left hand. There is no radiopaque foreign body or soft tissue gas. IMPRESSION: No fracture or dislocation of the left hand is identified. Dorsal soft tissue swelling. Report Dictated on Final Dictated: 09/06/2020 9:38 am Dictating Physician: MD CONN JONATHAN R Signed Date and Time: 09/06/2020 9:38 am Signed by: MD CONN JONATHAN R Transcribed Date and Time: 09/06/2020 9:38 Normal [facility] CR Humerus 2+ Views Lefton 0 09-06-2020 CR Humerus 2+ Views Left Patient Name: CHILO CARSON Diagnostic Radiology ACCESSION EXAM DATE/TIME PROCEDURE ORDERING PROVIDER [id number] 09/06/2020 09:26 EDT CR Humerus 2+ Views Left [id number] [facility] CPT code 97480 Reason For Exam (CR Humerus 2+ Views Left) dog bite Report LEFT HUMERUS CLINICAL INDICATION: Dog bite AP and lateral plain film views of the left humerus were obtained. COMPARISON: None FINDINGS: No fracture or dislocation of the left humerus is identified. There is no abnormal soft tissue swelling or radiopaque foreign body seen. IMPRESSION: Negative plain film examination of the left humerus. Report Dictated on Final Dictated: 09/06/2020 9:38 am Dictating Physician: MD CONN JONATHAN R Signed Date and Time: 09/06/2020 9:39 am Signed by: MD CONN JONATHAN R Transcribed Date and Time: 09/06/2020 9:38 Normal [facility] CR Wrist Complete 3 Views Le fton 09-06-2020 CR Wrist Complete 3 Views Left Patient Name: CHILO CARSON Diagnostic Radiology ACCESSION EXAM DATE/TIME PROCEDURE ORDERING PROVIDER [id number] 09/06/2020 09:25 EDT CR Wrist Complete 3 [id number] -[facility] Views Left CPT code 09489 Reason For Exam (CR Wrist Complete 3 Views Left) dog bite Report LEFT WRIST CLINICAL INDICATION: Dog bite AP, lateral, and oblique plain film views of the left wrist were obtained. COMPARISON: None FINDINGS: No fracture or dislocation of the left wrist is identified. There is no abnormal soft tissue swelling or radiopaque foreign body seen. IMPRESSION: No fracture or dislocation of the left wrist is identified. Report Dictated on Final Dictated: 09/06/2020 9:38 am Dictating Physician: MD CONN JONATHAN R Signed Date and Time: 09/06/2020 9:38 am Signed by: MD CONN JONATHAN R Transcribed Date and Time: 09/06/2020 9:38 Normal [facility] Creatinine, Random UrineOrde red By: Leonardo De La Cruz on 09-06-2020 Creatinine (U) [Mass/Vol] 75.9 mg/dL No Range [facility] Work Phone: Creatinine, Ur Randomon 08-25 Creatinine, Ur Random 75.9 mg/dL Normal No Range [facility] Comment on above: Performed By: #### N AURR, CRTUR #### [address] [address] ED Provider Noteon ED Provider Note Emergency Department Encounter [facility] EMERGENCY DEPT Patient: Chilo Carson : 1965 Date of Evaluation: 09/06/2020 ED Supervising Physician: Clay Brown MD I independently examined and evaluated Chilo Carson. In brief, Chilo Carson is a 55 y.o. male PMH including CAD, hypertension, presents with concern for animal bite. Patient reports on Thursday he was bit by a dog on his left forearm, the wound was sutured at outside hospital he was started on antibiotics, he reports over the last 24 hours she developed fever, increased redness and drainage from the wound on his left forearm. Patient evaluated outside hospital yesterday evening, started on IV antibiotics and transferred for orthopedic surgery evaluation. Focused exam: General: Nontoxic-appearing Cardiovascular: regular rhythm, normal rate, left radial pulse palpable Respiratory: non-labored breathing, no tachypnea Extremities: Multiple wounds on the left forearm including laceration on the proximal dorsal aspect with sutures in place, surrounding erythema induration, no active drainage, and tenderness to palpation Neuro: Hand: Left Hand Okay sign, opposition of distal phalanx of thumb and index finger, motor intact Thumb IP extension, motor intact Abduction of fingers against resistance, motor intact Brief ED course/MDM: Patient is a 55-year-old male, presents as above, dog bite left forearm, now developing progressive infection, arrives afebrile with reassuring vitals, no acute distress, clinically the left forearm is infected, transferred for orthopedic evaluation, consulted on arrival, will continue IV antibiotics -ceftriaxone and Flagyl (penicillin allergy), plan for hospitalization for further IV antibiotics and management per orthopedic surgery. Will obtain blood cultures labs including inflammatory markers, left upper extremity x-rays, treat pain with morphine. Labs obtained, reviewed, notable for lactate not elevated, leukocytosis WBC 24, CRP 147, ESR 39 X-rays left upper extremity no fracture or dislocation, soft tissue swelling Orthopedic surgery performed bedside debridement, will obtain MRI of the left upper extremity, recommending medical admission, will be discussed with admitting service, stable for admission. Left upper extremity MRI with findings consistent with infectious myositis, no deep soft tissue abscess, no obvious osteomyelitis. Diagnosis: Dog bite left forearm, left forearm infection Disposition: Admission All diagnostic, treatment, and disposition decisions were made by myself in conjunction with the DAR[facility]. For all further details of the patient's emergency department visit, please see their documentation. (Please note that portions of this note may have been completed with a voice recognition program. Efforts were made to edit the dictations but occasionally words are mis-transcribed.) Clay Brown MD [employer] Clay Brown MD 09/06/20 1846 [facility] ED Provider Note [facility] EMERGENCY DEPT EMERGENCY DEPARTMENT ENCOUNTER Pt Name: Chilo Carson Birthdate 1965 Date of evaluation: 09/06/2020 Provider: Shaw Zimmerman PA-C CHIEF COMPLAINT Chief Complaint Patient presents with ? Animal Bite Pt here to the ER from [facility] for dog bit that happened Mon. Pt states he knows the dog and it is up to date on shots. HISTORY OF PRESENT ILLNESS (Location/Symptom, Timing/Onset, Context/Setting, Quality, Duration, Modifying Factors, Severity) Note limiting factors. HPI I wore N95 mask with a surgical mask and goggles. Chilo Carson is a 55 y.o. male who presents to the emergency department for evaluation of infection to his left forearm. Patient states that he was seen at [facility] on 09/03/2020 for a left hand and forearm dog bite. Patient states that he knows the dog and knows is up-to-date on his vaccinations and his tetanus was updated on the . Patient states that the wound was thoroughly cleaned and sutures were applied and patient was discharged home with clindamycin. Patient returned to the ED last night on 09/05/2020 for increased pain swelling and drainage from the wound. Patient had a white blood cell count of 22,000 and a creatinine of 1.58 and mildly tachycardic at 100 bpm was not febrile at the time but states that he has had temperature since last night and took Tylenol over 8 hours ago. Patient had a CT of his forearm there and it demonstrated no abscess or acute abnormalities. Patient was given IV Cipro and clindamycin as patient has a allergy to penicillin. Patient was transferred from the hospital to [facility] and Dr. Bello was consulted discussed patient's ED course and plan and needs to be seen by orthopedics. he states that his discomfort is a 10/10 and sharp and constant and nonradiating and states that he has some tingling to his hands due to the swelling and pain. Patient states he still has forward to motion to his left upper extremity and sensation and strength is intact. Patient denies pallor. Patient is to occasional cigar use and states that he last used prior to coming into the ED today. Patient denies any other concerns or complaints at this time. Patient denies headaches, dizziness, shortness of breath, cough, chest pain, chest tightness, gregg pain, nausea, vomiting, diarrhea, dysuria, hematuria, numbness or tingling to lower extremities, rash, lower extremity edema. Nursing Notes were reviewed. REVIEW OF SYSTEMS (2+ for level 4; 10+ for level 5) At least 10 systems reviewed and otherwise acutely negative except as in the MATCH-E-BE-NASH-SHE-WISH BAND. PAST MEDICAL HISTORY No past medical history on file. SURGICAL HISTORY No past surgical history on file. CURRENT MEDICATIONS Previous Medications No medications on file ALLERGIES Pcn [penicillins] FAMILY HISTORY No family history on file. SOCIAL HISTORY Social History Socioeconomic History ? Marital status: Single Spouse name: Not on file ? Number of children: Not on file ? Years of education: Not on file ? Highest education level: Not on file Occupational History ? Not on file Social Needs ? Financial resource strain: Not on file ? Food insecurity Worry: Not on file Inability: Not on file ? Transportation needs Medical: Not on file Non-medical: Not on file Tobacco Use ? Smoking status: Not on file Substance and Sexual Activity ? Alcohol use: Not on file ? Drug use: Not on file ? Sexual activity: Not on file Lifestyle ? Physical activity Days per week: Not on file Minutes per session: Not on file ? Stress: Not on file Relationships ? Social connections Talks on phone: Not on file Gets together: Not on file Attends judaism service: Not on file Active member of club or organization: Not on file Attends meetings of clubs or organizations: Not on file Relationship status: Not on file ? Intimate partner violence Fear of current or ex partner: Not on file Emotionally abused: Not on file Physically abused: Not on file Forced sexual activity: Not on file Other Topics Concern ? Not on file Social History Narrative ? Not on file SCREENINGS PHYSICAL EXAM (up to 7 for level 4, 8 or more for level 5) ED Triage Vitals BP Temp Temp Source Pulse Resp SpO2 Height Weight 09/06/20 0805 09/06/20 0805 09/06/20 0805 09/06/20 0805 09/06/20 0805 09/06/20 0805 09/06/20 0803 09/06/20 0803 132/73 98.5 ?F (36.9 ?C) Temporal 95 16 96 % 5' 6 (1.676 m) 207 lb (93.9 kg) Physical Exam Vitals signs and nursing note reviewed. Constitutional: Appearance: Normal appearance. He is not ill-appearing or toxic-appearing. HENT: Head: Normocephalic and atraumatic. Nose: Nose normal. No congestion or rhinorrhea. Mouth/Throat: Mouth: Mucous membranes are moist. Pharynx: Oropharynx is clear. No oropharyngeal exudate or posterior oropharyngeal erythema. Eyes: General: No scleral icterus. Right eye: No discharge. Le (more content not included)... Normal [facility] Gram StainOrdered By: Dora Edwards on 09-06-2020 Gram Stain Result Rare polymorphonucle ar cells/lpf. No organisms seen. [employer] Work Phone: Test Performed by [employer], [address] [place] [address] [employer] Work Phone: [employer] Work Phone: Hemoglobin A1Con 09-06-2020 Glucose [Mass/Vol] 131 mg/dL Normal [facility] Comment on above: Performed By: #### H EMDF, MG3, PHOS3, CMP3M #### [employer] [address] [place] [phone] HbA1c (Bld) [Mass fraction] 6.2 % Abnormal [facility] Comment on above: Result Comment: Norm al less than 5.7% Prediabetes 5.7% to 6.4% Diabetes 6.5% or higher --HgbA1C levels may not be accurate in patients who have renal disease, received recent blood transfusions, are anemic, or who have dyshemoglobinemia. Performed By: #### H EMDF, MG3, PHOS3, CMP3M #### [employer] [address] [place] [phone] Hemoglobin [id number] By: Jemma De La Cruz on 09-06-2020 HbA1c (Bld) [Mass fraction] 6.2 % Abnormal [facility] Work Phone: 1 Comment on above: Normal less than 5.7 % Prediabetes 5.7% to 6.4% Diabetes 6.5% or higher --HgbA1C levels may not be accurate in patients who have renal disease, received recent blood transfusions, are anemic, or who have dyshemoglobinemia. Interpretation and review of laboratory results Abnormal [facility] Work Phone: 1 Magnesium [Mass/Vol] 131 mg/dL [facility] Work Phone: Test Performed by [employer], [address] [place] [address] [facility] Work Phone: [facility] Work Phone: Hemogram (CBC) w/Auto DiffOr dered By: Shaw Zimmerman on 09-06-2020 Hematocrit (Bld) [Volume fraction] 40.5 % 40.0 - 52.0 % [facility] Work Phone: 1 Hemoglobin.gastrointest inal spec 1 Ql (Stl) 13.5 g/dL 13.0 - 18.0 g/dL [facility] Work Phone: [phone] Interpretation and review of laboratory results Abnormal [facility] Work Phone: MCH (RBC) [Entitic mass] 28.9 pg 26.0 - 34.0 pg [facility] Work Phone: MCHC (RBC) [Mass/Vol] 33.3 % 32.0 - 36.0 % [facility] Work Phone: MCV (RBC) [Entitic vol] 86.9 fL 80.0 - 98.0 fL [facility] Work Phone: Platelet distribution width (Bld) [Ratio] 13.6 % 11.5 - 14.5 % [facility] Work Phone: Platelet mean volume (Bld) [Entitic vol] 9.3 fL 7.4 - 10.4 fL [facility] Work Phone: [phone] Platelets (Bld) [#/Vol] 282 10*3/uL 140 - 440 10*3/uL [employer] Work Phone: [phone] RBC (Bld) [#/Vol] 4.66 10*6/uL 4.40 - 5.9 0 10*6/uL [employer] Work Phone: [phone] WBC (Bld) [#/Vol] 24.0 10*3/uL High 3.6 - 10.7 10*3/uL [employer] Work Phone: [phone] Test Performed by [employer], [address] [place] [address] [employer] Work Phone: [phone] [employer] Work Phone: [phone] Hemogram w/ Autodiffon 09-06 Erythrocyte distribution width (RBC) [Ratio] 13.6 % Normal 11.5-14.5 [facility] [employer] Comment on above: Performed By: #### H EMDF, MG3, PHOS3, CMP3M #### [employer] [address] [place] [address] Hematocrit (Bld) [Volume fraction] 40.5 % Normal 40.0-52.0 [facility] Comment on above: Performed By: #### H EMDF, MG3, PHOS3, CMP3M #### [employer] [address] [place] [address] Hemoglobin (Bld) [Mass/Vol] 13.5 g/dL Normal 13.0-18.0 [facility] Comment on above: Performed By: #### H EMDF, MG3, PHOS3, CMP3M #### [employer] [address] [place] [phone] MCH (RBC) [Entitic mass] 28.9 pg Normal 26.0-34.0 [facility] Comment on above: Performed By: #### H EMDF, MG3, PHOS3, CMP3M #### [employer] [address] [place] [phone] MCHC 33.3 % Normal 32.0-36.0 [facility] Comment on above: Performed By: #### H EMDF, MG3, PHOS3, CMP3M #### [place] [address] [address] [place] MCV (RBC) [Entitic vol] 86.9 fL Normal 80.0-98.0 [facility] Comment on above: Performed By: #### H EMDF, MG3, PHOS3, CMP3M #### [place] [address] [place], [place] Platelet mean volume (Bld) [Entitic vol] 9.3 fL Normal 7.4-10.4 [facility] Comment on above: Performed By: #### H EMDF, MG3, PHOS3, CMP3M #### [place] [address] [place], [place] Platelets (Bld) [#/Vol] 282 10*3/uL Normal 140-440 [facility] Comment on above: Performed By: #### H EMDF, MG3, PHOS3, CMP3M #### [place] [address] [address] [place] RBC (Bld) [#/Vol] 4.66 10*6/uL Normal 4.40-5.90 [facility] Comment on above: Performed By: #### H EMDF, MG3, PHOS3, CMP3M #### [place] [address] [place], [place] WBC (Bld) [#/Vol] 24.0 10*3/uL High 3.6-10.7 [facility] Comment on above: Performed By: #### H EMDF, MG3, PHOS3, CMP3M #### [address] Lactic Acidon 09-06-2020 Lactate [Moles/Vol] 1.3 mmol/L Normal 0.7-2.0 [facility] Comment on above: Performed By: #### H EMDF, MG3, PHOS3, CMP3M #### [place] [address] [place], [place] Lactic Acid, PlasmaOrdered B y: Shaw Polce on 09-06-2020 Lactate [Moles/Vol] 1.3 mmol/L 0.7 - 2. 0 mmol/L [employer] Work Phone: [facility]formed [facility], [address] [place] [id number] [place] [address] Work Phone: [employer] Work Phone: Lipid Panelon 09-06-2020 Chol/HDL 5 Normal [facility] Comment on above: Result Comment: Ref Range: < 3 Low Risk for CHD 3-6 Mod Risk for CHD > 6 High Risk for CHD Performed By: #### H EMDF, MG3, PHOS3, CMP3M #### [employer] [address] [place] [phone] Cholesterol in HDL [Mass/Vol] 41 mg/dL Normal 40-60 [facility] [employer] Comment on above: Performed By: #### H EMDF, MG3, PHOS3, CMP3M #### [employer] [address] [place] [phone] Low Density Lipoprotein 125 mg/dL Abnormal <100 [facility] Comment on above: Performed By: #### H EMDF, MG3, PHOS3, CMP3M #### [employer] [address] [place] [phone] Triglyceride [Mass/Vol] 103 mg/dL Normal <150 [facility] Comment on above: Performed By: #### H EMDF, MG3, PHOS3, CMP3M #### [employer] [address] [place] [phone] Cholesterol [Mass/Vol] 187 mg/dL Normal < 200 [facility] Comment on above: Performed By: #### H EMDF, MG3, PHOS3, CMP3M #### [employer] [address] [place] [phone] Lipid PanelOrdered By: Abhi De La Cruz on 09-06-2020 Cholesterol [Mass/Vol] 187 mg/dL <200 [facility] Work Phone: Cholesterol in HDL [Mass/Vol] 41 mg/dL 40 - 60 mg/dL [facility] Work Phone: Cholesterol in LDL [Mass/Vol] 125 mg/dL Abnormal <100 [employer] Work Phone: Cholesterol.total/Suad sterol in HDL [Mass ratio] 5 {ratio} [employer] Work Phone: Comment on above: Ref Range: < 3 Low Risk for CHD 3-6 Mod Risk for CHD > 6 High Risk for CHD Interpretation and review of laboratory results Abnormal [employer] Work Phone: Triglyceride [Mass/Vol] 103 mg/dL <150 [facility] [employer] Work Phone: Test Performed by [employer] [address] [employer] Work Phone: [employer] Work Phone: MRI UE Non Joint w/ + w/o Co ntrast Lefton 09-06-2020 MRI UE Non Joint w/ + w/o Contrast Left [facility]: [id number] Imaging ACCESSION EXAM DATE/TIME PROCEDURE ORDERING PROVIDER [id number] 09/06/2020 14:00 EDT MRI Up Ext Non Joint w/ [id number] -[place] + w/o Contrast L CPT code 85925 Reason For Exam (MRI Up Ext Non Joint w/ + w/o Contrast L) concer for infection dog bite;concer for infection dog bite Report Examination: MRI left forearm Indication: Concern for infection dog bite Technique: Multiplanar multi-sequence MRI images of the left forearm were obtained. Post gadolinium T1 fat saturated axial, sagittal and coronal MRI imaging was also obtained following intravenous contrast administration of 9 mL Gadavist. Findings: There is diffuse subcutaneous soft tissue edema and enhancement along the dorsum of the hand, wrist and forearm. There is also subcutaneous soft tissue edema and enhancement along the medial aspect of the forearm. Mild edema and enhancement is present within the dorsal forearm musculature with susceptibility artifact at the presumed puncture wound on sagittal image 16 of series 9 and axial image 36 of series 15. There is a large soft tissue laceration along the proximal posterior forearm as noted on axial images 40/45 of series 15. Mild muscular edema is present within the ECU musculature, at the level of the large laceration There is also mild fascial edema/enhancement along the volar-medial aspect of the forearm as noted on axial image 39 of series 15. There is diffuse soft tissue edema/enhancement along the thenar eminence extending into the first webspace. It is uncertain whether there is associated soft tissue edema/enhancement of the thumb or if this finding is technical/artifactual. No obvious deep soft tissue abscess is demonstrated. No obvious acute osteomyelitis is noted within the limits of this exam. Impression: Large soft tissue laceration along the proximal posterior forearm slightly distal to the elbow. There is associated soft tissue edema/cellulitis involving the forearm, wrist and dorsum of the hand. There is also involvement of the soft tissues along the thenar eminence and first webspace. Presumed infectious myositis of the dorsal forearm musculature Magnetic Resonance Imaging Report involving the extensor digitorum musculature, ECU and extensor carpi radialis musculature. No deep soft tissue abscess. No obvious acute osteomyelitis. Follow-up recommended. Report Dictated on Workstation: [id number] Final Dictated: 09/06/2020 2:33 pm Dictating Physician: MD LANE KRIKOR Signed Date and Time: 09/06/2020 2:43 pm Signed by: MD LANE KRIKOR Transcribed Date and Time: 09/06/2020 2:33 Normal [facility] MRI Upper Extremity Left WO JT W WO ContrastOrdered By: Clinton Edwards on 09-06-2020 [id number] Magnetic Resonance Imaging ACCESSION EXAM DATE/TIME PROCEDURE ORDERING PROVIDER [id number] 09/06/2020 14:00 EDT MRI Up Ext Non Joint w/ [id number] -[place] + w/o Contrast L CPT code 50675 Reason For Exam (MRI Up Ext Non Joint w/ + w/o Contrast L) concer for infection dog bite;concer for infection dog bite Report Examination: MRI left forearm Indication: Concern for infection dog bite Technique: Multiplanar multi-sequence MRI images of the left forearm were obtained. Post gadolinium T1 fat saturated axial, sagittal and coronal MRI imaging was also obtained following intravenous contrast administration of 9 mL Gadavist. Findings: There is diffuse subcutaneous soft tissue edema and enhancement along the dorsum of the hand, wrist and forearm. There is also subcutaneous soft tissue edema and enhancement along the medial aspect of the forearm. Mild edema and enhancement is present within the dorsal forearm musculature with susceptibility artifact at the presumed puncture wound on sagittal image 16 of series 9 and axial image 36 of series 15. There is a large soft tissue laceration along the proximal posterior forearm as noted on axial images 40/45 of series 15. Mild muscular edema is present within the ECU musculature, at the level of the large laceration There is also mild fascial edema/enhancement along the volar-medial aspect of the forearm as noted on axial image 39 of series 15. There is diffuse soft tissue edema/enhancement along the thenar eminence extending into the first webspace. It is uncertain whether there is associated soft tissue edema/enhancement of the thumb or if this finding is technical/artifactual. No obvious deep soft tissue abscess is demonstrated. No obvious acute osteomyelitis is noted within the limits of this exam. Impression: Large soft tissue laceration along the proximal posterior forearm slightly distal to the elbow. There is associated soft tissue edema/cellulitis involving the forearm, wrist and dorsum of the hand. There is also involvement of the soft tissues along the thenar eminence and first webspace. Presumed infectious myositis of the dorsal forearm musculature Magnetic Resonance Imaging Report involving the extensor digitorum musculature, ECU and extensor carpi radialis musculature. No deep soft tissue abscess. No obvious acute osteomyelitis. Follow-up recommended. Report Dictated on Workstation: [id number] --- Final --- Dictated: 09/06/2020 2:33 pm Dictating Physician: MD LANE KRIKOR Signed Date and Time: 09/06/2020 2:43 pm Signed by: MD LANE KRIKOR Transcribed Date and Time: 09/06/2020 2:33 [facility] Work Phone: [facility], [facility] Incoming Radiology Results From [facility] - 09/06/2020 2:44 PM EDT Patient Name: CHILO CARSON Magnetic Resonance Imaging ACCESSION EXAM DATE/TIME PROCEDURE ORDERING PROVIDER [id number] 09/06/2020 14:00 EDT MRI Up Ext Non Joint w/ [id number] -[place] + w/o Contrast L CPT code 48212 Reason For Exam (MRI Up Ext Non Joint w/ + w/o Contrast L) concer for infection dog bite;concer for infection dog bite Report Examination: MRI left forearm Indication: Concern for infection dog bite Technique: Multiplanar multi-sequence MRI images of the left forearm were obtained. Post gadolinium T1 fat saturated axial, sagittal and coronal MRI imaging was also obtained following intravenous contrast administration of 9 mL Gadavist. Findings: There is diffuse subcutaneous soft tissue edema and enhancement along the dorsum of the hand, wrist and forearm. There is also subcutaneous soft tissue edema and enhancement along the medial aspect of the forearm. Mild edema and enhancement is present within the dorsal forearm musculature with susceptibility artifact at the presumed puncture wound on sagittal image 16 of series 9 and axial image 36 of series 15. There is a large soft tissue laceration along the proximal posterior forearm as noted on axial images 40/45 of series 15. Mild muscular edema is present within the ECU musculature, at the level of the large laceration There is also mild fascial edema/enhancement along the volar-medial aspect of the forearm as noted on axial image 39 of series 15. There is diffuse soft tissue edema/enhancement along the thenar eminence extending into the first webspace. It is uncertain whether there is associated soft tissue edema/enhancement of the thumb or if this finding is technical/artifactual. No obvious deep soft tissue abscess is demonstrated. No obvious acute osteomyelitis is noted within the limits of this exam. Impression: Large soft tissue laceration along the proximal posterior forearm slightly distal to the elbow. There is associated soft tissue edema/cellulitis involving the forearm, wrist and dorsum of the hand. There is also involvement of the soft tissues along the thenar eminence and first webspace. Presumed infectious myositis of the dorsal forearm musculature Magnetic Resonance Imaging Report involving the extensor digitorum musculature, ECU and extensor carpi radialis musculature. No deep soft tissue abscess. No obvious acute osteomyelitis. Follow-up recommended. Report Dictated on Workstation: [id number] --- Final --- Dictated: 09/06/2020 2:33 pm Dictating Physician: MD LANE KRIKOR Signed Date and Time: 09/06/2020 2:43 pm Signed by: MD LANE KRIKOR Transcribed Date and Time: 09/06/2020 2:33 [facility] Work Phone: [facility] Work Phone: Manual Diffon 09-06-2020 Abs Baso Cnt 0.5 10*3/uL High 0.0-0.2 [facility] Comment on above: Performed By: #### H EMDF, MG3, PHOS3, CMP3M #### [place] [address] [place], [place] Abs Lymph Cnt 1.2 10*3/uL Normal 1.1-4.5 [facility] Comment on above: Performed By: #### H EMDF, MG3, PHOS3, CMP3M #### [place] [address] [place], [place] Abs Monocyte Cnt 0.5 10*3/uL Normal 0.2-1.1 [facility] Comment on above: Performed By: #### H EMDF, MG3, PHOS3, CMP3M #### [address] Abs Neutrophile Cnt 21.8 10*3/uL High 2.2-8.2 [facility] Comment on above: Performed By: #### H EMDF, MG3, PHOS3, CMP3M #### [place] [address] [address] [place], [place] Bands 4 % High 0-3 [facility] Comment on above: Performed By: #### H EMDF, MG3, PHOS3, CMP3M #### [address] Basophils 2 % Normal 0-2 [facility] Comment on above: Performed By: #### H EMDF, MG3, PHOS3, CMP3M #### [place] [address] [place], [place] Lymphocytes 5 % Low 20-40 [facility] Comment on above: Performed By: #### H EMDF, MG3, PHOS3, CMP3M #### [facility] [address] [place], [place] Monocytes 2 % Normal 2-10 [facility] Comment on above: Performed By: #### H EMDF, MG3, PHOS3, CMP3M #### [facility] [address] [place], [place] RBC Morphology Normal Normal [facility] Comment on above: Performed By: #### H EMDF, MG3, PHOS3, CMP3M #### [facility] [address] [place], [place] Seg Neutrophils 87 % High 40-80 [facility] Comment on above: Performed By: #### H EMDF, MG3, PHOS3, CMP3M #### [place] [address] [address] [place], [place] Abs Eosin Cnt 0.0 10*3/uL Normal 0.0-0.5 [facility] Comment on above: Performed By: #### H EMDF, MG3, PHOS3, CMP3M #### [facility] [address] [place], [place] Cells counted 100 Normal [facility] Comment on above: Performed By: #### H EMDF, MG3, PHOS3, CMP3M #### [facility] [address] [place], [place] Eosinophils 0 % Low 1-6 [facility] Comment on above: Performed By: #### H EMDF, MG3, PHOS3, CMP3M #### [facility] [address] [place], [place] Manual DifferentialOrdered B y: Vandana Mccarty on 09-06-2020 Absolute Baso # 0.5 10*3/uL High 0.0 - 0.2 10*3/uL [employer] Work Phone: Absolute Eos # 0.0 10*3/uL 0.0 - 0.5 10*3/uL [employer] Work Phone: Absolute Lymph # 1.2 10*3/uL 1.1 - 4.5 10*3/uL [employer] Work Phone: [phone] Absolute [place] # 0.5 10*3/uL 0.2 - 1.1 10*3/uL [facility] Work Phone: [phone] Absolute Neut # 21.8 10*3/uL High 2.2 - 8.2 10*3/uL [facility] Work Phone: [phone] Bands 4 % High 0 - 3 % [employer] Work Phone: [phone] Basophils/100 WBC (Bld) 2 % 0 - 2 % [facility] Work Phone: [phone] Eosinophils/100 WBC (Bld) 0 % Low 1 - 6 % [employer] Work Phone: [phone] Interpretation and review of laboratory results Abnormal [employer] Work Phone: [phone] Lymphocytes/100 WBC (Bld) 5 % Low 20 - 40 % [employer] Work Phone: [phone] Monocytes/100 WBC (Bld) 2 % 2 - 10 % [facility] Work Phone: [phone] RBC (Bld) [#/Vol] Normal [employer] Work Phone: [phone] Seg Neutrophils 87 % High 40 - 80 % [employer] Work Phone: [phone] TOTAL CELLS COUNTED 100 [employer] Work Phone: [phone] Test Performed by [employer], [facility] [place] [place] [address] [employer] Work Phone: [phone] [employer] Work Phone: [phone] No Panel InformationOrdered By: Leonardo De La Cruz on 09-06-2020 Test Performed by [employer], [facility] [place] [place] [address] [employer] Work Phone: [phone] [employer] Work Phone: [phone] Prothrombin Timeon 1 INR 1.0 Normal 0.9-1.1 [employer] Comment on above: Result Comment: Yogesh mmended Anticoagulant Therapy: SEE BELOW ----- INR of 2.0 - 3.0 : - Prophylaxis of Venous Thrombosis (high-risk surgery) - Treatment of Venous Thrombosis - Treatment of Pulmonary Embolism (Includes tissue heart valves, Acute Myocardial Infarction to prevent systemic embolism, Valvular Heart Disease, and Atrial Fibrillation) ----- INR of 2.5 - 3.5 : - Mechanical Prosthetic Valves (high risk) - If oral anticoagulant therapy is used to prevent Myocardial Infarction Performed By: #### P T #### [employer] [address] [place] [address] PT Coag (PPP) [Time] 11.0 s Normal 9.0-12.0 [facility] [employer] Comment on above: Result Comment: . Performed By: #### P T #### [facility] [employer] [facility] [place] [address] Protime-INROrdered By: Blake Edwards on 09-06-2020 INR Coag (Bld) [Relative time] 1.0 {INR} [facility] Work Phone: Comment on above: Recommended Anticoag ulant Therapy: SEE BELOW ----- INR of 2.0 - 3.0 : - Prophylaxis of Venous Thrombosis (high-risk surgery) - Treatment of Venous Thrombosis - Treatment of Pulmonary Embolism (Includes tissue heart valves, Acute Myocardial Infarction to prevent systemic embolism, Valvular Heart Disease, and Atrial Fibrillation) ----- INR of 2.5 - 3.5 : - Mechanical Prosthetic Valves (high risk) - If oral anticoagulant therapy is used to prevent Myocardial Infarction PT Coag (PPP) [Time] 11 s 9.0 - 12.0 s [facility] Work Phone: Comment on above: . Test Performed by [employer], [address] [place] [id number] [facility] Work Phone: [facility] Work Phone: STAIN GRAMon 09-06-2020 STAIN GRAM STAIN GRAM --> Statu s: F Rare polymorphonuclear cells/lpf. No organisms seen. No organisms seen. Normal [facility] [employer] Comment on above: Performed By: #### H EMDF, MG3, PHOS3, CMP3M #### [facility] [address] Sed Rateon 09-06-2020 Sed Rate 39 mm/h High 0-10 [facility] Comment on above: Performed By: #### H EMDF, MG3, PHOS3, CMP3M #### [employer] [address] [place] [phone] Sedimentation RateOrdered By : Vandana Mccarty on 09-06-2020 Interpretation and review of laboratory results Abnormal [facility] Work Phone: [phone] Sed Rate 39 mm/h High 0 - 10 mm/h [facility] Work Phone: [phone] Test Performed by [employer], [address] [place] [address] [facility] Work Phone: [phone] [employer] Work Phone: Sodium, Ur Randomon 09-07-19 21 Sodium [Moles/Vol] 37 mmol/L Normal 30-90 [facility] Comment on above: Performed By: #### N AURR, CRTUR #### [employer] [address] [place] [phone] Sodium, Urine, RandomOrdered By: Leonardo De La Cruz on 09-06-2020 Sodium (U) [Moles/Vol] 37 mmol/L 30 - 90 mmol/ L [employer] Work Phone: TS GELon 09-06-2020 TS GEL ABO Group: A Rh, Gel: POS Antibody Screen Gel: NEG Normal [facility] Comment on above: Performed By: #### T SGL #### [facility] TYPE AND SCREENOrdered By: Barbie Edwards on 09-06-2020 ABO Grouping A [facility] Work Phone: Rh Type Positive [employer] Work Phone: Test Performed by [employer], [address] [place] [address] [employer] Work Phone: [phone] [employer] Work Phone: [phone] XR CHEST PORTABLEOrdered By: Clinton Edwards on 09-06-2020 Patient Name: CHILO CARSON Diagnostic Radiology ACCESSION EXAM DATE/TIME PROCEDURE ORDERING PROVIDER [id number] 09/06/2020 10:51 EDT CR Chest Portable [place] PAZ CPT code 90730 Reason For Exam (CR Chest Portable) Pre-op clearance Report Examination: Portable Chest, 09 hours 09/06/2020. Comparison: None. Reason For Study: Preop clearance. Findings: Cardiac silhouette is at the upper limits of normal in size. No mediastinal abnormality is observed. Lungs are diminished in volume. No pleuroparenchymal abnormality is observed. Osseous structures appear intact. Support Devices: None. Conclusion(s): No radiographic evidence of chest pathology. Report Dictated on --- Final --- Dictated: 09/06/2020 10:15 am Dictating Physician: MD YANCEY B NELSON Signed Date and Time: 09/06/2020 10:16 am Signed by: MD YANCEY B NELSON Transcribed Date and Time: 09/06/2020 10:15 [employer] Work Phone: [facility] From [facility] - 09/06/2020 10:51 AM EDT Patient Name: CHILO CARSON Diagnostic Radiology ACCESSION EXAM DATE/TIME PROCEDURE ORDERING PROVIDER [id number] 09/06/2020 10:51 EDT CR Chest Portable [place] PAZ CPT code 94236 Reason For Exam (CR Chest Portable) Pre-op clearance Report Examination: Portable Chest, 09 hours 09/06/2020. Comparison: None. Reason For Study: Preop clearance. Findings: Cardiac silhouette is at the upper limits of normal in size. No mediastinal abnormality is observed. Lungs are diminished in volume. No pleuroparenchymal abnormality is observed. Osseous structures appear intact. Support Devices: None. Conclusion(s): No radiographic evidence of chest pathology. Report Dictated on --- Final --- Dictated: 09/06/2020 10:15 am Dictating Physician: MD YANCEY B NELSON Signed Date and Time: 09/06/2020 10:16 am Signed by: MD YANCEY B NELSON Transcribed Date and Time: 09/06/2020 10:15 [facility] Phone: [facility] Work Phone: XR HAND LEFT (MIN 3 VIEWS)Or dered By: Clinton Edwards on 09-06-2020 [id number]iology ACCESSION EXAM DATE/TIME PROCEDURE ORDERING PROVIDER [id number] 09/06/2020 08:42 EDT CR Hand Complete 3+ [id number] -[place] EDWARDS Views Left CPT code 62727 Reason For Exam (CR Hand Complete 3+ Views Left) dog bite Report LEFT HAND CLINICAL INDICATION: Dog bite AP, lateral, and oblique plain film views of the left hand were obtained. COMPARISON: None FINDINGS: No fracture or dislocation of the left hand is identified. Soft tissue swelling is noted over the dorsum of the left hand. There is no radiopaque foreign body or soft tissue gas. IMPRESSION: No fracture or dislocation of the left hand is identified. Dorsal soft tissue swelling. Report Dictated on --- Final --- Dictated: 09/06/2020 9:38 am Dictating Physician: MD CONN JONATHAN R Signed Date and Time: 09/06/2020 9:38 am Signed by: MD CONN JONATHAN R Transcribed Date and Time: 09/06/2020 9:38 [facility] Work Phone: Roddy, [facility] Incoming Radiology Results From [facility] - 09/06/2020 9:40 AM EDT Patient Name: CHILO CARSON Diagnostic Radiology ACCESSION EXAM DATE/TIME PROCEDURE ORDERING PROVIDER [id number] 09/06/2020 08:42 EDT CR Hand Complete 3+ [id number] -[place] EDWARDS Left CPT code 68187 Reason For Exam (CR Hand Complete 3+ Views Left) dog bite Report LEFT HAND CLINICAL INDICATION: Dog bite AP, lateral, and oblique plain film views of the left hand were obtained. COMPARISON: None FINDINGS: No fracture or dislocation of the left hand is identified. Soft tissue swelling is noted over the dorsum of the left hand. There is no radiopaque foreign body or soft tissue gas. IMPRESSION: No fracture or dislocation of the left hand is identified. Dorsal soft tissue swelling. Report Dictated on --- Final --- Dictated: 09/06/2020 9:38 am Dictating Physician: MD CONN JONATHAN R Signed Date and Time: 09/06/2020 9:38 am Signed by: MD CONN JONATHAN R Transcribed Date and Time: 09/06/2020 9:38 [facility] Work Phone: [facility] Work Phone: XR HUMERUS LEFT (MIN 2 VIEWS )Ordered By: Clinton Edwards on 09-06-2020 Patient Name: CHILO CARSON Diagnostic Radiology ACCESSION EXAM DATE/TIME PROCEDURE ORDERING PROVIDER [id number] 09/06/2020 09:26 EDT CR Humerus 2+ Views Left [place] PA[place] CPT code 62914 Reason For Exam (CR Humerus 2+ Views Left) dog bite Report LEFT HUMERUS CLINICAL INDICATION: Dog bite AP and lateral plain film views of the left humerus were obtained. COMPARISON: None FINDINGS: No fracture or dislocation of the left humerus is identified. There is no abnormal soft tissue swelling or radiopaque foreign body seen. IMPRESSION: Negative plain film examination of the left humerus. Report Dictated on --- Final --- Dictated: 09/06/2020 9:38 am Dictating Physician: MD CONN JONATHAN R Signed Date and Time: 09/06/2020 9:39 am Signed by: MD CONN JONATHAN R Transcribed Date and Time: 09/06/2020 9:38 [facility] Work Phone: [facility], [facility] Incoming Radiology Results From [facility] - 09/06/2020 9:40 AM EDT Patient Name: CHILO CARSON Diagnostic Radiology ACCESSION EXAM DATE/TIME PROCEDURE ORDERING PROVIDER [id number] 09/06/2020 09:26 EDT CR Humerus 2+ Views Left [place] PA[place] CPT code 17961 Reason For Exam (CR Humerus 2+ Views Left) dog bite Report LEFT HUMERUS CLINICAL INDICATION: Dog bite AP and lateral plain film views of the left humerus were obtained. COMPARISON: None FINDINGS: No fracture or dislocation of the left humerus is identified. There is no abnormal soft tissue swelling or radiopaque foreign body seen. IMPRESSION: Negative plain film examination of the left humerus. Report Dictated on --- Final --- Dictated: 09/06/2020 9:38 am Dictating Physician: MD CONN JONATHAN R Signed Date and Time: 09/06/2020 9:39 am Signed by: MD CONN JONATHAN R Transcribed Date and Time: 09/06/2020 9:38 [facility] Work Phone: [facility] Work Phone: XR RADIUS ULNA LEFT (2 VIEWS )Ordered By: Clinton Edwards on 09-06-2020 [id number]iology ACCESSION EXAM DATE/TIME PROCEDURE ORDERING PROVIDER [id number] 09/06/2020 09:26 EDT CR Forearm 2 Views Left [id number] WILLAMS CPT code 26813 Reason For Exam (CR Forearm 2 Views Left) dog bite Report LEFT FOREARM CLINICAL INDICATION: Dog bite AP and lateral plain film views of the left forearm were obtained. COMPARISON: None. FINDINGS: No fracture or dislocation of the left forearm is identified. Mild generalized soft tissue swelling of the proximal aspect of the left forearm is noted. There is no radiopaque foreign body or soft tissue gas. IMPRESSION: No fracture or dislocation of the left forearm is identified. Soft tissue swelling. Report Dictated on --- Final --- Dictated: 09/06/2020 9:54 am Dictating Physician: MD CONN JONATHAN R Signed Date and Time: 09/06/2020 9:55 am Signed by: MD CONN JONATHAN R Transcribed Date and Time: 09/06/2020 9:54 [facility] Work Phone: [facility], [facility] Incoming Radiology Results From [facility] - 09/06/2020 9:56 AM EDT Patient Name: CHILO CARSON Diagnostic Radiology ACCESSION EXAM DATE/TIME PROCEDURE ORDERING PROVIDER [id number] 09/06/2020 09:26 EDT CR Forearm 2 Views Left [place] PA[place] CPT code 33178 Reason For Exam (CR Forearm 2 Views Left) dog bite Report LEFT FOREARM CLINICAL INDICATION: Dog bite AP and lateral plain film views of the left forearm were obtained. COMPARISON: None. FINDINGS: No fracture or dislocation of the left forearm is identified. Mild generalized soft tissue swelling of the proximal aspect of the left forearm is noted. There is no radiopaque foreign body or soft tissue gas. IMPRESSION: No fracture or dislocation of the left forearm is identified. Soft tissue swelling. Report Dictated on --- Final --- Dictated: 09/06/2020 9:54 am Dictating Physician: MD CONN JONATHAN R Signed Date and Time: 09/06/2020 9:55 am Signed by: MD CONN JONATHAN R Transcribed Date and Time: 09/06/2020 9:54 [facility] Work Phone: [facility] Work Phone: XR WRIST LEFT 3 VWOrdered By : Clinton Edwards on 09-06-2020 Patient Name: CHILO CARSON Diagnostic Radiology ACCESSION EXAM DATE/TIME PROCEDURE ORDERING PROVIDER [id number] 09/06/2020 09:25 EDT CR Wrist Complete 3 [id number] [place] [facility] Views Left CPT code 43787 Reason For Exam (CR Wrist Complete 3 Views Left) dog bite Report LEFT WRIST CLINICAL INDICATION: Dog bite AP, lateral, and oblique plain film views of the left wrist were obtained. COMPARISON: None FINDINGS: No fracture or dislocation of the left wrist is identified. There is no abnormal soft tissue swelling or radiopaque foreign body seen. IMPRESSION: No fracture or dislocation of the left wrist is identified. Report Dictated on --- Final --- Dictated: 09/06/2020 9:38 am Dictating Physician: MD CONN JONATHAN R Signed Date and Time: 09/06/2020 9:38 am Signed by: MD CONN JONATHAN R Transcribed Date and Time: 09/06/2020 9:38 [facility] Work Phone: [facility], [facility] Incoming Radiology Results From [facility] - 09/06/2020 9:39 AM EDT [facility]: [id number]iology ACCESSION EXAM DATE/TIME PROCEDURE ORDERING PROVIDER [id number] 09/06/2020 09:25 EDT CR Wrist Complete 3 [id number] -JERRY [place] Views Left CPT code 56705 Reason For Exam (CR Wrist Complete 3 Views Left) dog bite Report LEFT WRIST CLINICAL INDICATION: Dog bite AP, lateral, and oblique plain film views of the left wrist were obtained. COMPARISON: None FINDINGS: No fracture or dislocation of the left wrist is identified. There is no abnormal soft tissue swelling or radiopaque foreign body seen. IMPRESSION: No fracture or dislocation of the left wrist is identified. Report Dictated on --- Final --- Dictated: 09/06/2020 9:38 am Dictating Physician: MD CONN JONATHAN R Signed Date and Time: 09/06/2020 9:38 am Signed by: MD CONN JONATHAN R Transcribed Date and Time: 09/06/2020 9:38 [facility] Work Phone: [facility] Work Phone: Vital Signs Date Time Vital Sign Value Performing Clinician Facility 10-24-2024 23:00-0400 Body temperature 97.8 [degF] No Primary Care Physician [facility] 10-24-2024 23:00-0400 Diastolic blood pressure 87 mm[Hg] No Primary Care Physician [facility] 10-24-2024 23:00-0400 Heart rate 80 /min No Primary Care Physician [facility] 10-24-2024 23:00-0400 Respiratory rate 23 /min No Primary Care Physician [facility] 10-24-2024 23:00-0400 SaO2% (BldA) [Mass fraction] 96 % No Primary Care Physician [facility] 10-24-2024 23:00-0400 Systolic blood pressure 131 mm[Hg] No Primary Care Physician [facility] 10-24-2024 17:33-0400 Body height 170.18 cm No Primary Care Physician [facility] 10-24-2024 17:33-0400 Body mass index (BMI) [Ratio] 31.9 kg/m2 No Primary Care Physician [facility] 10-24-2024 17:33-0400 Body weight 92.53 kg No Primary Care Physician [facility] 07-19-2021 16:31-0400 Diastolic blood pressure 83 mm[Hg] [facility] Work Phone: 07-19-2021 16:31-0400 Heart rate 63 /min [facility] Work Phone: 07-19-2021 16:31-0400 Respiratory rate 18 /min [facility] Work Phone: 07-19-2021 16:31-0400 SaO2% (BldA) [Mass fraction] 99 % [facility] Work Phone: 07-19-2021 16:31-0400 Systolic blood pressure 149 mm[Hg] [facility] Work Phone: 07-19-2021 12:17-0400 Body height 170.18 cm [facility] Work Phone: 07-19-2021 12:17-0400 Body mass index (BMI) [Ratio] 29 kg/m2 [facility] Work Phone: 07-19-2021 12:17-0400 Body temperature 97.6 [degF] [facility] Work Phone: 07-19-2021 12:17-0400 Body weight 83.91 kg [facility] Work Phone: 05-20-2021 15:58-0500 Body temperature 98.4 [degF] [facility] Work Phone: 05-20-2021 15:58-0500 Diastolic blood pressure 83 mm[Hg] [facility] Work Phone: 05-20-2021 15:58-0500 Heart rate 69 /min [facility] Work Phone: 05-20-2021 15:58-0500 Respiratory rate 16 /min [facility] Work Phone: 05-20-2021 15:58-0500 SaO2% (BldA) [Mass fraction] 100 % [facility] Work Phone: 05-20-2021 15:58-0500 Systolic blood pressure 129 mm[Hg] [facility] Work Phone: 05-20-2021 14:28-0500 Body mass index (BMI) [Ratio] 28.1 kg/m2 [facility] Work Phone: 05-20-2021 14:28-0500 Body weight 81.64 kg [facility] Work Phone: 05-16-2021 07:05-0500 Body mass index (BMI) [Ratio] 32.6 kg/m2 [facility] Work Phone: 05-16-2021 07:05-0500 Body temperature 97.2 [degF] [facility] Work Phone: 05-16-2021 07:05-0500 Body weight 94.5 kg [facility] Work Phone: 05-16-2021 07:05-0500 Diastolic blood pressure 103 mm[Hg] [facility] Work Phone: 05-16-2021 07:05-0500 Heart rate 101 /min [facility] Work Phone: 05-16-2021 07:05-0500 Respiratory rate 18 /min [facility] Work Phone: 05-16-2021 07:05-0500 SaO2% (BldA) [Mass fraction] 97 % [facility] Work Phone: 05-16-2021 07:05-0500 Systolic blood pressure 189 mm[Hg] [facility] Work Phone: 09-08-2020 06:28-0400 Body temperature 97.59 [degF] Clay Brown MD [facility] Phone: [facility] Work Phone: 09-08-2020 06:28-0400 Diastolic blood pressure 76 mm[Hg] Clay Brown MD Work Phone: [facility] Work Phone: 09-08-2020 06:28-0400 Heart rate 70 /min Clay Brown MD [facility] Phone: [facility] Work Phone: 09-08-2020 06:28-0400 Respiratory rate 16 /min Clay Brown MD [facility] Phone: [facility] Work Phone: 09-08-2020 06:28-0400 SaO2% (BldA) [Mass fraction] 100 % Clay Brown MD Work Phone: [facility] Work Phone: 09-08-2020 06:28-0400 Systolic blood pressure 143 mm[Hg] Clay Brown MD Work Phone: [facility] Work Phone: 09-06-2020 16:17-0400 Body height 167.6 cm Clay Brown MD Work Phone: [facility] Work Phone: 09-06-2020 16:17-0400 Body mass index (BMI) [Ratio] 33.41 kg/m2 Clay Brown MD Work Phone: [facility] Work Phone: 09-06-2020 16:17-0400 Body weight 93.89 kg Clay Brown MD Work Phone: [facility] Work Phone: Encounters Encounter Date Encounter Type Care Provider Facility Start: 11-24-2024 ambulatory Caron Rea VS Faci lity:[facility] Start: 10-24-2024 End: 10-24-2024 Emergency department patient visit No Primary Care Physician -Emergency Department Work Phone: Start: 08-10-2024 End: 08-10-2024 ambulatory No Primary Care Physician [facility] Work Phone: Start: 08-10-2024 End: 08-10-[address] Clay Morgan MD -Physical Therapy Work Phone: Start: 05-04-2024 End: 05-04-[address] Clay Morgan MD -Radiology, [facility] Work Phone: Start: 05-04-2024 End: 05-04-2024 ambulatory No Primary Care Physician Facility:[facility] Start: 09-17-2021 Preoperative state No Primary Care Physician [facility] Start: 07-19-2021 End: 07-19-2021 Emergency department patient visit [facility]-Emergency Department Start: 05-20-2021 End: 05-20-2021 Patient encounter procedure [facility]-Medical Surgical 3 Outp Start: 05-16-2021 End: 05-16-2021 Emergency department patient visit [facility]-Emergency Department Start: 09-13-2020 End: 09-13-2020 Subsequent hospital visit by physician Ashley Ochoa MD Work Phone: [facility] Comment on above: Healthcare maintenan ce Start: 09-13-2020 End: 09-13-2020 Patient encounter status Ashley Ochoa MD Work Phone: [facility] USE ONLY Start: 09-06-2020 End: 09-08-2020 Evaluation and management of inpatient Clay Brown MD Work Phone: [facility] Comment on above: Cellulitis of left a rm (Primary Dx); Leukocytosis, unspecified type; Dog bite, subsequent encounter Procedures Date Procedure Procedure Detail Performing Clinician Start: 10-24-2024 Estimated creatinine clearance No Primary Care Physician Start: 05-04-2024 Plain x-ray of hand No Primary Care Physician Start: 05-04-2024 X-ray of lumbosacral spine No Primary Care Physician Start: 07-19-2021 US scan of gallbladder Start: 07-19-2021 CT of abdomen and pe lvis without contrast Start: 05-16-2021 Influenza Types A,B Direct FA (RAGHAV) Start: 09-13-2020 Antibody hiv-1&hiv-2 single result Max Lerma MD Work Phone: Start: 09-08-2020 Drug screen quantita tive vancomycin Chilo Burton DO Work Phone: Start: 09-08-2020 Assay of magnesium Jemmays killian De La Cruz MD Work Phone: Start: 09-07-2020 MRSA BY PCR Iván garza DO Work Phone: Start: 09-07-2020 Echo tthrc r-t 2d w/wom-mode compl spec&colr d Leonardo De La Cruz MD Work Phone: Start: 09-07-2020 Assay of magnesium Ana De La Cruz MD Work Phone: Start: 09-06-2020 Creatinine other source Leonardo De La Cruz MD Work Phone: Start: 09-06-2020 Hemoglobin glycosyla kay a1c Leonardo De La Cruz MD Work Phone: Start: 09-06-2020 Lipid panel Leonardo De La Cruz MD Work Phone: Start: 09-06-2020 Mri upper extrem oth er than jt w/o & w/contras Clinton Edwards MD Work Phone: Start: 09-06-2020 Smr prim src gram/gi emsa stain bct fungi/cell Clinton Edwards MD Work Phone: Start: 09-06-2020 Antibody screen April Brown MD Work Phone: Start: 09-06-2020 Ecg routine ecg w/le ast 12 lds w/i&r Clinton Edwards MD Work Phone: Start: 09-06-2020 Blood typing serolog ic abo Clinton Edwards MD Work Phone: Start: 09-06-2020 Prothrombin time Michae ike Edwards MD Work Phone: Start: 09-06-2020 Radiologic exam ches t single view Clinton Edwards MD Work Phone: Start: 09-06-2020 End: 09-06-2020 Radex humerus minimum 2 views Clinton Edwards MD Work Phone: Start: 09-06-2020 CULTURE, BLOOD 1 Shaw N Polce PA-C Work Phone: Start: 09-06-2020 Basic metabolic pane l calcium total Shaw N Polce PA-C Work Phone: Start: 09-06-2020 C-reactive protein Leigh Ann Mccarty MD Work Phone: Start: 09-06-2020 Culture bacterial bl ood aerobic w/id isolates Shaw N Polce PA-C Work Phone: Start: 09-06-2020 Manual Differential panel - Blood Vandana Mccarty MD Work Phone: Start: 03-14-2016 History of placement of stent for coronary artery disease History of coronary artery stent placement No Primary Care Physician Comment on above: YHX-Gcpbknyoqjtt-IBA to mid RCA w/ 3.5 x 23 mm Multi-Link Vision 01/14/2016; TQF-HDG-Rcse Ramus w/ 4 x 15 mm Alpine Xience Stent, LURDES-Prox OM1 w/ 3.25 x 38 mm Xience Alpine Stent, and LURDES-Prox LCx w/ 3.5 x 12 mm Xience Alpine Stent 02/15/2016; PCI-cutting balloon angioplasty and LURDES-Prox LAD w/ 2.75 x 12 mm & 3.0 x 12 mm Xience Alpine Stent 03/14/2016 Plan of Treatment Date Care Activity Detail Author Start: 09-03-2030 DTaP/Tdap/Td vaccine (2 - Td) DTaP/Tdap/Td vaccine (2 - Td) [facility] Work Phone: Start: 10-24-2024 [facility] Start: 09-06-2021 Hemoglobin A1c measurement A1C test (Diabetic or Prediabetic) [facility] Work Phone: Start: 09-06-2021 Lipid panel Lipid screen [facility] Work Phone: Start: 12-26-2020 Influenza vaccination Flu vacc ine (Season Ended) [facility] Work Phone: Start: 09-12-2020 End: 09-12-2020 Patient encounter procedure 09/12/2020 Office Visit Internal Medicine Karl Kim MD [address] [id number] [facility] Start: 2014 Screening for malign ant neoplasm of colon Colon cancer screen colonoscopy [facility] Work Phone: Start: 2014 Shingles Vaccine (1 of 2) Shingles Vaccine (1 of 2) [facility] Work Phone: Start: 08-28-1979 HIV screening HIV screen [facility] Work Phone: Start: 1976 COVID-19 Vaccine (1) COVID-19 Vaccin e (1) [facility] Work Phone: Start: 1964 Hepatitis C screening Hepatitis C sc reen [facility] Work Phone: CBC W Auto Different ial panel - Blood CBC auto differential Lab Routine Daily until discontinued starting 09/07/2020, 2 completed [facility] Work Phone: Comment on above: Daily until disconti nued starting 09/07/2020, 2 completed Comprehensive Metabo lic Panel w/ Reflex to MG Comprehensive Metabolic Panel w/ Reflex to MG Lab Routine Daily until discontinued starting 09/07/2020, 2 completed [facility] Work Phone: Comment on above: Daily until disconti nued starting 09/07/2020, 2 completed Culture, Anaerobic a nd Aerobic Culture, Anaerobic and Aerobic Microbiology STAT 09/06/2020 11:58 AM EDT [facility] Work Phone: Culture, Blood 2 Culture, Blood 2 Microbiology STAT 09/06/2020 8:25 AM EDT [facility] Work Phone: Magnesium [Mass/volu me] in Serum or Plasma Magnesium Lab Routine Daily until discontinued starting 09/07/2020, 2 completed [facility] Work Phone: Comment on above: Daily until disconti nued starting 09/07/2020, 2 completed Microscopic examinat ion of blood, culture Culture, Blood Microbiology STAT 09/06/2020 8:53 AM EDT [facility] Work Phone: Oxygen therapy [[facility] Data Set] Initiate Oxygen Therapy Protocol Respiratory Care Routine Daily until discontinued starting 09/06/2020 [facility] Work Phone: Comment on above: Daily until disconti nued starting 09/06/2020 Patient Education [facility] Work Phone: Patient referral [facility] Work Phone: Phosphate [Mass/volu me] in Serum or Plasma Phosphorus Lab Routine Daily until discontinued starting 09/07/2020, 2 completed [facility] Work Phone: Comment on above: Daily until disconti nued starting 09/07/2020, 2 completed Immunizations Immunization Date Immunization Notes Care Provider Luz carvajal 09-03-2020 tetanus toxoid, redu jerrell diphtheria toxoid, and acellular pertussis vaccine, adsorbed [facility] Payers Date Payer Category Payer Self-pay [id number] 2022 Unknown [id number] 2020 Unknown [employer] [id number] 2020-Present [phone] [address] [place] [address] [id number] Unknown [id number] Unknown [id number] Unknown [id number] Unknown [id number] Social History Date Type Detail Facility Start: 09-06-2020 End: 07-19-2021 Tobacco smoking status NHIS Unknown if ever smoked [employer] Work Phone: Start: 1965 Sex Assigned At Not on file [facility] Work Phone: Exposure to SARS-CoV -2 (event) Not sure [facility] Start: 09-13-2020 End: 10-24-2024 Tobacco smoking status NHIS Current some day smoker [facility] Start: 09-13-2020 Tobacco use and exposure Current user [facility] Start: 09-13-2020 Alcohol intake Lifetime non-d kendall (finding) [facility] Work Phone: Start: 09-06-2020 [facility] Start: 1965 Sex Assigned At Male [facility] Start: 07-25-2021 Tobacco smoking stat us NVIS Ex-smoker (finding) [facility] Start: 08-10-2024 Sex Male (finding) [facility] Mental Status Date Assessment Result Facility 05-20-2021 Cognitive function Awake;Alert;A ppropriate;Fol lows Commands [facility] Work Phone: Hospital Discharge instructions 10-24-2024 Note Date & Type Note Facility 10-24-2024 Hospital Discharg e instructions Additional Instructions Follow-up with your primary care physician in 5 to 7 days. [facility] Work Phone: Discharge summary 08-10-2024 Note Date & Type Note Facility 08-10-2024 Discharge summary [facility] Discharge summary 08-10-2024 Note Date & Type Note Facility 08-10-2024 Discharge summary Note Date/Time August 10, 2024 12:36pm [facility] Physical Therapy [facility] [address] [place] [address] / REHABILITATION SERVICES DISCHARGE SUMMARY MR#: [id number] Acct: [id number] Name: CHILO CARSON Rep #: [id number] : 1965 58 From: Madison Fuller Referring Dr.: Dr. Clay Morgan MD Status : REG RCR Insurance: [facility] SELF PAY INSURANCE Discharge Summary D/C summary: It has been my pleasure to treat CHILO CARSON referred by Dr. Clay Morgan MD, with the diagnosis of Lumbar spondylosis for a total of 7 visit(s). Discharge Date: 08/10/24 Please see the following information for a summary of their discharge status. Subjective Subjective: Pt starts having back pain mid day and worse in the evenings. His pain is not as intense. He is back to work and his first day was 17.5 hours andback pain got worse. He reports that he just gets up more often. He has to make a follow up with his Dr. He is doing HEP in evenings and it does help some. Pt reports that he will continue with HEP for now and go back to Dr for reassessment. His HEP does help him so not so stiff in the mornings. Pain back pain: Pain Intensity (Out of 10): 5 B leg pain: Pain Intensity (Out of 10): 0 Overall Improvement % Improvement: 20 Objective Objective/Function: R hip flex 18.1 and L 19.1 R knee ext 20.6 and L 20 R knee flex 13 and L 11 Good B Piriformis and HS length Pt is tighter with LTR on the L compared to the R but will continue to work on this at home. Goals Goal 1:: I HEP Goal Progress: Goal Met Goal 2:: Increase LE strength (at the time of the eval: LE MMT: R hip flex 16.1 and L 16.7 R knee ext 18 and L 15.7 R knee flex 9.9 and L 6.8). Goal Progress: Goal Met Goal 3:: Increase flexibility on the R side (piriformis, HS, LTR) and complete those ROM stretches without pain Goal Progress: Goal Met Goal 4:: Be able to tolerated work duties longer without having to sit and rest Goal Progress: Progressing Plan Plan: DC PT back to . D/C Information Discharge Comments: DC PT to [facility] and back to for reassessment d/c sentence: If there are questions or concerns regarding this patient's physical therapy, please feel free to call me at [phone]. Thank you for the referral of thispatient. Sincerely, Madison Oconnell, CORBY Balance/Gait/Functional tests Balance/Special Test Scores Oswestry Low Back Score: 12 Improvement % Improvement: 20 <Electronically signed by Madison Oconnell MPT> 08/10/24 1127 CC: Dr. Clay Morgan MD; No Primary Care Physician ~ Signed [facility] Work Phone: Discharge summary note 09-08-2020 Note Date & Type Note Facility 09-08-2020 Note Internal Medicine: M ed Team Discharge Summary Chilo Carson : 1965 ADMIT DATE: 09/06/2020 DISCHARGE DATE: 09/08/20 PCP: No primary care provider on file. Visit Status: Admission Code Status: FULL CODE Primary Discharge Diagnosis: Cellulitis Secondary Discharge Diagnoses: Dog bite CAD Prediabetes ÁLVARO Tobacco abuse HTN Reason for Admission & Hospital Course: Chilo Carson is a 55 y.o. male that presented to [facility] on 09/06/2020 and was admitted for Cellulitis. Patient had been previously bitten by a dog and failed OP therapy and required admission for orthopedic evaluations. On the floor, patient was seen by orthopedics. MRI of L arm did not show deep infection, and orthopedics elected to treat him conservatively. ID was also consulted, who recommended Augmentin on discharge. Patient was restarted on some medications for his CAD. Patient was discharged home in stable condition with plans for [place] [facility] Disposition: Home Activity: No restriction. Diet: DIET GENERAL; Discharge Medications: Chilo Carson Home Medication Instructions DIONNE:[id number] Printed on:09/08/20 1343 Medication Information amoxicillin-clavulanate (AUGMENTIN) 875-125 MG per tablet Take 1 tablet by mouth 2 times daily for 4 days aspirin 81 MG chewable tablet Take 1 tablet by mouth daily atorvastatin (LIPITOR) 80 MG tablet Take 1 tablet by mouth nightly Notable Medication Changes & Reasoning: Augmentin for 4 more days to complete 7 day course Aspirin 81 mg daily lifelong Lipitor 80 mg for cholesterol [facility] ID Procedures Performed Bedside I and D on 09/08 Significant Laboratory/Radiographic Data: MRI of L upper arm on 09/06 Large soft tissue laceration along the proximal posterior forearm slightly distal to the elbow. There is associated soft tissue edema/cellulitis involving the forearm, wrist and dorsum of the hand. There is also involvement of the soft tissues along the thenar eminence and first webspace. ? Presumed infectious myositis of the dorsal forearm musculature involving the extensor digitorum musculature, ECU and extensor carpi radialis musculature. ? No deep soft tissue abscess. ? No obvious acute osteomyelitis. ? Follow-up recommended. TTE on 09/07 1. Left ventricle: Systolic function is normal by the biplane method of disks. The estimated ejection fraction is 56%. There are no regional wall motion abnormalities. Left ventricular diastolic function parameters are normal. 2. No significant valve disease. ? Pending Results at Time of Discharge None Follow Up Appointment(s): With Dr. Karl Kim on 09/12 at 3:30 pm at the [facility] [place] up with orthopedics Items to Address at Followup Visit: Resolving cellulitis Finishing Abx Restarting CAD medications HTN follow up May need metformin Patient seen & examined on day of discharge. Please refer to note dated on the day of discharge (09/08/2020) for associated attestation, exam, and plan. [facility] History of Present illness Narrative 09-08-2020 Angeline Cole, DTR - 09/08/2020 2:57 PM Delgado Dickson Jr., MD - 09/08/2020 9:13 AM Cornelio Bran MD - 09/08/2020 7:36 AM Nidhi Swift RN - 09/07/2020 2:30 PM EDT Note Date & Type Note Facility 09-08-2020 History of Present illness Narrative Nutrition rescreen completed. Patient referred to the Dietitian. Images from the original note were not included. Med Team Progress Note Chilo Carson : 1965(55 y.o.) Date: September 08, 2020 Med Team: Frances Attending: Dr. Hartman Chief Complaint: Left Forearm pain/ swelling after dog bite Subjective: - No acute events overnight. - Currently, Mr. Woo feels well. He is in no acute pain and states that he slept restfully. He endorsed no sick symptoms such as fevers, chills, nausea, night sweats, vomiting. When talking about his A1c level, he said that he was motivated to exercise more, eat healthier, and start seeing a primary care physician. He expressed interest in seeing the team here at [facility]. Agree with above. Patient is complaining of pain, mainly at dog bite/scratch sites, Also complains of some hoarseness he states was from yelling at dog. Also spoke with patient given elevated BP. Patient states he was on lisinopril previously for HTN Patient seen and examined at 1145 this AM. I agree with the above. Review of Systems Constitutional: Negative for activity change, appetite change, chills, diaphoresis, fatigue and fever. HENT: Negative for ear discharge, ear pain, mouth sores, sneezing, sore throat and trouble swallowing. Respiratory: Negative for cough, chest tightness, shortness of breath and wheezing. Cardiovascular: Negative for chest pain, palpitations and leg swelling. Gastrointestinal: Negative for abdominal distention, abdominal pain, blood in stool, constipation, diarrhea, nausea and vomiting. Genitourinary: Negative for frequency. Musculoskeletal: Positive for neck stiffness (Chronic disk disease). Skin: Positive for wound. Neurological: Negative. Hematological: Negative. Psychiatric/Behavioral: Negative. Scheduled Meds: aspirin 81 mg Oral Daily enoxaparin 40 mg Subcutaneous Daily sodium chloride flush 3 mL Intravenous Q8H sodium chloride flush 5-40 mL Intravenous 2 times per day famotidine 20 mg Oral BID atorvastatin 80 mg Oral Nightly cefTRIAXone (ROCEPHIN) IV 1,000 mg Intravenous Q24H metroNIDAZOLE 500 mg Intravenous Q8H vancomycin 1,750 mg Intravenous Q12H Continuous Infusions: sodium chloride PRN meds used in last 24hrs: Oxycodone, Acetaminophen Objective: BP (!) 143/76 Pulse 70 Temp 97.6 F (36.4 C) (Temporal) Resp 16 Ht 5' 6 (1.676 m) Wt 207 lb (93.9 kg) SpO2 100% BMI 33.41 kg/m Physical Exam Vitals and nursing note reviewed. Constitutional: General: He is not in acute distress. Appearance: Normal appearance. He is obese. He is not ill-appearing, toxic-appearing or diaphoretic. HENT: Head: Normocephalic and atraumatic. Right Ear: Tympanic membrane normal. Left Ear: Tympanic membrane normal. Nose: Nose normal. No congestion or rhinorrhea. Mouth/Throat: Mouth: Mucous membranes are moist. Pharynx: Oropharynx is clear. No oropharyngeal exudate or posterior oropharyngeal erythema. Eyes: Extraocular Movements: Extraocular movements intact. Conjunctiva/sclera: Conjunctivae normal. Pupils: Pupils are equal, round, and reactive to light. Cardiovascular: Rate and Rhythm: Normal rate and regular rhythm. Pulses: Normal pulses. Heart sounds: Normal heart sounds. No murmur heard. No friction rub. No gallop. Pulmonary: Effort: Pulmonary effort is normal. No respiratory distress. Breath sounds: Normal breath sounds. No stridor. No wheezing or rales. Abdominal: General: Bowel sounds are normal. There is distension. Palpations: Abdomen is soft. Tenderness: There is no guarding. Musculoskeletal: Cervical back: Normal range of motion. Skin: General: Skin is warm and dry. Capillary Refill: Capillary refill takes less than 2 seconds. Coloration: Skin is not jaundiced. Neurological: General: No focal deficit present. Mental Status: He is alert and oriented to person, place, and time. Mental status is at baseline. Psychiatric: Mood and Affect: Mood normal. Behavior: Behavior normal. Thought Content: Thought content normal. Judgment: Judgment normal. [facility] within last 24 hours Lab Results Component Value Date/Time WBC 10.6 09/08/2020 05:01 AM Hemoglobin 12.8 (L) 09/08/2020 05:01 AM Hematocrit 38.0 (L) 09/08/2020 05:01 AM Platelets 283 09/08/2020 05:01 AM MCV 88.0 09/08/2020 05:01 AM Lab Results Component Value Date/Time Sodium 137 09/08/2020 05:01 AM Potassium 4.3 09/08/2020 05:01 AM Chloride 107 09/08/2020 05:01 AM CO2 22 09/08/2020 05:01 AM BUN 14 09/08/2020 05:01 AM CREATININE 0.94 09/08/2020 05:01 AM Glucose 82 09/08/2020 05:01 AM Calcium 8.6 09/08/2020 05:01 AM Magnesium 2.3 09/08/2020 05:01 AM Phosphorus 4.3 09/08/2020 05:01 AM Lab Results Component Value Date/Time AST 41 09/08/2020 05:01 AM ALT 36 09/08/2020 05:01 AM Total Protein 6.7 09/08/2020 05:01 AM Albumin,Serum 3.6 09/08/2020 05:01 AM Total Bilirubin 0.6 09/08/2020 05:01 AM Alkaline Phosphatase 105 09/08/2020 05:01 AM Lab Results Component Value Date/Time Vancomycin Tr 11.6 (L) 09/08/2020 05:08 AM Assessment and Plan: #)Resolving left forearm cellulitis Multiple injuries secondary to dog bite - left forearm, left hand, right arm, left hip and right hip - Leukocytosis (24), Tachycardia (118), undocumented fever on admission - Tetanus vaccine received 09/03/2020 - Failed outpatient ABx - Clindamycin 09/03/20, received Cipro and Clinda IV in [place] 09/05/20 - ABx: Ceftriaxone and Flagyl - Vanc for MRSA coverage given open bite wound with skin laceration, duration of wound being open. DC'ed after negative MRSA PCR -Will transition to PO medication to prepare for discharge - Blood cultures sent in [facility] 09/05/2020 and [facility] 09/06/2020 - Follow up cultures from [facility] - [facility] cultures pending- NGTD - WBC, CRP trending down - ID on board, appreciate recs for de-escalation - Pain medication: Oxy 2.5mg-5mg for moderate to severe pain Q6H - Ortho consulted, bedside I&D done in ED, MRI revealed soft tissue enhancement but no signs of deep tissue abscess or osteomyelitis - Per ortho, no need for surgical treatment Agree with above. DC when okay with ID and ortho. He is much improved. #)Elevated Creatinine ÁLVARO--resolved - Unknown baseline, 1.58 in [facility], 1.13 here in [facility]. 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 Could be a good candidate for metformin since age <60. #)Tobacco use - Smokes half cigar per day for more than 20 years - Encouraged smoking cessation, patient agreeable #)Prior alcohol abuse - Heavy drinker, last drink was 20 years ago #)HTN - slightly elevated overnight, possibly from pain - will reconsider starting lisinopril at office visit - Goals of Care: FULL CODE - DVT Prophylaxis: lovenox 40 q24h - creatinine clearance > 30 - GI Prophylaxis: Pepcid - Diet: Cardiac I performed a history and physical examination of the patient and discussed his management with the medical student. I reviewed the medical student note and agree with the documented findings and plan of care. My additional input is above. Pager #[phone] I have discussed the care of Chilo Carson with the medical student and/or resident. I have personally taken a history, examined the patient, and performed the associated medical decision making activities. I have reviewed & verified the attested documentation. Unless otherwise noted above, this documentation reflects the history, physical exam, and medical decision making that I performed myself. Please see blue and bolded text for my personal highlights or additions to the note. Patient seen and examined by myself on 09/08/20 I spent over 51% of total time >25 minutes counseling/coordinating care and provided discussion regarding plan to de-escalate and DC on oral antibiotics when okay with ID. Patient can do soaks TID at home and follow up in [facility] and with ortho. Images from the original note were not included. [facility] [address] [place] [address] Dept: [phone] Loc: [phone] Orthopedic Progress Note Name: Chilo Carson Date:09/08/2020 Attending:Chilo Burton, DO Subjective NAEO. Doing well. Moving arm without pain. Objective Vitals: Vitals: 09/07/20 0910 09/07/20 1328 09/07/20 1711 09/08/20 0628 BP: (!) 144/74 128/81 (!) 151/76 (!) 143/76 Pulse: 67 73 74 70 Resp: 16 16 18 16 Temp: 97.7 F (36.5 C) 98.7 F (37.1 C) 97.8 F (36.6 C) 97.6 F (36.4 C) TempSrc: Temporal Temporal Temporal Temporal SpO2: 94% 99% 99% 100% Weight: Height: Physical Exam: General: NAD RUE/BLE: Claw de souza without signs of active infection LUE Wounds look very good this morning during the soak, much less erythema and no pain with ROM. No expressible purulence. No induration or fluctuance. Erythema of hand/thenar eminence much improved. Upper arm claw luiz with no signs of infection. SILT: Radial/Ulnar/Median distributions Motor: +AIN/PIN/Hand Intrinsic Pulses: Palpable Radial, BCR<2s all fingers LABS: Recent Labs 09/06/20 0825 09/07/20 0124 09/08/20 0501 WBC 24.0* 13.6* 10.6 HGB 13.5 12.6* 12.8* HCT 40.5 37.8* 38.0* PLT 282 253 283 Recent Labs 09/06/20 0825 09/07/20 0124 09/08/20 0501 NA 132* 137 137 K 4.1 4.5 4.3 CL 99 105 107 CO2 22 24 22 BUN 14 14 14 CREATININE 1.13 1.02 0.94 CALCIUM 8.8 8.5 8.6 PHOS -- 3.9 4.3 Assessment Chilo is a 55 y.o.male with multiple dog bites of his LUE with associated cellulitis s/p BS I&D on 09/07 (also has claw de souza on LUE upper arm and BL thighs and R forearm) Plan Plan: Ok for diet, no plans for operative intervention TID soaks After each soak, repack wounds and replace in splint and continue hanging from IV pole with ice IV abx per primary/ID Cx p Full WB Resting splint for LUE From ortho perspective, patient ok for out patient follow up. Ortho to sign off, please call with questions/concerns Hand/Forearm soak completed at this time. Patient tolerated well. Images from the original note were not included. Med Team Progress Note Chilo Carson : 1965(55 y.o.) Date: September 07, 2020 Med Team: B Attending: Dr. Burton Chief Complaint: Left Forearm Pain/ Swelling after dog bite SUMMARY: PMH CAD and ID s/p stent placement (6 stents in 2017) not on any meds due to loss of medical coverage, Penicillin allergy (nausea and vomiting) seen in [facility] 09/03/2020 for multiple dog bites worse on left hand and left forearm - received tetanus vaccine, dog updated on vaccines. Wound cleaned in ED with irrigation, sent home on Clindamycin. Patient returned to [facility] 09/05 evening due to worsening left forearm pain, swelling and drainage, work up showed WBC of 22, Cr 1.58, CT of forearm without abscess - received IV Cipro and Clinda and was transferred to [facility] due to failed tx. In our ED WBC 24, Bandemia of 4, CRP of 147.5, ESR 39, Xrays show no fractures, Cr of 1.13. Septic work up sent, and patient received Ceftriaxone and Flagyl while in ED. Ortho consulted, did bedside I&D, MRI showed myositis. Subjective: - No acute events overnight. - Currently, Mr. Carson reports feeling much better. Ortho came in this morning and noted his wounds on forearm and hand to be improved and less erythematous. Overnight he endorsed chills but denied fevers, vomiting, diarrhea, and nausea. Review of Systems Constitutional: Positive for chills and diaphoresis. Negative for fever. Respiratory: Negative for cough, chest tightness, shortness of breath, wheezing and stridor. Cardiovascular: Negative for chest pain, palpitations and leg swelling. Gastrointestinal: Negative for blood in stool, constipation, diarrhea, nausea, rectal pain and vomiting. Genitourinary: Positive for frequency. Negative for urgency. Musculoskeletal: Positive for arthralgias and neck pain. Skin: Positive for wound. Neurological: Negative for dizziness, syncope, light-headedness and headaches. Psychiatric/Behavioral: Negative. All other systems reviewed and are negative. Scheduled Meds: aspirin 81 mg Oral Daily sodium chloride flush 3 mL Intravenous Q8H sodium chloride flush 5-40 mL Intravenous 2 times per day famotidine 20 mg Oral BID atorvastatin 80 mg Oral Nightly cefTRIAXone (ROCEPHIN) IV 1,000 mg Intravenous Q24H metroNIDAZOLE 500 mg Intravenous Q8H vancomycin 1,750 mg Intravenous Q12H Continuous Infusions: sodium chloride lactated ringers 75 mL/hr at 09/06/20 1818 PRN meds used in last 24hrs: Oxycodone, acetaminophen Objective: BP 119/63 Pulse 72 Temp 95.8 F (35.4 C) (Temporal) Resp 14 Ht 5' 6 (1.676 m) Wt 207 lb (93.9 kg) SpO2 96% BMI 33.41 kg/m Physical Exam Constitutional: General: He is not in acute distress. Appearance: Normal appearance. He is obese. He is diaphoretic. He is not ill-appearing or toxic-appearing. HENT: Head: Normocephalic and atraumatic. Right Ear: Ear canal normal. Left Ear: Ear canal normal. Nose: Nose normal. No congestion or rhinorrhea. Mouth/Throat: Mouth: Mucous membranes are moist. Pharynx: Oropharynx is clear. No oropharyngeal exudate or posterior oropharyngeal erythema. Eyes: General: Right eye: No discharge. Left eye: No discharge. Extraocular Movements: Extraocular movements intact. Conjunctiva/sclera: Conjunctivae normal. Pupils: Pupils are equal, round, and reactive to light. Neck: Musculoskeletal: Normal range of motion. Neck rigidity present. Neurological: Mental Status: He is alert. [facility] within last 24 hours Lab Results Component Value Date/Time WBC 13.6 (H) 09/07/2020 01:24 AM Hemoglobin 12.6 (L) 09/07/2020 01:24 AM Hemoglobin 13.5 09/06/2020 08:25 AM Hematocrit 37.8 (L) 09/07/2020 01:24 AM Platelets 253 09/07/2020 01:24 AM MCV 86.9 09/07/2020 01:24 AM Lab Results Component Value Date/Time Sodium 137 09/07/2020 01:24 AM Potassium 4.5 09/07/2020 01:24 AM Chloride 105 09/07/2020 01:24 AM CO2 24 09/07/2020 01:24 AM BUN 14 09/07/2020 01:24 AM CREATININE 1.02 09/07/2020 01:24 AM CREATININE 1.13 09/06/2020 08:25 AM Glucose 87 09/07/2020 01:24 AM Calcium 8.5 09/07/2020 01:24 AM Magnesium 2.3 09/07/2020 01:24 AM Phosphorus 3.9 09/07/2020 01:24 AM Lab Results Component Value Date/Time AST 35 09/07/2020 01:24 AM ALT 37 09/07/2020 01:24 AM Total Protein 6.6 09/07/2020 01:24 AM Albumin,Serum 3.5 09/07/2020 01:24 AM Total Bilirubin 1.0 09/07/2020 01:24 AM Alkaline Phosphatase 95 09/07/2020 01:24 AM INR 1.0 09/06/2020 09:54 AM Lab Results Component Value Date/Time Lactic Acid 1.3 09/06/2020 08:25 AM Lab Results Component Value Date/Time Triglycerides 103 09/06/2020 05:06 PM HDL 41 09/06/2020 05:06 PM LDL Cholesterol 125 (A) 09/06/2020 05:06 PM Hemoglobin A1C 6.2 (A) 09/06/2020 05:06 PM Assessment and Plan: Resolving left forearm cellulitis Multiple injuries secondary to dog bite - left forearm, left hand, right arm, left hip and right hip - Leukocytosis (24), Tachycardia (118), undocumented fever on admission - Failed outpatient ABx - Clindamycin 09/03/20, received Cipro and Clinda IV in [facility] 09/05/20 - ABx: Ceftriaxone and Flagyl - Vanc for MRSA coverage given open bite wound with skin laceration, duration of wound being open. Will DC once cultures back - Blood cultures sent in [facility] 09/05/2020 and [facility] 09/06/2020 - Follow up cultures from [facility] - [facility] cultures pending - WBC, CRP trending down - ID on board, appreciate recs for de-escalation - Tetanus vaccine received 09/03/2020 - Pain medication: Oxy 2.5mg-5mg for moderate to severe pain Q6H - Ortho consulted, bedside I&D done in ED, MRI revealed soft tissue enhancement but no signs of deep tissue abscess or osteomyelitis - Per ortho, no need for surgical treatment - NSQIP risk score shows less than 10% risk for serious complication, any complication, readmission, return to OR, discharge to rehab/NF. Less than 1% risk for pneumonia, cardiac complication, SSI, UTI, VTE, kidney failure, and sepsis Elevated Creatinine - Unknown baseline, 1.58 in [facility], 1.13 here in [facility]. Trending down, now 1.02 - Urine studies - Observe kidney function, no current signs of ÁLVARO. 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 Prediabetes -Hgb A1C of 6.2 -Encourage weight loss, exercise, tobacco cessation -Patient educated and given health information on diabetes prevention Tobacco use - Smokes half cigar per day for more than 20 years Prior alcohol abuse - Heavy drinker, last drink was 20 years ago - States he quit cold turkey - Goals of Care: FULL CODE - DVT Prophylaxis: lovenox 40 q24h - creatinine clearance > 30 - GI Prophylaxis: Pepcid - Diet: Cardiac Note reviewed and updated per my findings Leonardo De La Cruz MD on 09/07/20 at 12:45 PM EDT PGY-2 Internal Medicine Page #[phone] from 7am - 5pm Page AI2 or AI3 from 5pm to 7am Associated attestation - Chilo Burton DO - 09/07/2020 8:06 PM EDT Patient admitted overnight by admitting residents. I saw and examined the patient 09/07/20 for the first time. See my notes on H&P. Images from the original note were not included. [facility] H5 MED SURG [address] [id number] Dept: [phone] Loc: [phone] Orthopedic Progress Note Name: Chilo Carson Date:09/07/2020 Attending:Chilo N Burton, DO Subjective NAEO. Denies fevers. AFVSS. Reports his arm is feeling much better. Objective Vitals: Vitals: 09/06/20 1617 09/06/20 1629 09/06/20 2134 09/07/20 0113 BP: (!) 147/68 125/72 119/63 Pulse: 77 87 72 Resp: 18 16 14 Temp: 98.3 F (36.8 C) 99.3 F (37.4 C) 95.8 F (35.4 C) TempSrc: Temporal Temporal Temporal SpO2: 98% 97% 96% Weight: 207 lb (93.9 kg) Height: 5' 6 (1.676 m) Physical Exam: General: NAD RUE/BLE: Claw de souza without signs of active infection LUE Dressing/splint/packing removed. Erythema has decreased significantly. Some serosanguinous drainage on dressing. No expressible purulence. No induration or fluctuance. Erythema of hand/thenar eminence much improved. Upper arm claw luiz with no signs of infection. SILT: Radial/Ulnar/Median distributions Motor: +AIN/PIN/Hand Intrinsic Pulses: Palpable Radial, BCR<2s all fingers LABS: Recent Labs 09/06/20 0825 09/07/20 0124 WBC 24.0* 13.6* HGB 13.5 12.6* HCT 40.5 37.8* PLT 282 253 Recent Labs 09/06/20 0825 09/07/20 0124 NA 132* 137 K 4.1 4.5 CL 99 105 CO2 22 24 BUN 14 14 CREATININE 1.13 1.02 CALCIUM 8.8 8.5 PHOS -- 3.9 Recent Labs 09/06/20 0954 INR 1.0 Recent Labs 09/06/20 0825 SEDRATE 39* CRP 147.5* No results for input(s): HCG in the last 72 hours. Assessment Chilo is a 55 y.o.male with multiple dog bites of his LUE with associated cellulitis s/p BS I&D on 09/07 (also has claw de souza on LUE upper arm and BL thighs and R forearm) Plan Plan: Ok for diet, no plans for operative intervention Will update Dr. Efe marie this morning, this was discussed w/ nursing After ea soak, repack wounds and replace in splint and continue hanging from IV pole with ice IV abx per primary/ID Cx p Full WB Resting splint for LUE Ortho to sign off, please call with questions/concerns Kurtis Billingsley MD PGY-2 Orthopaedic Surgery documented in this encounter [facility] Work Phone: Hospital Discharge instructions 09-07-2020 Instructions Note Date & Type Note Facility 09-07-2020 Hospital Discharg e instructions Kurtis Billingsley JD, MD - 09/07/2020 Orthopedic Discharge Instruction Weight bearing: as tolerated Activity as tolerated Immobilization: splint for comfort: Keep clean, dry, and intact Ice/elevate Follow up with Dr. Wilks, in 1 week for wound check. Call to schedule your appointment as soon as possible. Take medications as prescribed documented in this encounter [facility] Work Phone: Evaluation note Note Date & Type Note Facility Evaluation note Diagnosis Cellulitis of left arm- Primary Cellulitis and abscess of upper arm and forearm Leukocytosis, unspecified type Dog bite, subsequent encounter documented in this encounter [facility] Work Phone: Evaluation note Note Date & Type Note Facility Evaluation note Diagnosis Healthcare maintenance Routine general medical examination at a health care facility documented in this encounter [facility] Work Phone: Evaluation note Note Date & Type Note Facility Evaluation note No assessment information availa ble [facility] Work Phone: Reason for referral (narrative) Note Date & Type Note Facility Reason for referral (narrative) No reason for referral information available [facility] Work Phone: Advance Directives No Advanced Directives Records FoundLatest Code Status on File Code Status Date Activated Date Inactivated Comments Full Code 09/06/2020 4:08 PM Latest Code Status on File Code Status Date Activated Date Inactivated Comments Full Code 09/06/2020 4:08 PM 09/08/2020 7:19 PM Advance Directive Response Recorded Date/ Time Living Will No July 19, 2021 1:11pm Power of Market Research Manager No March 25th, 20 22 1:11pm Advance Directive Response Recorded Date/ Time Do you have a Healthcare Power of Market Research Manager? No October 24, 2024 6:17pm Summary Purpose Family History No Family History Records Found Relationship Condition Age at Onset Recorded Date/T rebel grandmother Diabetes mellitus Unknown Cardiac disease Unknown Hypertension Unknown uncle Malignant neoplasm Unknown sister Malignant neoplasm of breast Unknown mother Hypertension Unknown father Cardiac disease Unknown Chief Complaint and Reason for Visit Chief Complaint SOB COVID POS ABD PAIN Chief Complaint Admit Date R MHAND PAIN/LUMBAR SPODYLOSIS May 042024 3:19pm BACK PAIN. RX HERE August 10, 2024 11: 00am Chief Complaint Admit Date BACK PAIN. RX HERE August 10, 2024 11: 00am ALTERED LOC October 24, 2024 5:31 pm Additional Source Comments Reason for Visit (unrecogniz ed section and content) Reason Comments Animal Bite Pt here to the ER fr om [place] for dog bit that happened Mon. Pt states he knows the dog and it is up to date on shots. Ordered Prescriptions (unrec ognized section and content) Prescription Sig Dispensed Refills Start Date End Da te amoxicillin-clavulanate (AUGMENTIN) 875-125 MG per tablet Take 1 tablet by mouth 2 times daily for 4 days 8 tablet 0 09/08/2020 09/12/2020 atorvastatin (LIPITOR) 80 MG tablet Take 1 tablet by mouth nightly 30 tablet 3 09/08/2020 aspirin 81 MG chewable tablet Take 1 tablet by mouth daily 30 tablet 3 09/09/2020 Scheduled Active and Recently Administ ered Medications (unrecognized section and content) Medication Order 09/06/2020 09/07/2020 09/08/2020 aspirin chewable tablet 81 mg 81 mg, Oral, DAILY, First dose on Thu09/07/20 at 0900 0907 (Given - Provider: Nidhi Holley, VERITO) 0834 (Given - Provider: Candy Hagen, VERITO) atorvastatin (LIPITOR) tablet 80 mg 80 mg, Oral, NIGHTLY, First dose on Thu09/06/20 at 2100 2100 (Given - Provider: Roma Brumfield, VERITO) 2138 (Given - Provider: Diana Rojo, VERITO) 2100 (Due) cefTRIAXone sodium 1,000 mg in dextrose 5 % 50 mL IVPB (add-vantage) (COMPLETED) 1,000 mg, Intravenous, ONCE, 1 dose, Eliana 09/06/20 at 0845 0902 (New Bag - Provider: Bonnie Burnham RN)1003 (Stopped - Provider: Bonnie Burnham RN) cefTRIAXone sodium 1,000 mg in dextrose 5 % 50 mL IVPB (add-vantage) 1,000 mg, Intravenous, EVERY 24 HOURS, First dose on Thu09/07/20 at 0900, Until Discontinued 1037 (New Bag - Provider: Nidhi Holley, VERITO)1107 (Stopped - Provider: Nidhi Holley, VERITO) 0833 (New Bag - Provider: Candy Hagen, VERITO)0903 (Stopped - Provider: Candy Hagen, RN) enoxaparin (LOVENOX) injection 40 mg 40 mg, Subcutaneous, DAILY, First dose on Thu09/07/20 at 1245 1252 (Given - Provider: Nidhi Holley, VERITO) 0838 (Given - Provider: Candy Hagen, RN) famotidine (PEPCID) tablet 20 mg 20 mg, Oral, 2 TIMES DAILY, First dose on Thu09/06/20 at 2100 2100 (Given - Provider: Roma Brumfield, VERITO) 0906 (Given - Provider: Nidhi Holley, VERITO)2138 (Given - Provider: Diana Rojo RN) 0833 (Given - Provider: Candy Hagen, VERITO)2100 (Due) lidocaine PF 1 % injection 30 mL (COMPLETED) 30 mL, Intradermal, ONCE, Thu09/06/20 at 0815, For 1 dose, Please have at bedside 1200 (Given by Other - Provider: Bonnie Burnham RN) metronidazole (FLAGYL) 500 mg in NaCl 100 mL IVPB premix (COMPLETED) 500 mg, Intravenous, ONCE, 1 dose, Eliana 09/06/20 at 0845 1003 (New Bag - Provider: Bonnie Burnham RN)1159 (Stopped - Provider: Bonnie Burnham RN) metronidazole (FLAGYL) 500 mg in NaCl 100 mL IVPB premix 500 mg, Intravenous, EVERY 8 HOURS, First dose on Thu09/06/20 at 1800, Until Discontinued 1731 (New Bag - Provider: Lacey Pompa RN)1832 (Stopped - Provider: Lacey Pompa RN) 0124 (New Bag - Provider: Roma Brumfield, VERITO)0224 (Stopped - Provider: Roma Brumfield, VERITO)0907 (New Bag - Provider: Nidhi Holley, VERITO)1007 (Stopped - Provider: Nidhi Holley, VERITO)1833 (New Bag - Provider: Nidhi Holley, VERITO)1933 (Stopped - Provider: Diana Rojo RN) 0248 (New Bag - Provider: Diana Rojo RN)0348 (Stopped - Provider: Diana Rojo, VERITO)0947 (New Bag - Provider: Candy Hagen RN)1047 (Stopped - Provider: Candy Hagen RN)1800 (Due) sodium chloride flush 0.9 % injection 3 mL(Linked Group 1) 3 mL, Intravenous, EVERY 8 HOURS, First dose on Eliana 09/06/20 at 0830, Flush line with 3-5 mL 0830 (Due)1824 (Not Given - Provider: Lacey Pompa RN - Reason: IV Fluid Infusing) 0030 (Canceled Entry - Provider: Roma Brumfield RN)0906 (Not Given - Provider: Nidhi Holley RN - Reason: IV Fluid Infusing)1704 (Not Given - Provider: Nidhi Holley RN - Reason: IV Fluid Infusing) 0449 (Not Given - Provider: Diana Rojo RN - Reason: Other)0835 (Not Given - Provider: Candy Hagen RN - Reason: IV Fluid Infusing)1630 (Due) sodium chloride flush 0.9 % injection 5-40 mL 5-40 mL, Intravenous, EVERY 12 HOURS SCHEDULED (2 times per day), First dose on Eliana 09/06/20 at 2100, For Line Patency: Peripheral IV = 5 mL; Midline or Central Line = 10 mL/lumen. If following IV push medication, administer flush at same rate as the IV push. Flush volume is determined by type of infusion therapy being given. For non-viscous solutions use: Peripheral IV = 5 mL Midline or Central Line = 10 mL/lumen For viscous solutions (i.e. blood components, parenteral nutrition, contrast media, or after obtaining blood sample) use: Peripheral IV = 10 mL Midline or Central Line = 20 mL/lumen 2002 (Not Given - Provider: Roma Brumfield RN - Reason: IV Fluid Infusing) 09 (Not Given - Provider: Nidhi Holley RN - Reason: IV Fluid Infusing)1900 (Not Given - Provider: Diana Rojo RN - Reason: IV Fluid Infusing) 0835 (Not Given - Provider: Candy Hagen RN - Reason: IV Fluid Infusing)2100 (Due) vancomycin (VANCOCIN) 1,750 mg in dextrose 5 % 500 mL IVPB 1,750 mg (18.6 mg/kg), Intravenous, at 250 mL/hr, Administer over 120 Minutes, EVERY 12 HOURS, First dose on Eliana 09/06/20 at 1645 1839 (New Bag - Provider: Lacey Pompa RN)2039 (Stopped - Provider: Roma Brumfield RN) 0510 (New Bag - Provider: Roma Brumfield RN)0710 (Stopped - Provider: Nidhi Holley, VERITO)1629 (New Bag - Provider: Nidhi Holley, VERITO)1829 (Stopped - Provider: Nidhi Holley, VERITO) 0509 (New Bag - Provider: Diana Rojo RN)0709 (Stopped - Provider: Diana Rojo RN)1700 (Due - Provider: Prema Staton [facility]) Continuous Medication Order 09/06/2020 09/07/2020 09/08/2020 lactated ringers infusion (CANCELED) Intravenous, at 75 mL/hr, CONTINUOUS, Starting Eliana 09/06/20 at 1645 1818 (New Bag - Provider: Lacey Pompa RN) PRN Medication Order 09/06/2020 09/07/2020 09/08/2020 0.9 % sodium chloride infusion 25 mL, Intravenous, at 100 mL/hr, PRN, If patient receiving piggyback infusions without ordered maintenance IV fluids or with frequent/long duration piggyback infusions, Starting Eliana 09/06/20 at 1602, Administer at the same rate as the piggyback being infused. acetaminophen (TYLENOL) suppository 650 mg(Linked Group 2) 650 mg, Rectal, EVERY 6 HOURS PRN, Pain Mild (1-3), Fever, For temp greater than 100.4 F (38 C), Starting Eliana 09/06/20 at 1602, Administer if oral route cannot be used. 2058 (See Alternative - Provider: Roma Brumfield RN) 0652 (See Alternative - Provider: Roma Brumfield RN) acetaminophen (TYLENOL) tablet 650 mg(Linked Group 2) 650 mg, Oral, EVERY 6 HOURS PRN, Pain Mild (1-3), Fever, For temp greater than 100.4 F (38 C), Starting Eliana 09/06/20 at 1602, Maximum dose of acetaminophen is 4000 mg from all sources in 24 hours. 2058 (Given - Provider: Roma Brumfield RN) 0652 (Given - Provider: Roma Brumfield RN) gadobutrol (GADAVIST) injection 9 mL (COMPLETED) 9 mL, Intravenous, IMG ONCE PRN, Other, Starting Eliana 09/06/20 at 1325, For 1 dose 1342 (Given - Provider: Piil Rm) ondansetron (ZOFRAN) injection 4 mg(Linked Group 3) 4 mg, Intravenous, EVERY 6 HOURS PRN, Nausea, Vomiting, Starting Eliana 09/06/20 at 1602, Administer if oral route cannot be used. oxyCODONE (ROXICODONE) immediate release tablet 2.5 mg 2.5 mg, Oral, EVERY 6 HOURS PRN, Pain Moderate (4-6), Starting Eliana 09/06/20 at 1602 1700 (Given - Provider: Lacey Pompa RN) oxyCODONE (ROXICODONE) immediate release tablet 5 mg 5 mg, Oral, EVERY 6 HOURS PRN, Pain Severe (7-10), Starting Eliana 09/06/20 at 1602 0652 (Given - Provider: Roma Brumfield RN)1308 (Given - Provider: Nidhi Holley RN - Comment: computer in room freezing)2138 (Given - Provider: Diana Rojo RN) 0509 (Given - Provider: Diana Rojo RN) perflutren lipid microspheres (DEFINITY) injection 1.65 mg 1.65 mg (1.5 mL), Intravenous, IMG ONCE PRN, Other, Suboptimal Echo Image, Starting Eliana 09/06/20 at 1602, For 72 hours, Administer up to 1.65 mg via slow IVP for suboptimal echocardiogram enhancement. May administer as concentrated dose or diluted in 8.5 mL of 0.9% sodium chloride for a total volume of 10 mL. May administer as divided doses to reach optimal image enhancement. promethazine (PHENERGAN) tablet 12.5 mg(Linked Group 3) 12.5 mg, Oral, EVERY 6 HOURS PRN, Nausea, Vomiting, Starting Eliana 09/06/20 at 1602 senna (SENOKOT) 8.8 MG/5ML syrup 8.8 mg 8.8 mg (5 mL), Oral, 2 TIMES DAILY PRN, Constipation, Starting Eliana 09/06/20 at 1602, First line therapy for constipation sodium chloride flush 0.9 % injection 5-40 mL 5-40 mL, Intravenous, PRN, Line Care, After every IV line use, Starting Eliana 09/06/20 at 1602, For Line Patency: Peripheral IV = 5 mL; Midline or Central Line = 10 mL/lumen. If following IV push medication, administer flush at same rate as the IV push. Flush volume is determined by type of infusion therapy being given. For non-viscous solutions use: Peripheral IV = 5 mL Midline or Central Line = 10 mL/lumen For viscous solutions (i.e. blood components, parenteral nutrition, contrast media, or after obtaining blood sample) use: Peripheral IV = 10 mL Midline or Central Line = 20 mL/lumen sodium chloride flush 0.9 % injection 5-40 mL 5-40 mL, Intravenous, PRN, Line Care, Per Aligning Inspector Request, Starting Eliana 09/06/20 at 1602, For 72 hours, May use order for Line Care after every IV line use and Agitated Saline Bubble Study. Administration for Bubble Study per narrow gauge operator request for only. Remove 1 mL 0.9% sodium chloride from 10 mL syringe for creating agitated saline. If following IV push medication, administer flush at same rate as the IV push. Flush volume is determined by type of infusion therapy being given. , For non-viscous solutions use: Peripheral IV = 5 mL Midline or Central Line = 10 mL/lumen For viscous solutions (i.e. blood components, parenteral nutrition, contrast media, or after obtaining blood sample) use: Peripheral IV = 10 mL Midline or Central Line = 20 mL/lumen Linked Groups Order Group 1: Saline lock IV (COMPLETED) Routine, CONTINUOUS, Starting Eliana 09/06/20 at 0830, Until Specified And sodium chloride flush 0.9 % injection 3 mLJump to med 3 mL, Intravenous, EVERY 8 HOURS, First dose on Eliana 09/06/20 at 0830
Flush line with 3-5 mL
Group 2: acetaminophen (TYLENOL) tablet 650 mgJump to med 650 mg, Oral, EVERY 6 HOURS PRN, Pain Mild (1-3), Fever, For temp greater than 100.4 F (38 C), Starting Eliana 09/06/20 at 1602
Maximum dose of acetaminophen is 4000 mg from all sources in 24 hours.
Or acetaminophen (TYLENOL) suppository 650 mgJump to med 650 mg, Rectal, EVERY 6 HOURS PRN, Pain Mild (1-3), Fever, For temp greater than 100.4 F (38 C), Starting Eliana 09/06/20 at 1602
Administer if oral route cannot be used.
Group 3: promethazine (PHENERGAN) tablet 12.5 mgJump to med 12.5 mg, Oral, EVERY 6 HOURS PRN, Nausea, Vomiting, Starting Eliana 09/06/20 at 1602 Or ondansetron (ZOFRAN) injection 4 mgJump to med 4 mg, Intravenous, EVERY 6 HOURS PRN, Nausea, Vomiting, Starting Eliana 09/06/20 at 1602
Administer if oral route cannot be used.
(unrecognized sect ion and content) No Status Records FoundNo Status Records Found INFORMATION SOURCE (unrecogn ized section and content) DATE CREATED AUTHOR 09/18/2020 [facility] tem DATE CREATED AUTHOR AUTHOR'S YURY ATION 11/26/2024 [facility] y [facility] Goals (unrecognized section and content) Goals may be documented in a n alternate sectionGoals may be documented in an alternate sectionGoals may be documented in an alternate section Care Teams (unrecognized sec tion and content) Team Status: Active Member Role Status Dates No Primary Care Physician Primary Care Provider Active Team Status: Inactive Member Role Status Dates No Primary Care Physician Primary Care Provider Active Start: May 04, 2024 End: May 04, 2024 Dr. Clay Morgan MD Attending Provider Active Start: May 04, 2024 End: May 04, 2024 Dr. Clay Morgan MD Referring Provider Active Start: May 04, 2024 End: May 04, 2024 Team Status: Inactive Member Role Status Dates No Primary Care Physician Primary Care Provider Active Start: August 10, 2024 End: August 10, 2024 Dr. Clay Morgan MD Attending Provider Active Start: August 10, 2024 End: August 10, 2024 Dr. Clay Morgan MD Referring Provider Active Start: August 10, 2024 End: August 10, 2024 Team Status: Active Member Role/Relationship Status Dates No Primary Care Physician Primary Care Provider Active Team Status: Inactive Member Role/Relationship Status Dates No Primary Care Physician Primary Care Provider Active Start: August 10, 2024 End: August 10, 2024 Dr. Clay Morgan MD Attending Provider Active Start: August 10, 2024 End: August 10, 2024 Dr. Clay Morgan MD Referring Provider Active Start: August 10, 2024 End: August 10, 2024 Team Status: Inactive Member Role/Relationship Status Dates No Primary Care Physician Primary Care Provider Active Start: October 24, 2024 End: October 24, 2024 Dr. Sandro Johnson DO Emergency Provider Active Start: October 24, 2024 End: October 24, 2024 FOR RECORDS PERTAINING TO PATIENTS WHO ARE OR HAVE BEEN ENROLLED IN A CHEMICAL DEPENDENCY/SUBSTANCEABUSE PROGRAM, SOME INFORMATION MAY BE OMITTED. This clinical summary was aggregated from multiple sources. Caution should be exercised in using it in the provision of clinical care. This summary normalizes information from multiple sources, and as a consequence, information in this document may materially change the coding, format and clinical context of patient data. In addition, data may be omitted in some cases. CLINICAL DECISIONS SHOULD BE BASED ON THE PRIMARY CLINICAL RECORDS. [employer] provides no warranty or guarantee of the accuracy or completeness of information in this document.
== END | disposition home or self-care (01) ==
LOC: RAD 16:19
PROVIDERS: PCP Family Medicine; Referring Provider Family Medicine; Visit Provider Family Medicine
DX: R06.09 Other forms of dyspnea (principal)
CPT/HCPCS: 71046

== ENCOUNTER → 2025-03-06 | Outpatient (CLI) | payer MEDICAID, SELFPAY ==
--- NOTE | 2025-03-06 09:38 | STEWCON_ITS ---
Reason For Study Reason For Study: CAD Stress Results Protocol: Gibran Protocol WITH DEFINITY Maximum Predicted HR: 160 bpm Target HR: 136 bpm % Maximum Predicted HR: 81 % DurationHeart Rate Stage (mm:ss) (bpm) BP Comment Baseline 90 146/82No Chest Pain; 3 ML Diluted Definity Gibran Protocol Stage I 3:00 118 170/78No Chest Pain; Moderate Dyspnea Gibran Protocol Stage II 1:09 129 / No Chest Pain; Severe Dyspnea; Fatigue Recovery 102 150/70No Chest Pain; No Dyspnea Stress Duration: 4:09 mm:ss Maximum Stress HR: 129 bpm METS: 6 Baseline Echocardiogram Findings Stress Echo Wall motion Data Resting WM Intermediate WM Stress WM Resting Wall Motion Wall Motion Stress No regional wall motion abnormalities Inferior and posterior cyr fail to noted. augment postexercise. Postexercise LVEF 65%. EKG Data Sinus rhythm with high lateral ST-T wave changes. Poor R wave progression across precordial leads. Stress ECG was nondiagnostic secondary to baseline abnormalities. ECHO/Stress Test Echo W/Contrast Interpretation Summary 81% of maximum predicted heart rate achieved. Walked 4 minutes and 9 seconds on the treadmill according to Gibran protocol. No chest pain reported however severe shortness of breath reported. Nondiagnostic stress ECG secondary to baseline abnormality. Inferior and posterior cyr failed to augment post exercise. Stress echocardiogram positive for inferior and posterior ischemia. Ordering Physician: Caron Rea Referring Physician: Caron Rea Performed By: Karla Garcia RDCS
== END | disposition home or self-care (01) ==
LOC: CVS 09:36
PROVIDERS: PCP Family Medicine; Referring Provider Family Medicine; Visit Provider Family Medicine
DX: I25.10 Atherosclerotic heart disease of native coronary artery without angina pectoris (principal)
CPT/HCPCS: 93350; 93017; Q9957; A4216; C8928